=== PATIENT | female | born 1975 | race Caucasian/White ===

== ENCOUNTER 2016-12-10 18:48 | Observation (INO) | payer MEDICAID ==
[~2016-12-10] VITALS: Ht 157.5 cm; Wt 94.9 kg
[~2016-12-10 18:48] MED LIST: AZIT250T PO; BENZ100C PO; NYST1000 PO; PRED50TA PO
[2016-12-10] MEDS ORDERED: NITROGLYCERIN SUBLINGUAL 0.4 MG BOTTLE OF 25. SL PRN (19:45)
[2016-12-10 20:01] LABS: BASO # 0.1 x10^3/uL (0.0-0.2); BASO % 1 % (0-3); EOS % 1 % (0-3); HEMATOCRIT 42.9 % (36.0-47.0); HEMOGLOBIN 14.2 g/dL (12.0-15.5); LYMPH # 3.1 x10^3/uL (1.0-4.8); LYMPH % 21 % (24-48); MEAN CORPUSCULAR HEMOGLOBIN 31 pg (25-35); MEAN CORPUSCULAR HGB CONC 33 g/dL (31-37); MEAN CORPUSCULAR VOLUME 92 fL (79-100); MONO % 4 % (0-9); NEUT % 74 % (31-73); PLATELET COUNT 342 x10^3/uL (140-400); RED BLOOD COUNT 4.65 x10^6/uL (3.50-5.40); RED CELL DISTRIBUTION WIDTH 13.3 % (11.5-14.5); WHITE BLOOD COUNT 14.8 x10^3/uL (4.0-11.0)
[2016-12-10] MEDS ORDERED: ACETAMINOPHEN 325 MG TABLET. PO PRN ×2 (20:15→21:00)
[2016-12-10] MEDS ORDERED: ONDANSETRON PF 4 MG/2 ML VIAL. IV PRN ×2 (20:15→21:00)
[2016-12-10] MEDS ORDERED: FENTANYL PF 100 MCG/2 ML VIAL. IV PRN (20:15)
[2016-12-10 20:19] LABS: CALCIUM 9.5 mg/dL (8.5-10.1); CREATININE 0.7 mg/dL (0.6-1.0); GFR 92.2; POTASSIUM 3.5 mmol/L (3.5-5.1)
--- NOTE | 2016-12-10 20:24 | PHYS DOC ---
Past Medical History Past Medical History: Asthma, Bipolar, Bronchitis, COPD, CVA, Depression, Diabetes-Type II, High Cholesterol, Hypertension, Seizure, Stroke, Other Additional Past Medical Histor: DJD, NEUROPATHY, CHRONIC PAIN Past Surgical History: Appendectomy, Cholecystectomy, Tonsillectomy, Tubal ligation, Other Additional Past Surgical Histo: Tubes,X3 hernia, ear tubes Additional Information: 1 PPD Alcohol Use: None Drug Use: None Adult General Chief Complaint Chief Complaint: CHEST PAIN HPI HPI 41-year-old female who has had ongoing chest pain that started today while she was walking in her home. She states it is significant and localized to the middle of the chest and rated an 8 out of 10 on the pain scale. Patient does have history of multiple comorbidities including asthma, hypertension, hyperlipidemia, diabetes. Patient does not believe she is a had a significant cardiac workup before. She denies ever having chest pain to this degree. She does state mild shortness breath with her symptoms. She is speaking in complete sentences and in no acute distress at this time. Review of Systems Review of Systems Constitutional: Denies fever or chills [] Eyes: Denies change in visual acuity, redness, or eye pain [] HENT: Denies nasal congestion or sore throat [] Respiratory: Denies cough or shortness of breath [] Cardiovascular: No additional information not addressed in HPI [] GI: Denies abdominal pain, nausea, vomiting, bloody stools or diarrhea [] : Denies dysuria or hematuria [] Musculoskeletal: Denies back pain or joint pain [] Integument: Denies rash or skin lesions [] Neurologic: Denies headache, focal weakness or sensory changes [] Endocrine: Denies polyuria or polydipsia [] Current Medications Current Medications Current Medications Medications (Trade) Dose Ordered Sig/[facility] Start Time Stop Time Status Last Admin Dose Admin Acetaminophen (Tylenol) 650 mg PRN Q4HRS PRN 12/10/16 20:15 12/11/16 20:14 Fentanyl Citrate (Fentanyl 2ml Vial) 50 mcg PRN Q2HR PRN 12/10/16 20:15 12/11/16 20:14 Nitroglycerin (Nitrostat) 0.4 mg PRN Q5MIN PRN 12/10/16 19:45 12/10/16 19:50 0.4 MG Ondansetron HCl (Zofran) 4 mg PRN Q8HRS PRN 12/10/16 20:15 12/11/16 20:14 Allergies Allergies Allergies Coded Allergies Type Severity Reaction Last Updated Verified Penicillins Allergy Intermediate 04/12/15 Yes ibuprofen Allergy Intermediate 04/12/15 Yes ketorolac Allergy Intermediate 04/12/15 Yes prednisolone Allergy Intermediate 04/12/15 Yes red dye Allergy Intermediate 04/12/15 Yes tramadol Allergy Intermediate 04/12/15 Yes Physical Exam Physical Exam Constitutional: Well developed, well nourished, no acute distress, non-toxic appearance. [] HENT: Normocephalic, atraumatic, bilateral external ears normal, oropharynx moist, no oral exudates, nose normal. [] Eyes: PERRLA, EOMI, conjunctiva normal, no discharge. [] Neck: Normal range of motion, no tenderness, supple, no stridor. [] Cardiovascular:Heart rate regular rhythm, no murmur [] Lungs & Thorax: Bilateral breath sounds clear to auscultation [] Abdomen: Bowel sounds normal, soft, no tenderness, no masses, no pulsatile masses. [] Skin: Warm, dry, no erythema, no rash. [] Back: No tenderness, no CVA tenderness. [] Extremities: No tenderness, no cyanosis, no clubbing, ROM intact, no edema. [] Neurologic: Alert and oriented X 3, normal motor function, normal sensory function, no focal deficits noted. [] Psychologic: Affect normal, judgement normal, mood normal. [] Current Patient Data Vital Signs Vital Signs Date Time Temp Pulse Resp B/P Pulse Ox O2 Delivery O2 Flow Rate FiO2 12/10/16 19:50 90 139/73 12/10/16 18:48 98.8 17 98 Room Air 98.8 Lab Values Laboratory Tests Test 12/10/16 19:40 White Blood Count 14.8x10^3/uL (4.0-11.0) H Red Blood Count 4.65x10^6/uL (3.50-5.40) Hemoglobin 14.2g/dL (12.0-15.5) Hematocrit 42.9% (36.0-47.0) Mean Corpuscular Volume 92fL (79-100) Mean Corpuscular Hemoglobin 31pg (25-35) Mean Corpuscular Hemoglobin Concent 33g/dL (31-37) Red Cell Distribution Width 13.3% (11.5-14.5) Platelet Count 342x10^3/uL (140-400) Neutrophils (%) (Auto) 74% (31-73) H Lymphocytes (%) (Auto) 21% (24-48) L Monocytes (%) (Auto) 4% (0-9) Eosinophils (%) (Auto) 1% (0-3) Basophils (%) (Auto) 1% (0-3) Neutrophils # (Auto) 10.9x10^3uL (1.8-7.7) H Lymphocytes # (Auto) 3.1x10^3/uL (1.0-4.8) Monocytes # (Auto) 0.6x10^3/uL (0.0-1.1) Eosinophils # (Auto) 0.1x10^3/uL (0.0-0.7) Basophils # (Auto) 0.1x10^3/uL (0.0-0.2) Laboratory Tests 12/10/16 19:40 EKG EKG EKG as interpreted by me shows a sinus rhythm with a rate of 79 bpm. There does appear to be a left axis. There does not appear to be any acute ST findings. Radiology/Procedures Radiology/Procedures One view of the chest as interpreted by me does not demonstrate an acute cardiopulmonary abnormality. Course & Med Decision Making Course & Med Decision Making Pertinent Labs and Imaging studies reviewed. (See chart for details) This 41-year-old female with ongoing chest pain was given a subungual nitroglycerin. Patient was given a full aspirin by EMS. I'll be admitting her to the hospital for observation for her ongoing chest pain. Her first set of cardiac enzymes still pending at this time. Her EKG and chest x-ray are unremarkable. I discussed the need for admission and the case with Dr. Patel who agreed to admit the patient with cardiology consult. Dragon Disclaimer Dragon Disclaimer This electronic medical record was generated, in whole or in part, using a voice recognition dictation system. Departure Departure Impression: Primary Impression: Chest pain Disposition: ADMITTED INPATIENT Admitting Physician: Donato Patel Condition: STABLE Referrals: [facility] (PCP) MARII CASON DO Dec 10, 2016 20:24
[2016-12-10] MEDS ORDERED: hydrALAZINE 20 MG/ML VIAL. IVP PRN (21:00)
[2016-12-10] MEDS ORDERED: HYDROCODONE/APAP 5/325MG TABLET. PO PRN (21:00)
[2016-12-10] MEDS ORDERED: ALBUTEROL SULFATE 2.5 MG/3 ML NEBU. NEB PRN (21:00)
--- NOTE | 2016-12-10 21:08 | PDOC1 ---
History and Physical Past Medical History Past Medical History Past Medical History: Asthma, Bipolar, Bronchitis, COPD, CVA, Depression, Diabetes-Type II, High Cholesterol, Hypertension, Seizure, Stroke, DJD, NEUROPATHY, CHRONIC PAIN Past Surgical History: Appendectomy, Cholecystectomy, Tonsillectomy, Tubal ligation, Tubes,X3 hernia, ear tubes Family History Family History: Other (no sudden cardiac deaths) Social History Smoke: <1 pack per day Drugs: None Current Problem List Problem List Problems Medical Problems: (1) Chest pain Status: Acute Current Medications Current Medications Current Medications Medications (Trade) Dose Ordered Sig/Bret Start Time Stop Time Status Last Admin Dose Admin Acetaminophen (Tylenol) 325 mg PRN Q6HRS PRN 12/10/16 21:00 UNV Acetaminophen/ Hydrocodone Bitart (Lortab 5/325) 1 tab PRN Q6HRS PRN 12/10/16 21:00 UNV Albuterol Sulfate (Ventolin Neb Soln) 2.5 mg PRN Q4HRS PRN 12/10/16 21:00 UNV Fentanyl Citrate (Fentanyl 2ml Vial) 50 mcg PRN Q2HR PRN 12/10/16 20:15 12/11/16 20:14 Hydralazine HCl (Apresoline) 10 mg PRN Q4HRS PRN 12/10/16 21:00 UNV Nitroglycerin (Nitrostat) 0.4 mg PRN Q5MIN PRN 12/10/16 19:45 12/10/16 19:50 0.4 MG Ondansetron HCl (Zofran) 4 mg PRN Q8HRS PRN 12/10/16 21:00 UNV Allergies Allergies Allergies Coded Allergies Type Severity Reaction Last Updated Verified Penicillins Allergy Intermediate 04/12/15 Yes ibuprofen Allergy Intermediate 04/12/15 Yes ketorolac Allergy Intermediate 04/12/15 Yes prednisolone Allergy Intermediate 04/12/15 Yes red dye Allergy Intermediate 04/12/15 Yes tramadol Allergy Intermediate 04/12/15 Yes ROS Review of System CONSTITUTIONAL: No fever or chills EYES: No recent changes SKIN: No rash or itching CARDIOVASCULAR: Chest pain, NO Syncope, palpitations, or edema RESPIRATORY: No SOB or cough GASTROINTESTINAL: No nausea, vomiting or abdominal pain NEUROLOGICAL: No headaches or weakness ENDOCRINE: No cold or heat intolerance GENITOURINARY: No urgency or frequency of urination MUSCULOSKELETAL: No back pain or joint pain LYMPHATICS: No enlarged lymph nodes PSYCHIATRIC: No anxiety or depression Physical Exam Physical Exam GEN.: No apparent distress. Alert and oriented. HEENT: Head is normocephalic, atraumatic NECK: Supple. no JVD LUNGS: Clear to auscultation. normal airflow HEART: RRR, S1, S2 present. Peripheral pulses intact ABDOMEN: Soft, nontender. Positive bowel sounds. EXTREMITIES: Without any cyanosis. NEUROLOGIC: Normal speech, normal tone PSYCHIATRIC: Normal affect, normal mood. SKIN: No ulcerations Vitals Vitals Vital Signs Date Time Temp Pulse Resp B/P Pulse Ox O2 Delivery O2 Flow Rate FiO2 12/10/16 20:24 84 16 118/59 97 Room Air 12/10/16 18:48 98.8 98.8 Labs Labs Laboratory Tests Test 12/10/16 19:40 White Blood Count 14.8x10^3/uL (4.0-11.0) Red Blood Count 4.65x10^6/uL (3.50-5.40) Hemoglobin 14.2g/dL (12.0-15.5) Hematocrit 42.9% (36.0-47.0) Mean Corpuscular Volume 92fL (79-100) Mean Corpuscular Hemoglobin 31pg (25-35) Mean Corpuscular Hemoglobin Concent 33g/dL (31-37) Red Cell Distribution Width 13.3% (11.5-14.5) Platelet Count 342x10^3/uL (140-400) Neutrophils (%) (Auto) 74% (31-73) Lymphocytes (%) (Auto) 21% (24-48) Monocytes (%) (Auto) 4% (0-9) Eosinophils (%) (Auto) 1% (0-3) Basophils (%) (Auto) 1% (0-3) Neutrophils # (Auto) 10.9x10^3uL (1.8-7.7) Lymphocytes # (Auto) 3.1x10^3/uL (1.0-4.8) Monocytes # (Auto) 0.6x10^3/uL (0.0-1.1) Eosinophils # (Auto) 0.1x10^3/uL (0.0-0.7) Basophils # (Auto) 0.1x10^3/uL (0.0-0.2) Sodium Level 139mmol/L (136-145) Potassium Level 3.5mmol/L (3.5-5.1) Chloride Level 101mmol/L (98-107) Carbon Dioxide Level 28mmol/L (21-32) Anion Gap 10 (6-14) Blood Urea Nitrogen 9mg/dL (7-20) Creatinine 0.7mg/dL (0.6-1.0) Estimated GFR (Cockcroft-Gault) 92.2 Glucose Level 194mg/dL (70-99) Calcium Level 9.5mg/dL (8.5-10.1) Troponin I Quantitative < 0.017ng/mL (0.000-0.055) Laboratory Tests Test 12/10/16 19:40 White Blood Count 14.8x10^3/uL (4.0-11.0) Red Blood Count 4.65x10^6/uL (3.50-5.40) Hemoglobin 14.2g/dL (12.0-15.5) Hematocrit 42.9% (36.0-47.0) Mean Corpuscular Volume 92fL (79-100) Mean Corpuscular Hemoglobin 31pg (25-35) Mean Corpuscular Hemoglobin Concent 33g/dL (31-37) Red Cell Distribution Width 13.3% (11.5-14.5) Platelet Count 342x10^3/uL (140-400) Neutrophils (%) (Auto) 74% (31-73) Lymphocytes (%) (Auto) 21% (24-48) Monocytes (%) (Auto) 4% (0-9) Eosinophils (%) (Auto) 1% (0-3) Basophils (%) (Auto) 1% (0-3) Neutrophils # (Auto) 10.9x10^3uL (1.8-7.7) Lymphocytes # (Auto) 3.1x10^3/uL (1.0-4.8) Monocytes # (Auto) 0.6x10^3/uL (0.0-1.1) Eosinophils # (Auto) 0.1x10^3/uL (0.0-0.7) Basophils # (Auto) 0.1x10^3/uL (0.0-0.2) Sodium Level 139mmol/L (136-145) Potassium Level 3.5mmol/L (3.5-5.1) Chloride Level 101mmol/L (98-107) Carbon Dioxide Level 28mmol/L (21-32) Anion Gap 10 (6-14) Blood Urea Nitrogen 9mg/dL (7-20) Creatinine 0.7mg/dL (0.6-1.0) Estimated GFR (Cockcroft-Gault) 92.2 Glucose Level 194mg/dL (70-99) Calcium Level 9.5mg/dL (8.5-10.1) Troponin I Quantitative < 0.017ng/mL (0.000-0.055) VTE Prophylaxis Ordered VTE Prophylaxis Devices: Yes VTE Pharmacological Prophylaxi: Yes MALCOLM DIAZ MD Dec 10, 2016 21:08
[2016-12-10 21:52] VITALS: BP 139/42
[2016-12-10 23:00] VITALS: BP 114/68
--- NOTE | 2016-12-11 00:22 | ACF ---
Admission Forms Criteria CHEST PAIN Clinical Indications for Admission to Inpatient Care (Place 'X' for any and all applicable criteria): Admission is indicated for chest pain and ANY ONE of the following(1)(2)(3)(4)(5 ): [ ]I. Angina with acute coronary syndrome (Also use Myocardial Infarction or Angina guideline) [ ]II. Hemodynamic instability [ ]III. Angina needing acute intervention as indicated by ALL of the following( 11)(12): [ ]a) Unstable angina is present as indicated by angina that is ANY ONE of the following: [ ]i) New onset [ ]ii) Nocturnal [ ]iii) Prolonged at rest [ ]iv) Progressive [ ]b) Angina warrants acute intervention as indicated by ANY ONE of the following: [ ]i) Recurrent angina (e.g, not responding as previously to treatment) [ ]ii) Angina at rest or with low-level activities despite initial medical therapy [ ]iii) New or presumably new ST-segment depression on ECG [ ]iv) Signs or symptoms of heart failure (eg, dyspnea, pulmonary edema) [ ]v) New or worsening mitral regurgitation [ ]vi) Hemodynamic instability [ ]vii) Dangerous arrhythmia (eg, sustained ventricular tachycardia) [ ]viii) History of percutaneous coronary intervention within 6 months [ ]ix) History of coronary artery bypass graft surgery [ ]x) DEEPTI risk score of 2 or greater[A] [ ]xi) History of Diabetes(14) [ ]xii) High-risk cardiac ischemia findings on noninvasive testing (e.g, echocardiogram, treadmill testing, nuclear scan) [ ]xiii) Chronic renal insufficiency (ie, estimated GFR less than 60 mL/min/1.732m) [ ]xiv) Left ventricular ejection fraction less than 40% [ ]IV. Evidence of NE (eg, cardiac biomarkers positive, ST-segment elevation on ECG) also use Myocardial Infarction Criteria Form. [ ]V. Pulmonary edema [ ]. Respiratory distress [ ]VII. Chest pain indicative of serious diagnosis other than coronary artery disease (eg, aortic dissection) [ X]VIII. Contraindications and/or Inappropriate clinical situations for Observational Care in patients with Chest Pain, when ANY ONE of the following is required: [ ]a) Patient with risk factor for pulmonary embolism, acute coronary syndrome and myocardial infarction (18) [ ]b) Patient with Pulmonary embolism require an average LOS of 4.3 days, therefore emergency department observation management is inappropriate 18,23 [ ]c) Painful condition/s in the elderly, have the highest rate of recidivism after emergency department observation management (10.8%) 20,21,22 [X ]d) Elevated cardiac biomarker requires intensive and exhaustive care (19) [ ]IX. General contraindications and/or Inappropriate clinical situations for Observational Care in patients with Chest Pain, when ANY ONE of the following is required: [ ]a) Prediction of prolongation of LOS based on ANY ONE of the following may be considered as a contraindication for observational care 2, 3, 4, 5, 6, 7, 8, 9, 10, 11 [ ]i) Age > 65 yrs. [ ]ii) Patient arriving by ambulance [ ]iii) Patient with high acuity [ ]iv) Patient requiring vital sign monitoring [ ]v) Patient on IV medication [ ]b) Systolic blood pressures 180mmHg 3,12 [ ]c) Patient with altered mental status including delirium and other alteration of consciousness, (3) [ ]d) Patient whose discharge disposition will be to a fdc home or rehabilitation home should not be managed in Emergency Department Observation Unit. CMS rule requires 3 days hospital stay before such placement. 3,13 [ ]e) Patient with failure to thrive due to broad array of etiologies 3,16,17 [ ]f) Inability to ambulate 3,14 Extended stay beyond goal length of stay may be needed for (1)(28): [ ]a) Specific condition diagnosed after evaluation (eg, pulmonary embolism, aortic dissection) [ ]b) Unstable angina [ ]c) Continued suspicion of acute coronary syndrome with inability to complete needed cardiac evaluation (eg, patient clinically unable to undergo stress testing) [ ]d) Myocardial infarction (Contents from ANGINA and CHEST PAIN clinical indications for admission to inpatient care have been integrated in this form) The original [facility] content created by [employer] has been revised. The portions of the content which have been revised are identified through the use of italic text or in bold, and [facility] has neither reviewed nor approved the modified material. All other unmodified content is copyright [facility]. Please see references footnoted in the original [facility] [employer] edition 2016 Admission Criteria Met?: Yes SUMMER TRACY Dec 11, 2016 00:22
[2016-12-11 03:00] VITALS: BP 112/70
[2016-12-11] MEDS ORDERED: INSU100I17 SQ ×2 (03:49)
[2016-12-11] MEDS ORDERED: BUPR150T8 PO (03:49)
[2016-12-11] MEDS ORDERED: METF850T2 PO (03:49)
[2016-12-11] MEDS ORDERED: DULO60CA6 PO (03:49)
[2016-12-11] MEDS ORDERED: INSU100V13 SQ (03:49)
[2016-12-11] MEDS ORDERED: GABA800T2 PO (03:49)
[2016-12-11] MEDS ORDERED: GLIM4TAB2 PO (03:49)
[2016-12-11] MEDS ORDERED: ASPI81TA2 PO (03:49)
[2016-12-11] MEDS ORDERED: GABA-587 PO (03:49)
[2016-12-11 06:55] LABS: CALCIUM 8.6 mg/dL (8.5-10.1); CREATININE 0.6 mg/dL (0.6-1.0); GFR 110.2; POTASSIUM 3.8 mmol/L (3.5-5.1)
[2016-12-11 07:15] VITALS: BP 100/64
[2016-12-11 07:31] LABS: BASO # 0.1 x10^3/uL (0.0-0.2); BASO % 1 % (0-3); EOS % 1 % (0-3); HEMATOCRIT 42.9 % (36.0-47.0); HEMOGLOBIN 14.3 g/dL (12.0-15.5); LYMPH # 2.5 x10^3/uL (1.0-4.8); LYMPH % 27 % (24-48); MEAN CORPUSCULAR HEMOGLOBIN 31 pg (25-35); MEAN CORPUSCULAR HGB CONC 33 g/dL (31-37); MEAN CORPUSCULAR VOLUME 94 fL (79-100); MONO % 5 % (0-9); NEUT % 67 % (31-73); PLATELET COUNT 314 x10^3/uL (140-400); RED BLOOD COUNT 4.57 x10^6/uL (3.50-5.40); WHITE BLOOD COUNT 9.2 x10^3/uL (4.0-11.0)
[2016-12-11] MEDS ORDERED: GLIMEPIRIDE 2 MG TABLET PO SCH (08:00)
[2016-12-11] MEDS ORDERED: METFORMIN 850 MG TABLET PO SCH (08:00)
[2016-12-11] MEDS ORDERED: INSULIN ASPART 300 UNITS/3 ML INSULN.PEN SQ SCH ×2 (08:00→11:30)
[2016-12-11] MEDS ORDERED: ASPIRIN 81 MG TAB.CHEW PO SCH (08:00)
--- NOTE | 2016-12-11 08:48 | PDOC2 ---
CORYTEDDY David ORTHOPEDIC RADIOLOGIC TECHNOLOGIST 12/11/16 0848: CARDIAC CONSULT DATE OF CONSULT Date of Consult DATE: 12/11/16 TIME: 08:45 REASON FOR CONSULT Reason for Consult: chest pain HISTORY OF PRESENT ILLNESS HISTORY OF PRESENT ILLNESS Ms Montoya is a 41 year old female with a history of hypertension, hyperlipidemia and diabetes mellitus type II as well as a CVA as an infant. She presents with complaints of midsternal chest pain that started about 6pm while cooking dinner. She describes it as sharp with associated shooting pain in her left arm and dyspnea. She reports the pain increased with exertion and improved, though not resolved, with rest. She presented to the ED and reports pain was resolved with NTG. She denies any associated nausea/vomiting/diaphoresis. She denies congestive symptoms or edema. She denies lightheadedness, palpitations, presyncope or syncope. She reports being active and walking for exercise. She is able to walk 6 blocks, 1/2 up hill, without problems. PAST MEDICAL HISTORY Cardiovascular: HTN, Hyperlipidemia Pulmonary: Asthma, COPD CENTRAL NERVOUS SYSTEM: CVA, Seizure Psych: Bipolar, Depression Musculoskeletal: Other (DJD) Endocrine: Diabetes PAST SURGICAL HISTORY Past Surgical History: Appendectomy, Cholecystectomy, Hernia Repair (x3), Tubal Ligation, Tonsillectomy, Other (tubes in her ears) FAMILY HISTORY Family History she denies family history of coronary disease SOCIAL HISTORY Social History 1 ppd smoker ( down from 2.5 ppd) denies ETOH or illicit drugs CURRENT MEDICATIONS CURRENT MEDICATIONS Current Medications Medications (Trade) Dose Ordered Sig/Bret Route PRN Reason Start Time Stop Time Status Last Admin Dose Admin Nitroglycerin (Nitrostat) 0.4 mg PRN Q5MIN PRN SL CHEST PAIN 12/10/16 19:45 12/10/16 19:50 ALLERGIES ALLERGIES: Coded Allergies: Penicillins (Verified Allergy, Intermediate, 04/12/15) ibuprofen (Verified Allergy, Intermediate, 04/12/15) ketorolac (Verified Allergy, Intermediate, 04/12/15) prednisolone (Verified Allergy, Intermediate, 04/12/15) red dye (Verified Allergy, Intermediate, 04/12/15) tramadol (Verified Allergy, Intermediate, 04/12/15) ROS Review of System as per HPI or negative PHYSICAL EXAM General: Alert, Oriented X3, Cooperative, No acute distress HEENT: Atraumatic, EOMI, Mucous membr. moist/pink Lungs: Clear to auscultation, Normal air movement Heart: Regular rate, Normal S1, Normal S2, Other (no obvious murmurs, no gallops, clicks or rubs) Abdomen: Normal bowel sounds, Soft Extremities: No cyanosis, No edema, Normal pulses Neuro: Strength at 5/5 X4 ext Psych/Mental Status: Mental status NL, Mood NL VITALS VITALS Vital Signs Date Time Temp Pulse Resp B/P Pulse Ox O2 Delivery O2 Flow Rate FiO2 12/11/16 03:00 97.7 71 18 112/70 98 Room Air 97.7 LABS Lab: Laboratory Tests Test 12/10/16 19:40 12/10/16 21:08 12/11/16 02:45 12/11/16 07:33 White Blood Count 14.8x10^3/uL (4.0-11.0) 9.2x10^3/uL (4.0-11.0) Red Blood Count 4.65x10^6/uL (3.50-5.40) 4.57x10^6/uL (3.50-5.40) Hemoglobin 14.2g/dL (12.0-15.5) 14.3g/dL (12.0-15.5) Hematocrit 42.9% (36.0-47.0) 42.9% (36.0-47.0) Mean Corpuscular Volume 92fL (79-100) 94fL (79-100) Mean Corpuscular Hemoglobin 31pg (25-35) 31pg (25-35) Mean Corpuscular Hemoglobin Concent 33g/dL (31-37) 33g/dL (31-37) Red Cell Distribution Width 13.3% (11.5-14.5) 13.0% (11.5-14.5) Platelet Count 342x10^3/uL (140-400) 314x10^3/uL (140-400) Neutrophils (%) (Auto) 74% (31-73) 67% (31-73) Lymphocytes (%) (Auto) 21% (24-48) 27% (24-48) Monocytes (%) (Auto) 4% (0-9) 5% (0-9) Eosinophils (%) (Auto) 1% (0-3) 1% (0-3) Basophils (%) (Auto) 1% (0-3) 1% (0-3) Neutrophils # (Auto) 10.9x10^3uL (1.8-7.7) 6.2x10^3uL (1.8-7.7) Lymphocytes # (Auto) 3.1x10^3/uL (1.0-4.8) 2.5x10^3/uL (1.0-4.8) Monocytes # (Auto) 0.6x10^3/uL (0.0-1.1) 0.4x10^3/uL (0.0-1.1) Eosinophils # (Auto) 0.1x10^3/uL (0.0-0.7) 0.1x10^3/uL (0.0-0.7) Basophils # (Auto) 0.1x10^3/uL (0.0-0.2) 0.1x10^3/uL (0.0-0.2) Sodium Level 139mmol/L (136-145) 139mmol/L (136-145) Potassium Level 3.5mmol/L (3.5-5.1) 3.8mmol/L (3.5-5.1) Chloride Level 101mmol/L (98-107) 105mmol/L (98-107) Carbon Dioxide Level 28mmol/L (21-32) 29mmol/L (21-32) Anion Gap 10 (6-14) 5 (6-14) Blood Urea Nitrogen 9mg/dL (7-20) 9mg/dL (7-20) Creatinine 0.7mg/dL (0.6-1.0) 0.6mg/dL (0.6-1.0) Estimated GFR (Cockcroft-Gault) 92.2 110.2 Glucose Level 194mg/dL (70-99) 231mg/dL (70-99) Calcium Level 9.5mg/dL (8.5-10.1) 8.6mg/dL (8.5-10.1) Troponin I Quantitative < 0.017ng/mL (0.000-0.055) < 0.017ng/mL (0.000-0.055) Glucose (Fingerstick) 180mg/dL (70-99) 193mg/dL (70-99) Test 12/11/16 07:55 Troponin I Quantitative < 0.017ng/mL (0.000-0.055) IMAGES IMAGES CXR - pending EKG EKG unavailable for review ASSESSMENT/PLAN ASSESSMENT/PLAN 1. chest pain with mixed features - cardiac enzymes negative. considering her multiple risk factors, would recommend MPI. 2. hypertension 3. diabetes mellitus II - per PCP 4. tobaccoism - cessation encouraged 5. hyperlipidemia - check lipids Problems: PASQUALE CORNELL MD 12/11/16 1414: CARDIAC CONSULT ALLERGIES ALLERGIES: Coded Allergies: Penicillins (Verified Allergy, Intermediate, 04/12/15) ibuprofen (Verified Allergy, Intermediate, 04/12/15) ketorolac (Verified Allergy, Intermediate, 04/12/15) prednisolone (Verified Allergy, Intermediate, 04/12/15) red dye (Verified Allergy, Intermediate, 04/12/15) tramadol (Verified Allergy, Intermediate, 04/12/15) ASSESSMENT/PLAN ASSESSMENT/PLAN Pt. seen and examined. Agree with above POLITICAL ANALYST note. 41 obese female with multiple risk factors No abn on cardiac exam. labs reviewed MPI wnl Supportive care. pls call with questions. Problems: TEDDY RAY APRN Dec 11, 2016 08:48 PASQUALE CORNELL MD Dec 11, 2016 14:14
--- NOTE | 2016-12-11 08:48 | RAD ---
Single view chest History:Chest pain today An AP view of the chest is submitted. Comparison: 08/31/2016. Findings: There is increased patchy airspace opacity of the mid to superior right hemithorax. Heart size is stable. There may be a very small right pleural effusion. No pneumothorax is identified. Impression: 1. There is increased airspace opacity mid to superior right hemithorax likely due to infiltrate although short-term follow-up after treatment is advised. There may be small right pleural effusion.
[2016-12-11] MEDS ORDERED: DULOXETINE HCL 30 MG CAPSULE.DR. PO SCH (09:00)
[2016-12-11] MEDS ORDERED: buPROPion SR 150 MG TABLET.SA PO SCH (09:00)
[2016-12-11] MEDS ORDERED: REGADENOSON 0.4 MG/5 ML DISP.SYRIN. IV ONE (09:30)
[2016-12-11 09:45] LABS: CHOLESTEROL/HDL RATIO 3.7
[2016-12-11 10:50] VITALS: BP 121/78
[2016-12-11] MEDS: GABAPENTIN 400 MG CAPSULE. PO SCH ×2 (10:54→12:00)
[2016-12-11] MEDS: NYSTATIN 100,000 UNITS/ML 5 ML ORAL.SUSP. PO SCH ×2 (10:55→12:13)
--- NOTE | 2016-12-11 12:04 | PDOC ---
PROGRESS NOTES Chief Complaint Chief Complaint 1. Chest pain 2. Shortness of breath 3. Dyspnea of exertion 4. Hypertension 5. Hyperlipidemia 6. DM2 7. Tobaccoism History of Present Illness History of Present Illness Pt receiving MPI when seen and examined this AM. Pt denies any current CP and less SOB. All questions and concerns addressed and answered. Vitals Vitals Vital Signs Date Time Temp Pulse Resp B/P Pulse Ox O2 Delivery O2 Flow Rate FiO2 12/11/16 08:00 Room Air 12/11/16 07:15 97.5 77 17 100/64 95 97.5 Physical Exam General: Alert, Oriented X3, Cooperative, No acute distress Heart: Regular rate, Normal S1, Normal S2, No murmurs, Other (no obvious murmurs, no gallops, clicks or rubs) Lungs: Clear Abdomen: Normal bowel sounds, Soft Extremities: No clubbing, No cyanosis, No edema, Normal pulses Skin: No rashes, No breakdown, No significant lesion Labs LABS Laboratory Tests Test 12/10/16 19:40 12/10/16 21:08 12/11/16 02:45 12/11/16 07:30 White Blood Count 14.8x10^3/uL (4.0-11.0) 9.2x10^3/uL (4.0-11.0) Red Blood Count 4.65x10^6/uL (3.50-5.40) 4.57x10^6/uL (3.50-5.40) Hemoglobin 14.2g/dL (12.0-15.5) 14.3g/dL (12.0-15.5) Hematocrit 42.9% (36.0-47.0) 42.9% (36.0-47.0) Mean Corpuscular Volume 92fL (79-100) 94fL (79-100) Mean Corpuscular Hemoglobin 31pg (25-35) 31pg (25-35) Mean Corpuscular Hemoglobin Concent 33g/dL (31-37) 33g/dL (31-37) Red Cell Distribution Width 13.3% (11.5-14.5) 13.0% (11.5-14.5) Platelet Count 342x10^3/uL (140-400) 314x10^3/uL (140-400) Neutrophils (%) (Auto) 74% (31-73) 67% (31-73) Lymphocytes (%) (Auto) 21% (24-48) 27% (24-48) Monocytes (%) (Auto) 4% (0-9) 5% (0-9) Eosinophils (%) (Auto) 1% (0-3) 1% (0-3) Basophils (%) (Auto) 1% (0-3) 1% (0-3) Neutrophils # (Auto) 10.9x10^3uL (1.8-7.7) 6.2x10^3uL (1.8-7.7) Lymphocytes # (Auto) 3.1x10^3/uL (1.0-4.8) 2.5x10^3/uL (1.0-4.8) Monocytes # (Auto) 0.6x10^3/uL (0.0-1.1) 0.4x10^3/uL (0.0-1.1) Eosinophils # (Auto) 0.1x10^3/uL (0.0-0.7) 0.1x10^3/uL (0.0-0.7) Basophils # (Auto) 0.1x10^3/uL (0.0-0.2) 0.1x10^3/uL (0.0-0.2) Sodium Level 139mmol/L (136-145) 139mmol/L (136-145) Potassium Level 3.5mmol/L (3.5-5.1) 3.8mmol/L (3.5-5.1) Chloride Level 101mmol/L (98-107) 105mmol/L (98-107) Carbon Dioxide Level 28mmol/L (21-32) 29mmol/L (21-32) Anion Gap 10 (6-14) 5 (6-14) Blood Urea Nitrogen 9mg/dL (7-20) 9mg/dL (7-20) Creatinine 0.7mg/dL (0.6-1.0) 0.6mg/dL (0.6-1.0) Estimated GFR (Cockcroft-Gault) 92.2 110.2 Glucose Level 194mg/dL (70-99) 231mg/dL (70-99) Calcium Level 9.5mg/dL (8.5-10.1) 8.6mg/dL (8.5-10.1) Troponin I Quantitative < 0.017ng/mL (0.000-0.055) < 0.017ng/mL (0.000-0.055) Glucose (Fingerstick) 180mg/dL (70-99) Triglycerides Level 88mg/dL (0-150) Cholesterol Level 112mg/dL (0-200) LDL Cholesterol, Calculated 64mg/dL (0-100) VLDL Cholesterol, Calculated 18mg/dL (0-40) HDL Cholesterol 30mg/dL (40-60) Cholesterol/HDL Ratio 3.7 Test 12/11/16 07:33 12/11/16 07:55 12/11/16 10:53 Glucose (Fingerstick) 193mg/dL (70-99) 189mg/dL (70-99) Troponin I Quantitative < 0.017ng/mL (0.000-0.055) Review of Systems Review of Systems Patient complaint of hunger Patient complaint of fatigue Assessment and Plan Assessmemt and Plan Problems Medical Problems: (1) Chest pain Status: Acute Assessment: 1. Chest pain 2. Shortness of breath 3. Dyspnea of exertion 4. Hypertension 5. Hyperlipidemia 6. DM2 7. Tobaccoism Plan: Continue to monitor the patient per floor protocol Continue home meds Await results of MPI Appreciate Cards input and evaluation Possible DC when ok with Cardiology DW RN Daily labs Daily PTOT Problems: Comment Review of Relevant I have reviewed the following items deirdre (where applicable) has been applied. Labs Laboratory Tests Test 12/10/16 19:40 12/10/16 21:08 12/11/16 02:45 12/11/16 07:30 White Blood Count 14.8x10^3/uL (4.0-11.0) 9.2x10^3/uL (4.0-11.0) Red Blood Count 4.65x10^6/uL (3.50-5.40) 4.57x10^6/uL (3.50-5.40) Hemoglobin 14.2g/dL (12.0-15.5) 14.3g/dL (12.0-15.5) Hematocrit 42.9% (36.0-47.0) 42.9% (36.0-47.0) Mean Corpuscular Volume 92fL (79-100) 94fL (79-100) Mean Corpuscular Hemoglobin 31pg (25-35) 31pg (25-35) Mean Corpuscular Hemoglobin Concent 33g/dL (31-37) 33g/dL (31-37) Red Cell Distribution Width 13.3% (11.5-14.5) 13.0% (11.5-14.5) Platelet Count 342x10^3/uL (140-400) 314x10^3/uL (140-400) Neutrophils (%) (Auto) 74% (31-73) 67% (31-73) Lymphocytes (%) (Auto) 21% (24-48) 27% (24-48) Monocytes (%) (Auto) 4% (0-9) 5% (0-9) Eosinophils (%) (Auto) 1% (0-3) 1% (0-3) Basophils (%) (Auto) 1% (0-3) 1% (0-3) Neutrophils # (Auto) 10.9x10^3uL (1.8-7.7) 6.2x10^3uL (1.8-7.7) Lymphocytes # (Auto) 3.1x10^3/uL (1.0-4.8) 2.5x10^3/uL (1.0-4.8) Monocytes # (Auto) 0.6x10^3/uL (0.0-1.1) 0.4x10^3/uL (0.0-1.1) Eosinophils # (Auto) 0.1x10^3/uL (0.0-0.7) 0.1x10^3/uL (0.0-0.7) Basophils # (Auto) 0.1x10^3/uL (0.0-0.2) 0.1x10^3/uL (0.0-0.2) Sodium Level 139mmol/L (136-145) 139mmol/L (136-145) Potassium Level 3.5mmol/L (3.5-5.1) 3.8mmol/L (3.5-5.1) Chloride Level 101mmol/L (98-107) 105mmol/L (98-107) Carbon Dioxide Level 28mmol/L (21-32) 29mmol/L (21-32) Anion Gap 10 (6-14) 5 (6-14) Blood Urea Nitrogen 9mg/dL (7-20) 9mg/dL (7-20) Creatinine 0.7mg/dL (0.6-1.0) 0.6mg/dL (0.6-1.0) Estimated GFR (Cockcroft-Gault) 92.2 110.2 Glucose Level 194mg/dL (70-99) 231mg/dL (70-99) Calcium Level 9.5mg/dL (8.5-10.1) 8.6mg/dL (8.5-10.1) Troponin I Quantitative < 0.017ng/mL (0.000-0.055) < 0.017ng/mL (0.000-0.055) Glucose (Fingerstick) 180mg/dL (70-99) Triglycerides Level 88mg/dL (0-150) Cholesterol Level 112mg/dL (0-200) LDL Cholesterol, Calculated 64mg/dL (0-100) VLDL Cholesterol, Calculated 18mg/dL (0-40) HDL Cholesterol 30mg/dL (40-60) Cholesterol/HDL Ratio 3.7 Test 12/11/16 07:33 12/11/16 07:55 12/11/16 10:53 Glucose (Fingerstick) 193mg/dL (70-99) 189mg/dL (70-99) Troponin I Quantitative < 0.017ng/mL (0.000-0.055) Laboratory Tests Test 12/10/16 19:40 12/10/16 21:08 12/11/16 02:45 12/11/16 07:30 White Blood Count 14.8x10^3/uL (4.0-11.0) 9.2x10^3/uL (4.0-11.0) Red Blood Count 4.65x10^6/uL (3.50-5.40) 4.57x10^6/uL (3.50-5.40) Hemoglobin 14.2g/dL (12.0-15.5) 14.3g/dL (12.0-15.5) Hematocrit 42.9% (36.0-47.0) 42.9% (36.0-47.0) Mean Corpuscular Volume 92fL (79-100) 94fL (79-100) Mean Corpuscular Hemoglobin 31pg (25-35) 31pg (25-35) Mean Corpuscular Hemoglobin Concent 33g/dL (31-37) 33g/dL (31-37) Red Cell Distribution Width 13.3% (11.5-14.5) 13.0% (11.5-14.5) Platelet Count 342x10^3/uL (140-400) 314x10^3/uL (140-400) Neutrophils (%) (Auto) 74% (31-73) 67% (31-73) Lymphocytes (%) (Auto) 21% (24-48) 27% (24-48) Monocytes (%) (Auto) 4% (0-9) 5% (0-9) Eosinophils (%) (Auto) 1% (0-3) 1% (0-3) Basophils (%) (Auto) 1% (0-3) 1% (0-3) Neutrophils # (Auto) 10.9x10^3uL (1.8-7.7) 6.2x10^3uL (1.8-7.7) Lymphocytes # (Auto) 3.1x10^3/uL (1.0-4.8) 2.5x10^3/uL (1.0-4.8) Monocytes # (Auto) 0.6x10^3/uL (0.0-1.1) 0.4x10^3/uL (0.0-1.1) Eosinophils # (Auto) 0.1x10^3/uL (0.0-0.7) 0.1x10^3/uL (0.0-0.7) Basophils # (Auto) 0.1x10^3/uL (0.0-0.2) 0.1x10^3/uL (0.0-0.2) Sodium Level 139mmol/L (136-145) 139mmol/L (136-145) Potassium Level 3.5mmol/L (3.5-5.1) 3.8mmol/L (3.5-5.1) Chloride Level 101mmol/L (98-107) 105mmol/L (98-107) Carbon Dioxide Level 28mmol/L (21-32) 29mmol/L (21-32) Anion Gap 10 (6-14) 5 (6-14) Blood Urea Nitrogen 9mg/dL (7-20) 9mg/dL (7-20) Creatinine 0.7mg/dL (0.6-1.0) 0.6mg/dL (0.6-1.0) Estimated GFR (Cockcroft-Gault) 92.2 110.2 Glucose Level 194mg/dL (70-99) 231mg/dL (70-99) Calcium Level 9.5mg/dL (8.5-10.1) 8.6mg/dL (8.5-10.1) Troponin I Quantitative < 0.017ng/mL (0.000-0.055) < 0.017ng/mL (0.000-0.055) Glucose (Fingerstick) 180mg/dL (70-99) Triglycerides Level 88mg/dL (0-150) Cholesterol Level 112mg/dL (0-200) LDL Cholesterol, Calculated 64mg/dL (0-100) VLDL Cholesterol, Calculated 18mg/dL (0-40) HDL Cholesterol 30mg/dL (40-60) Cholesterol/HDL Ratio 3.7 Test 12/11/16 07:33 12/11/16 07:55 12/11/16 10:53 Glucose (Fingerstick) 193mg/dL (70-99) 189mg/dL (70-99) Troponin I Quantitative < 0.017ng/mL (0.000-0.055) Medications Current Medications Nitroglycerin (Nitrostat) 0.4 mg PRN Q5MIN PRN SL CHEST PAIN Last administered on 12/10/16t 19:50; Start 12/10/16 at 19:45 Ondansetron HCl (Zofran) 4 mg PRN Q8HRS PRN IV NAUSEA/VOMITING; Start 12/10/16 at 20:15; Stop 12/11/16 at 20:14 Fentanyl Citrate (Fentanyl 2ml Vial) 50 mcg PRN Q2HR PRN IV PAIN; Start at 20:15; Stop 12/11/16 at 20:14 Acetaminophen (Tylenol) 650 mg PRN Q4HRS PRN PO FEVER; Start 12/10/16 at 20:15 ; Stop 12/11/16 at 20:14 Acetaminophen (Tylenol) 325 mg PRN Q6HRS PRN PO MILD PAIN / TEMP; Start at 21:00 Acetaminophen/ Hydrocodone Bitart (Lortab 5/325) 1 tab PRN Q6HRS PRN PO MODERATE TO SEVERE PAIN; Start 12/10/16 at 21:00 Hydralazine HCl (Apresoline) 10 mg PRN Q4HRS PRN IVP ELEVATED BP, SEE COMMENTS ; Start 12/10/16 at 21:00 Ondansetron HCl (Zofran) 4 mg PRN Q8HRS PRN IV NAUSEA/VOMITING; Start 12/10/16 at 21:00 Albuterol Sulfate (Ventolin Neb Soln) 2.5 mg PRN Q4HRS PRN NEB SHORTNESS OF BREATH; Start 12/10/16 at 21:00 Aspirin (Children'S Aspirin) 81 mg DAILYWBKFT PO Last administered on 10:55; Start 12/11/16 at 08:00 Bupropion HCl (Wellbutrin Sr) 150 mg DAILY PO Last administered on 12/11/16 10 :54; Start 12/11/16 at 09:00 Gabapentin (Neurontin) 400 mg TIDWMEALS PO Last administered on 12/11/16 10:54 ; Start 12/11/16 at 08:00 Insulin Aspart (Novolog) 8 units DAILYWBKFT SQ Last administered on 12/11/16 10:56; Start 12/11/16 at 08:00 Insulin Aspart (Novolog) 10 units BIDACLD SQ ; Start 12/11/16 at 11:30 Metformin HCl (Glucophage) 850 mg BIDWMEALS PO Last administered on 12/11/16 10:54; Start 12/11/16 at 08:00 Nystatin 5 ml QID PO Last administered on 12/11/16 10:55; Start 12/11/16 at 09 :00 Duloxetine HCl (Cymbalta) 60 mg BID PO Last administered on 12/11/16 10:54; Start 12/11/16 at 09:00 Gabapentin (Neurontin) 800 mg QHS PO ; Start 12/11/16 at 21:00 Glimepiride (Amaryl) 5 mg BIDWMEALS PO Last administered on 12/11/16 10:55; Start 12/11/16 at 08:00 Insulin Detemir (Levemir) 40 units QHS SQ ; Start 12/11/16 at 21:00 Regadenoson (Lexiscan) 0.4 mg 1X ONCE IV Last administered on 12/11/16 10:32 ; Start 12/11/16 at 09:30; Stop 12/11/16 at 09:31; Status DC Active Scripts Active Tessalon Perle (Benzonatate) 100 Mg Capsule 200 Mg PO TID PRN Prednisone 50 Mg Tablet 1 Tab PO DAILY Nystatin 100,000 Unit/1 Ml Oral.susp 5 Ml PO QID Swish and spit Zithromax (Azithromycin) 250 Mg Tablet 250 Mg PO DAILY Take 2 tablets today then 1 tablet dauly until gone Reported Aspirin 81 Mg Tab.chew 1 Tab PO DAILY Novolog Flexpen (Insulin Aspart) 100 Unit/1 Ml Insuln.pen 10 Unit SQ BIDACLD Novolog Flexpen (Insulin Aspart) 100 Unit/1 Ml Insuln.pen 8 Unit SQ DAILYWBKFT Gabapentin 800 Mg Tablet 800 Mg PO HS Gabapentin 400 Mg Capsule 400 Mg PO TID Levemir (Insulin Detemir) 100 Unit/1 Ml Vial 40 Unit SQ HS Glimepiride 4 Mg Tablet 5 Mg PO BID Metformin Hcl 850 Mg Tablet 1 Tab PO BID Cymbalta (Duloxetine Hcl) 60 Mg Capsule.dr 1 Cap PO BID Wellbutrin Sr (Bupropion Hcl) 150 Mg Tablet.er 150 Mg PO DAILY Vitals/I & O Vital Sign - Last 24 Hours 12/10/16 12/10/16 12/10/16 12/10/16 18:48 19:50 20:12 20:14 Temp 98.8 98.8 Pulse 87 90 98 84 Resp 17 30 20 B/P 121/62 139/73 145/66 137/65 Pulse Ox 98 97 97 O2 Delivery Room Air Room Air Room Air 12/10/16 12/10/16 12/10/16 12/10/16 20:19 20:24 21:52 23:00 Temp 98.9 97.9 98.9 97.9 Pulse 82 84 81 75 Resp 17 16 18 18 B/P 124/56 118/59 139/42 114/68 Pulse Ox 97 97 99 96 O2 Delivery Room Air Room Air Room Air Room Air 12/11/16 12/11/16 12/11/16 03:00 07:15 08:00 Temp 97.7 97.5 97.7 97.5 Pulse 71 77 Resp B/P 112/70 100/64 Pulse Ox 98 95 O2 Delivery Room Air Room Air Room Air Intake and Output 12/10/16 12/10/16 12/11/16 15:00 23:00 07:00 Intake Total 950 ml Balance 950 ml MATTHEW LUCERO III DO Dec 11, 2016 12:04
--- NOTE | 2016-12-11 14:17 | RAD ---
APPROVED REPORT Test Type: Pharmacological Stress Nurse/Tech: Virgie Serna RN Test Indications: chest pain Cardiac History: see ehr Medications: see ehr Medical History: see ehr Resting ECG: SR Resting Heart Rate: 83 bpm Resting Blood Pressure: 109/64mmHg Pretest Chest Pain: None Nurse/Tech Notes Lungs CTA, S1, S2 Consent: The procedure was explained to the patient in lay terms. Informed consent was witnessed. Sathya eout was entered into [employer]. History and Stress Test performed by Joseline CardenasNKeith Pharm. Details Pharmacologic stress testing was performed using 0.4mg per 5ml of regadenoson given intravenously ove r 7-10 seconds. Stress Symptoms No chest pain or symptoms. POST EXERCISE Reason for Termination: Infusion complete Target HR: 116 Max Blood Pressure: 146/54mmHg Blood Pressure response to exercise: Normal blood pressure response during stress. Chest Pain: No. Arrhythmia: No. ST Change: No. INTERPRETATION Stress EKG Conclusion: No acute changes were noted. Imaging Protocol IMAGE PROTOCOL: Stress Tc-99m/rest Tc-99m 2 days Rest: Stress: Viability: Radiopharm.Tc99m Sestamibi Dose38.2mCi Duration 12min. Img Date 12/11/2016 Inj-Img [id number]. Stress Admin Site: IV - Left AntecubitalAdministrator: LEANDRA Lazo STRESS DATA End Diast. Vol.77.0mlAv. Heart Rate82.0bpm End Syst. Vol.20.0mlCO Index BSA0.0L/min Myocardial Oxsr135.0gEject. Tvgebubf43.0% Stress Rates Pk. Fill Rate3.54EDV/secLVtime Pk. Fill 187.06msec Pk. Empty Rate4.77ESV/secLVtime Pk. Jrfub993.34msec 11/02 Pk. Fill1.04EDV/sec Stress Scores Regional WT0.00Summed WT0.00 Regional WM0.00Summed WM0.00 LV Perfusion Normal myocardial perfusion at stress. Wall Motion Normal wall motion. EF > 70% LV Perf. Quant 17 Seg. SSS1.00 Stress Defect Extent (% LAD)0.00Rest Defect Extent (% LAD)Rev. Defect Extent (% LAD)0.00 Stress Defect Extent (% LCX) 8.80Rest Defect Extent (% LCX)Rev. Defect Extent (% LCX)0.00 Stress Defect Extent (% RCA)0.00Rest Defect Extent (% RCA)Rev. Defect Extent (% RCA)0.00 Stress Defect Extent (% BONY)2.00Rest Defect Extent (% BONY)Rev. Defect Extent (% BONY)0.00 Other Information Quality:Average Risk Assessment: Low Risk Conclusion 1. Negative EKG response to vasodilator stress 2. Normal perfusion at stress. 3. Normal EF at > 70% 4. Low risk study
[2016-12-11 14:34] VITALS: BP 108/51
--- NOTE | 2016-12-11 18:45 | EKG ---
[facility] [address] [place] [address] Test Date: 2016-12-10 Test Time: 19:09:38 Pat Name: COREEN MA Department: Room: [facility] Gender: F Brake Reliner: : 1975 Requested By: MARII CASON Order Number: [id number] Reading MD: Nancy Goldman Measurements Intervals Sutter Rate: 79 P: 38 PA: 164 QRS: -21 QRSD: 80 T: 31 QT: 348 QTc: 400 Interpretive Statements SINUS RHYTHM LEFTWARD AXIS NO SPECIFIC ECG ABNORMALITIES RI6.01 No previous ECG available for comparison Electronically Signed On 12-12-2016 18:59:25 DIETARY AIDE COOK by Nancy Goldman
[2016-12-11] MEDS ORDERED: INSULIN DETEMIR 300 UNITS/3 ML INSULN.PEN. SQ SCH (21:00)
[2016-12-11] MEDS ORDERED: GABAPENTIN 400 MG CAPSULE. PO SCH (21:00)
--- NOTE | 2016-12-12 03:46 | HP ---
ADMIT DATE: 12/10/2016 CHIEF COMPLAINT: Chest pain. HISTORY OF PRESENT ILLNESS: A 41-year-old female patient with several comorbid conditions such as COPD, asthma, hypertension, hyperlipidemia, type 2 diabetes, presented to the ER with complaints of chest pain, started at 06:30 this evening, noticed while she was working in the kitchen and described it as stabbing in nature, 9/10 at the time of arrival, now down to 6/10 with nitro and aspirin. She denies any prior history of heart attacks. Has family history of coronary artery disease; however, she actively smokes and has several risk factors. PAST MEDICAL HISTORY: Please see my electronic H and P. REVIEW OF SYSTEMS: Please see my electronic H and P. PHYSICAL EXAMINATION: Please see my electronic H and P. LABORATORY FINDINGS: WBC 14.8, hemoglobin is 14.2, MCV is 92, platelets 342. Chemistry: Sodium is 139, potassium 3.5, chloride is 101, carbon dioxide 28, anion gap 10, BUN is 9, creatinine 0.7. Troponin is less than 0.017. IMAGING STUDIES: Chest x-ray: Preliminary report, no acute process seen. EKG: Normal sinus rhythm, no acute ST-T wave changes seen, not able to verify. ASSESSMENT: 1. Chest pain, differentials PE, ACS, musculoskeletal and gastritis. 2. Type 2 diabetes mellitus. 3. Hypertension. 4. Hyperlipidemia. 5. Depression. 6. History of COPD. 7. Questionable history of CVA in the past. 8. Chronic pain. PLAN: 1. Three sets of troponins, telemetry, Cardiology consultation, possible stress test in a.m. 2. N.p.o. from midnight. 3. Home medications list to be verified with the pharmacy and resume if no contraindications seen. 4. P.r.n. nitro for chest pain. 5. P.r.n. hydralazine for blood pressure with systolic more than 170. 6. SSI PRN 7. PRN DUONEBS MALCOLM DIAZ MD DR: ASUNCION/obdulia JOB#: [id number] / [id number] KASSANDRA
== END 2016-12-11 15:55 | disposition home or self-care (01) ==
LOC: ER 18:48 → INTOOBSV 19:46 → 5 NORTH 19:46
PROVIDERS: ADMIT Internal Medicine; ATTEND Internal Medicine
DX: R07.9 Chest pain, unspecified (principal); E11.40 Type 2 diabetes mellitus with diabetic neuropathy, unspecified; J44.9 Chronic obstructive pulmonary disease, unspecified; J45.909 Unspecified asthma, uncomplicated; E78.5 Hyperlipidemia, unspecified; I10 Essential (primary) hypertension; M19.90 Unspecified osteoarthritis, unspecified site; E78.00 Pure hypercholesterolemia, unspecified; F31.9 Bipolar disorder, unspecified; G89.29 Other chronic pain; F17.210 Nicotine dependence, cigarettes, uncomplicated; Z86.73 Personal history of transient ischemic attack (TIA), and cerebral infarction without residual deficits
CPT/HCPCS: 36415; 71010; 78452; 80048; 80061; 82947; 84484; 85027; 93005; 93017; 94250; 96372; 99285; A9500; G0378; J1815; J2785; 96374; 96375; G0379

== ENCOUNTER 2017-01-01 17:40 | Emergency (ER) | payer MEDICAID ==
[~2017-01-01] VITALS: Ht 157.5 cm; Wt 95.3 kg
[~2017-01-01 17:40] MED LIST changes: +ASPI81TA2 PO; +BUPR150T8 PO; +DULO60CA6 PO; +GABA-587 PO; +GABA800T2 PO; +GLIM4TAB2 PO; +INSU100I17 SQ; +INSU100V13 SQ; +METF850T2 PO
[2017-01-01 17:49] VITALS: BP 158/94
--- NOTE | 2017-01-01 18:58 | PHYS DOC ---
Past Medical History Past Medical History: Asthma, Bipolar, Bronchitis, COPD, CVA, Depression, Diabetes-Type II, High Cholesterol, Hypertension, Seizure, Stroke, Other Additional Past Medical Histor: DJD, NEUROPATHY, CHRONIC PAIN Past Surgical History: Appendectomy, Cholecystectomy, Tonsillectomy, Tubal ligation, Other Additional Past Surgical Histo: Tubes,X3 hernia, ear tubes Smokin Pack Per Day Alcohol Use: None Drug Use: None Adult General Chief Complaint Chief Complaint: FOOT INJURY PAIN HPI HPI Patient is a 41 year old female who presents with right foot pain after injury last night. She states that she twisted her foot after tripping on a chair in the dark. She's been able to the toilet with a limp. She denies any other injuries. Her PCP is LASHANDA Waggoner. Review of Systems Review of Systems Constitutional: Denies fever or chills. [] Musculoskeletal: Denies back pain or joint pain. Reports right foot pain. Integument: Denies rash or skin lesions. [] Neurologic: Denies headache, focal weakness or sensory changes. [] Allergies Allergies Allergies Coded Allergies Type Severity Reaction Last Updated Verified Penicillins Allergy Intermediate 04/12/15 Yes ibuprofen Allergy Intermediate 04/12/15 Yes ketorolac Allergy Intermediate 04/12/15 Yes prednisolone Allergy Intermediate 04/12/15 Yes red dye Allergy Intermediate 04/12/15 Yes tramadol Allergy Intermediate 04/12/15 Yes Physical Exam Physical Exam Constitutional: Well developed, well nourished, no acute distress, non-toxic appearance. [] HENT: Normocephalic, atraumatic, oropharynx moist. [] Eyes: PERRLA, EOMI, conjunctiva normal, no discharge. [] Skin: Warm, dry, no erythema, no rash. There is no laceration, abrasion, ecchymosis, or other external sign of injury. Extremities: Diffuse right foot tenderness over the metatarsals, ROM intact, no edema. 2+ radial and ulnar pulses. Less than 2 second capillary refill in the toes. Light touch sensation intact in the toes. The patient is ambulatory with a limp without assistance. Neurologic: Alert and oriented X 3, normal motor function, normal sensory function, no focal deficits noted. [] Psychologic: Affect normal, judgement normal, mood normal. [] Current Patient Data Vital Signs Vital Signs Date Time Temp Pulse Resp B/P Pulse Ox O2 Delivery O2 Flow Rate FiO2 01/01/17 17:49 98.1 100 18 97 Room Air 98.1 EKG EKG [] Radiology/Procedures Radiology/Procedures Three-view x-ray of the right foot reviewed and interpreted by myself with Dr. Barrios. There are no acute fractures or dislocations. Course & Med Decision Making Course & Med Decision Making Pertinent Labs and Imaging studies reviewed. (See chart for details) The patient was provided with a new Edi wrap. She is instructed to use her postop shoe as needed for comfort instability with walking. She is discharged with prescription for #20 Milton 5/325. She is given contact information for orthopedics for follow-up. Return precautions were discussed. She verbalizes understanding and agrees with plan. Dragon Disclaimer Dragon Disclaimer This electronic medical record was generated, in whole or in part, using a voice recognition dictation system. Departure Departure Impression: Primary Impression: Foot sprain Disposition: HOME, SELF-CARE Condition: STABLE Referrals: [facility] (PCP) Additional Instructions: Downtime discharge instructions were provided for the patient. Handwritten prescription for Milton 5/325 #20. Problem Qualifiers Primary Impression: Foot sprain Encounter type: initial encounter Laterality: right Qualified Code: S93.601A - Unspecified sprain of right foot, initial encounter ERUM MCGEE Jan 01, 2017 18:58
--- NOTE | 2017-01-02 10:06 | RAD ---
Examination: 3 views of the right foot History: History of injury to the right foot Comparison: None available Findings: The alignment of the tarsal joints, tarsometatarsal joints, interphalangeal joints grossly appears unremarkable. There is no acute fracture or dislocation identified. Impression: No acute osseous findings.
== END 2017-01-01 21:17 | disposition home or self-care (01) ==
LOC: ER 17:40
DX: S93.601A Unspecified sprain of right foot, initial encounter (principal); J45.909 Unspecified asthma, uncomplicated; J44.9 Chronic obstructive pulmonary disease, unspecified; E11.40 Type 2 diabetes mellitus with diabetic neuropathy, unspecified; G89.29 Other chronic pain; F17.200 Nicotine dependence, unspecified, uncomplicated; I10 Essential (primary) hypertension; M19.90 Unspecified osteoarthritis, unspecified site; E78.00 Pure hypercholesterolemia, unspecified; Z86.73 Personal history of transient ischemic attack (TIA), and cerebral infarction without residual deficits; Z88.0 Allergy status to penicillin; Z88.6 Allergy status to analgesic agent; Z88.8 Allergy status to other drugs, medicaments and biological substances; Z91.041 Radiographic dye allergy status; W22.8XXA Striking against or struck by other objects, initial encounter; Y92.89 Other specified places as the place of occurrence of the external cause; Y99.2 Volunteer activity; Y99.8 Other external cause status
CPT/HCPCS: 73630; 99284

== ENCOUNTER 2017-01-20 15:32 | Emergency (ER) | payer MEDICAID ==
[~2017-01-20] VITALS: Ht 157.5 cm; Wt 95.3 kg
[2017-01-20 15:35] VITALS: BP 130/85
--- NOTE | 2017-01-20 16:02 | PHYS DOC ---
Past Medical History Past Medical History: Asthma, Bipolar, COPD, Diabetes-Type II, High Cholesterol , Heart Disease Additional Past Medical Histor: degenerative joint disease, chronic pain Past Surgical History: Appendectomy, Cholecystectomy, Tonsillectomy, Tubal ligation, Other Additional Past Surgical Histo: leg surgery, 3 hernia surgeries Additional Information: 1.5 PPD Alcohol Use: None Drug Use: None Adult General Chief Complaint Chief Complaint: LOWEREXTREMITY INJURY HPI HPI Patient is a 41 year old female who presents with right lower leg pain. The leg was shut in the door of her van when the wind blew the door shut. She is ambulatory on the leg. She is seen here frequently for minor injuries such as this. Her PCP is LASHANDA Waggoner. Review of Systems Review of Systems Constitutional: Denies fever or chills. [] Musculoskeletal: Denies back pain or joint pain. Reports right lower leg pain. Integument: Denies rash or skin lesions. Reports mild ecchymosis of the right lower leg. Neurologic: Denies focal weakness or sensory changes. [] Allergies Allergies Allergies Coded Allergies Type Severity Reaction Last Updated Verified Penicillins Allergy Intermediate 04/12/15 Yes ibuprofen Allergy Intermediate 04/12/15 Yes ketorolac Allergy Intermediate 04/12/15 Yes prednisolone Allergy Intermediate 04/12/15 Yes red dye Allergy Intermediate 04/12/15 Yes tramadol Allergy Intermediate 04/12/15 Yes Physical Exam Physical Exam Constitutional: Well developed, well nourished, no acute distress, non-toxic appearance. [] HENT: Normocephalic, atraumatic, oropharynx moist. [] Eyes: PERRLA, EOMI, conjunctiva normal, no discharge. [] Skin: Warm, dry, no erythema, no rash. There is mild ecchymosis of the mid right lower leg without laceration or abrasion. Extremities: Right mid-calf tenderness, ROM intact, no edema. 2+ pedal pulses. Less than 2 second capillary refill. Light touch sensation intact in the toes. She ambulates with a limp favoring the right leg. Neurologic: Alert and oriented X 3, normal motor function, normal sensory function, no focal deficits noted. [] Psychologic: Affect normal, judgement normal, mood normal. [] Current Patient Data Vital Signs Vital Signs Date Time Temp Pulse Resp B/P Pulse Ox O2 Delivery O2 Flow Rate FiO2 01/20/17 15:35 98.0 92 20 97 Room Air 98.0 Lab Values Laboratory Tests Test 01/20/17 15:00 POC Urine HCG, Qualitative Hcg negative (Negative) EKG EKG [] Radiology/Procedures Radiology/Procedures REASON: van door shut on leg PROCEDURE: TIBIA FIBULA RIGHT Right tibia and fibula, 2 views, 01/20/2017: History: Injury No fracture or bony abnormality is detected. A couple of small phleboliths are noted. IMPRESSION: No acute bony abnormality is detected. Course & Med Decision Making Course & Med Decision Making Pertinent Labs and Imaging studies reviewed. (See chart for details) Patient presents with right lower leg pain after the leg was shut in the door of her van. She is ambulatory with a limp. On exam, there is tenderness of the mid-calf, but she is neurovascularly intact. There are no acute fractures or dislocations on xray. She is discharged home with an Edi wrap. She is instructed to take Tylenol for pain, rest, apply ice, wear the Edi wrap, and elevate the leg. She is given contact information for orthopedics for follow up. Return precautions were discussed. She verbalizes understanding and agrees with plan. Dragon Disclaimer Dragon Disclaimer This electronic medical record was generated, in whole or in part, using a voice recognition dictation system. Departure Departure Impression: Primary Impression: Contusion of lower leg, right Disposition: 01 HOME, SELF-CARE Condition: STABLE Referrals: [facility] (PCP) EDWIN MUSTAFA MD Patient Instructions: Contusion, [id number] Additional Instructions: Your xray did not show any broken bones or dislocations. Please wear the provided Edi wrap to help decrease bruising and swelling. Apply ice to your leg to decrease bruising and swelling. Do not apply ice directly to the skin. Elevate the leg to decrease swelling. You may take Tylenol to help with your pain. Use according to package instructions. Please follow up with the orthopedic doctor listed below or the orthopedic doctor of your choice if your pain continues. Return to the emergency department if you have any new or concerning symptoms. ERUM MCGEE Jan 20, 2017 16:02
--- NOTE | 2017-01-20 16:19 | RAD ---
Right tibia and fibula, 2 views, 01/20/2017: History: Injury No fracture or bony abnormality is detected. A couple of small phleboliths are noted. IMPRESSION: No acute bony abnormality is detected.
== END 2017-01-20 16:33 | disposition home or self-care (01) ==
LOC: ER 15:32
DX: S80.11XA Contusion of right lower leg, initial encounter (principal); F31.9 Bipolar disorder, unspecified; M19.90 Unspecified osteoarthritis, unspecified site; I51.9 Heart disease, unspecified; E11.9 Type 2 diabetes mellitus without complications; E78.00 Pure hypercholesterolemia, unspecified; G89.29 Other chronic pain; J44.9 Chronic obstructive pulmonary disease, unspecified; J45.909 Unspecified asthma, uncomplicated; Z88.0 Allergy status to penicillin; Z90.49 Acquired absence of other specified parts of digestive tract; Z98.51 Tubal ligation status; F17.200 Nicotine dependence, unspecified, uncomplicated; Z88.6 Allergy status to analgesic agent; Z88.8 Allergy status to other drugs, medicaments and biological substances; W23.0XXA Caught, crushed, jammed, or pinched between moving objects, initial encounter; Y93.89 Activity, other specified; Y92.89 Other specified places as the place of occurrence of the external cause; Y99.8 Other external cause status
CPT/HCPCS: 73590; 81025; 99284

== ENCOUNTER 2017-02-15 16:35 | Emergency (ER) | payer MEDICAID ==
[~2017-02-15] VITALS: Ht 157.5 cm; Wt 97.5 kg
[2017-02-15 16:56] VITALS: BP 151/68
--- NOTE | 2017-02-15 17:16 | RAD ---
Indication traumatic injury. Pain. Internally and externally rotated views of the left shoulder were obtained as well as a Y view. No acute or significant bony finding is seen. There is some very minimal degenerative change at the AC joint
[2017-02-15] MEDS ORDERED: METH-37 PO (17:47)
--- NOTE | 2017-02-15 17:47 | PHYS DOC ---
Past Medical History Past Medical History: Asthma, Bipolar, COPD, Diabetes-Type II, High Cholesterol , Heart Disease Additional Past Medical Histor: degenerative joint disease, chronic pain Past Surgical History: Appendectomy, Cholecystectomy, Tonsillectomy, Tubal ligation, Other Additional Past Surgical Histo: leg surgery, 3 hernia surgeries Smoking: Greater than 1 pack/day Alcohol Use: None Drug Use: None Adult General Chief Complaint Chief Complaint: SHOULDER INJURY HPI HPI Patient is a 41 year old female who presents with left shoulder pain that began at 1430 today. The patient was walking with her fianc when his knee went out. The patient attempted to push him against the wall to keep him from falling. She used her shoulder to hold him up. She reports intermittent numbness in the left hand. She denies any other injuries. Her PCP is LASHANDA Waggoner. Review of Systems Review of Systems Constitutional: Denies fever or chills. [] Eyes: Denies change in visual acuity, redness, or eye pain. [] HENT: Denies ear pain, nasal congestion or sore throat. [] Respiratory: Denies cough or shortness of breath. [] Cardiovascular: Denies chest pain, palpitations or edema. [] GI: Denies abdominal pain, nausea, vomiting, bloody stools or diarrhea. [] : Denies dysuria, hematuria or urinary frequency. [] Musculoskeletal: Denies back pain. Reports left shoulder pain. Integument: Denies rash or skin lesions. [] Neurologic: Denies headache, focal weakness. Reports intermittent numbness in the left hand. Endocrine: Denies polyuria or polydipsia. [] Psych: Denies anxiety or depression. [] All systems reviewed and negative unless otherwise stated in the HPI. Allergies Allergies Allergies Coded Allergies Type Severity Reaction Last Updated Verified Penicillins Allergy Intermediate 04/12/15 Yes ibuprofen Allergy Intermediate 04/12/15 Yes ketorolac Allergy Intermediate 04/12/15 Yes prednisolone Allergy Intermediate 04/12/15 Yes red dye Allergy Intermediate 04/12/15 Yes tramadol Allergy Intermediate 04/12/15 Yes Physical Exam Physical Exam Constitutional: Well developed, well nourished, no acute distress, non-toxic appearance. [] HENT: Normocephalic, atraumatic, oropharynx moist. [] Eyes: PERRLA, EOMI, conjunctiva normal, no discharge. [] Neck: Normal range of motion, no tenderness, supple, no stridor. [] Cardiovascular: Heart rate regular rhythm, no murmur. [] Lungs & Thorax: Bilateral breath sounds clear to auscultation without wheezes, rales, or rhonchi. [] Skin: Warm, dry, no erythema, no rash. [] Back: No midline tenderness, no CVA tenderness. [] Extremities: Diffuse left shoulder tenderness, abduction decreased to 90 in the left shoulder, no edema. Distal pulses equal bilaterally. Less than 2 second capillary refill in the fingers. Light touch sensation intact distally. Equal call center trainer strength bilaterally. There is full range of motion without any tenderness in the elbow, wrist, and hand. Neurologic: Alert and oriented X 3, normal motor function, normal sensory function, no focal deficits noted. [] Psychologic: Affect normal, judgement normal, mood normal. [] Current Patient Data Vital Signs Vital Signs Date Time Temp Pulse Resp B/P Pulse Ox O2 Delivery O2 Flow Rate FiO2 02/15/17 16:56 98.4 76 20 99 Room Air 98.4 EKG EKG [] Radiology/Procedures Radiology/Procedures REASON: pain PROCEDURE: SHOULDER 2+V LEFT Indication traumatic injury. Pain. Internally and externally rotated views of the left shoulder were obtained as well as a Y view. No acute or significant bony finding is seen. There is some very minimal degenerative change at the AC joint Course & Med Decision Making Course & Med Decision Making Pertinent Labs and Imaging studies reviewed. (See chart for details) [] Dragon Disclaimer Dragon Disclaimer This electronic medical record was generated, in whole or in part, using a voice recognition dictation system. Departure Departure Impression: Primary Impression: Shoulder pain, left Disposition: 01 HOME, SELF-CARE Condition: STABLE Referrals: [facility] (PCP) ANDREA HURST II, MD Patient Instructions: Shoulder Pain, [id number] Additional Instructions: There were no broken bones or dislocations seen on your x-ray. Please take the prescribed muscle relaxer to help with your pain. Do not drive or operate heavy machinery while taking this medication. Please follow-up with the orthopedic doctor listed below if your pain continues. Return to the emergency department if you have any new or concerning symptoms. Scripts Methocarbamol (Robaxin)500 Mg [id number] Mg PO QID #20 TAB Prov:ERUM MCGEE 02/15/17 Problem Qualifiers Primary Impression: Shoulder pain, left Chronicity: acute Qualified Code: M25.512 - Pain in left shoulder ERUM MCGEE Feb 15, 2017 17:47
== END 2017-02-15 17:51 | disposition home or self-care (01) ==
LOC: ER 16:35
DX: M25.512 Pain in left shoulder (principal); R20.0 Anesthesia of skin; J44.9 Chronic obstructive pulmonary disease, unspecified; E78.00 Pure hypercholesterolemia, unspecified; E11.9 Type 2 diabetes mellitus without complications; G89.29 Other chronic pain; F31.9 Bipolar disorder, unspecified; Z86.79 Personal history of other diseases of the circulatory system; Z90.49 Acquired absence of other specified parts of digestive tract; Z98.51 Tubal ligation status; Z88.0 Allergy status to penicillin; Z88.6 Allergy status to analgesic agent; Z88.8 Allergy status to other drugs, medicaments and biological substances; Z91.041 Radiographic dye allergy status
CPT/HCPCS: 73030; 99284

== ENCOUNTER 2017-03-31 19:21 | Emergency (ER) | payer MEDICAID ==
[~2017-03-31] VITALS: Ht 157.5 cm; Wt 93.0 kg
[~2017-03-31 19:21] MED LIST changes: +METH-37 PO; -NYST1000 PO; +NYST100054 PO
[2017-03-31 20:07] LABS: BILIRUBIN,URINE NEGATIVE (NEG); GLUCOSE,URINE >=1000 mg/dL (NEG); NITRITE,URINE NEGATIVE (NEG); PROTEIN,URINE NEGATIVE (NEG-TRACE); UROBILINOGEN,URINE 0.2 mg/dL (0.2 mg/dL)
[2017-03-31 20:19] LABS: BACTERIA,URINE 0 /HPF (0-FEW); NEG OBC UR NEG; POS OBC UR POS; RBC,URINE 0 /HPF (0-2); SQUAMOUS EPITHELIAL CELL,UR MOD /LPF; WBC,URINE 0 /HPF (0-4)
--- NOTE | 2017-03-31 20:25 | PHYS DOC ---
Past Medical History Past Medical History: Asthma, Bipolar, COPD, Diabetes-Type II, High Cholesterol , Heart Disease, Seizure Additional Past Medical Histor: degenerative joint disease, chronic pain Past Surgical History: Appendectomy, Cholecystectomy, Tonsillectomy, Tubal ligation, Other Additional Past Surgical Histo: leg surgery, 3 hernia surgeries Alcohol Use: None Drug Use: None Adult General Chief Complaint Chief Complaint: PAIN ON URINATION [facility] HPI Patient is a 41 year old female presents emergency department stating 3:00 this morning she woke up and started having burning with urinary frequency and urgency. She denies any back pain or discomfort other than the very lower back pain. She denies any vaginal discharge. She states that she's had 7 episodes of diarrhea with no blood noted in the stool. She didn't states that they were loose stools. She's had 2 episodes of vomiting with the last time being at 7:00 tonight. She denies any fever, chills. Patient states that she has lower abdominal supra pubic pain. Review of Systems Review of Systems Constitutional: Denies fever or chills [] Eyes: Denies change in visual acuity, redness, or eye pain [] HENT: Denies nasal congestion or sore throat [] Respiratory: Denies cough or shortness of breath [] Cardiovascular: No additional information not addressed in HPI [] GI: supra abdominal pain, nausea, vomiting, and diarrhea [] : dysuria denies hematuria [] Musculoskeletal: Denies back pain or joint pain [] Integument: Denies rash or skin lesions [] Neurologic: Denies headache, focal weakness or sensory changes [] Endocrine: Denies polyuria or polydipsia [] Allergies Allergies Allergies Coded Allergies Type Severity Reaction Last Updated Verified Penicillins Allergy Intermediate 04/12/15 Yes ibuprofen Allergy Intermediate 04/12/15 Yes ketorolac Allergy Intermediate 04/12/15 Yes prednisolone Allergy Intermediate 04/12/15 Yes red dye Allergy Intermediate 04/12/15 Yes tramadol Allergy Intermediate 04/12/15 Yes Physical Exam Physical Exam Constitutional: Well developed, well nourished, no acute distress, non-toxic appearance. [] HENT: Normocephalic, atraumatic, bilateral external ears normal, oropharynx moist, no oral exudates, nose normal. [] Eyes: PERRLA, EOMI, conjunctiva normal, no discharge. [] Neck: Normal range of motion, no tenderness, supple, no stridor. [] Cardiovascular:Heart rate regular rhythm, no murmur [] Lungs & Thorax: Bilateral breath sounds clear to auscultation [] Abdomen: Bowel sounds hypoactive, soft, no tenderness, no masses, no pulsatile masses. No rebound tenderness noted patient did have tenderness in the suprapubic area. Negative for McBurney sign. Skin: Warm, dry, no erythema, no rash. [] Back: No tenderness, no CVA tenderness. [] Extremities: No tenderness, no cyanosis, no clubbing, ROM intact, no edema. [] Neurologic: Alert and oriented X 3, normal motor function, normal sensory function, no focal deficits noted. [] Psychologic: Affect normal, judgement normal, mood normal. [] Current Patient Data Vital Signs Vital Signs Date Time Temp Pulse Resp B/P (MAP) Pulse Ox O2 Delivery O2 Flow Rate FiO2 03/31/17 20:03 99.0 103 22 161/86 (111) 95 Room Air 99.0 Lab Values Laboratory Tests Test 03/31/17 19:29 03/31/17 20:30 Urine Collection Type Unknown Urine Color Yellow Urine Clarity Clear Urine pH 6.0 Urine Specific [place] >=1.030 Urine Protein Negative mg/dL (NEG-TRACE) Urine Glucose (UA) >=1000 mg/dL (NEG) Urine Ketones (Stick) Negative mg/dL (NEG) Urine Blood Negative (NEG) Urine Nitrite Negative (NEG) Urine Bilirubin Negative (NEG) Urine Urobilinogen Dipstick 0.2 mg/dL (0.2 mg/dL) Urine Leukocyte Esterase Negative (NEG) Urine RBC 0 /HPF (0-2) Urine WBC 0 /HPF (0-4) Urine Squamous Epithelial Cells Mod /LPF Urine Bacteria 0 /HPF (0-FEW) Urine Test Negative (NEG) White Blood Count 20.0 x10^3/uL (4.0-11.0) H Red Blood Count 5.01 x10^6/uL (3.50-5.40) Hemoglobin 15.6 g/dL (12.0-15.5) H Hematocrit 46.3 % (36.0-47.0) Mean Corpuscular Volume 92 fL (79-100) Mean Corpuscular Hemoglobin 31 pg (25-35) Mean Corpuscular Hemoglobin Concent 34 g/dL (31-37) Red Cell Distribution Width 13.1 % (11.5-14.5) Platelet Count 383 x10^3/uL (140-400) Neutrophils (%) (Auto) 81 % (31-73) H Lymphocytes (%) (Auto) 15 % (24-48) L Monocytes (%) (Auto) 3 % (0-9) Eosinophils (%) (Auto) 0 % (0-3) Basophils (%) (Auto) 1 % (0-3) Neutrophils # (Auto) 16.1 x10^3uL (1.8-7.7) H Lymphocytes # (Auto) 3.0 x10^3/uL (1.0-4.8) Monocytes # (Auto) 0.7 x10^3/uL (0.0-1.1) Eosinophils # (Auto) 0.1 x10^3/uL (0.0-0.7) Basophils # (Auto) 0.1 x10^3/uL (0.0-0.2) Segmented Neutrophils % 78 % (35-66) H Band Neutrophils % 2 % (0-9) Lymphocytes % 16 % (24-48) L Monocytes % 4 % (0-10) Toxic Granulation Slight Platelet Estimate Adequate (ADEQUATE) Sodium Level 137 mmol/L (136-145) Potassium Level 3.7 mmol/L (3.5-5.1) Chloride Level 101 mmol/L (98-107) Carbon Dioxide Level 27 mmol/L (21-32) Anion Gap 9 (6-14) Blood Urea Nitrogen 9 mg/dL (7-20) Creatinine 0.8 mg/dL (0.6-1.0) Estimated GFR (Cockcroft-Gault) 79.0 BUN/Creatinine Ratio 11 (6-20) Glucose Level 255 mg/dL (70-99) H Calcium Level 9.2 mg/dL (8.5-10.1) Total Bilirubin 0.3 mg/dL (0.2-1.0) Aspartate Amino Transferase (AST) 25 U/L (15-37) Alanine Aminotransferase (ALT) 53 U/L (14-59) Alkaline Phosphatase 103 U/L (46-116) Total Protein 7.4 g/dL (6.4-8.2) Albumin 3.6 g/dL (3.4-5.0) Albumin/Globulin Ratio 0.9 (1.0-1.7) L Laboratory Tests 03/31/17 20:30 Laboratory Tests 03/31/17 20:30 EKG EKG [] Radiology/Procedures Radiology/Procedures [] Course & Med Decision Making Course & Med Decision Making Pertinent Labs and Imaging studies reviewed. (See chart for details) Patient does have an elevation in her white count. She denies any other abdominal pain or discomfort except for suprapubic area. Patient's urine was negative although she will be provided with Cipro as she has diarrhea and dysuria. We'll recommend plenty fluids such as cranberry juice water. Avoid cranberry juice cocktail, carbonate beverages, citrus fruits and alcohol. She' ll also be provided with Zofran for nausea and vomiting. She'll be discharged home in stable condition. Signs symptoms to return back to emergency department as been provided. [] Dragon Disclaimer Dragon Disclaimer This electronic medical record was generated, in whole or in part, using a voice recognition dictation system. Departure Departure Impression: Primary Impression: Dysuria Additional Impressions: Diarrhea Vomiting Disposition: HOME, SELF-CARE Condition: STABLE Referrals: [facility] (PCP) Patient Instructions: Diarrhea, [id number], Dysuria-Brief, Nausea and Vomiting, [id number] Additional Instructions: Urine was negative for urinary tract infection however we are placing on antibiotics for dysuria. He'll also have a history of diarrhea the antibiotic to place on will also help with diarrhea as well. He do have a slightly elevated white count. Please follow-up with your primary care physician in the next 3-5 days. Clear liquid diet for the next 24 hours. Drink plenty of fluids such as water and cranberry juice. Avoid cranberry juice cocktail, carbonate beverages, citrus fruits and alcohol disease considered irritants to the bladder. Medication as prescribed. Tylenol for pain and discomfort. Follow-up to primary care physician mentioned above 3-5 days. Return back to emergency prior signs symptoms of become worse. Scripts Ondansetron (ZOFRAN ODT) 4 Mg Tab.rapdis 1 TAB SL Q8HRS, #10 TAB Prov: AMEE BOOGIE APRN 03/31/17 Ciprofloxacin Hcl (CIPRO) 500 Mg Tablet 1 TAB PO BID, #14 TAB Prov: AMEE BOOGIE APRN 03/31/17 Problem Qualifiers AMEE BOOGIE APRN Mar 31, 2017 20:25
[2017-03-31 20:37] LABS: BASO # 0.1 x10^3/uL (0.0-0.2); BASO % 1 % (0-3); EOS % 0 % (0-3); HEMATOCRIT 46.3 % (36.0-47.0); HEMOGLOBIN 15.6 g/dL (12.0-15.5); LYMPH % 15 % (24-48); MEAN CORPUSCULAR HEMOGLOBIN 31 pg (25-35); MEAN CORPUSCULAR HGB CONC 34 g/dL (31-37); MEAN CORPUSCULAR VOLUME 92 fL (79-100); MONO % 3 % (0-9); NEUT % 81 % (31-73); PLATELET COUNT 383 x10^3/uL (140-400); RED BLOOD COUNT 5.01 x10^6/uL (3.50-5.40); RED CELL DISTRIBUTION WIDTH 13.1 % (11.5-14.5)
[2017-03-31 20:53] VITALS: BP 145/85
[2017-03-31 20:58] LABS: CALCIUM 9.2 mg/dL (8.5-10.1); CREATININE 0.8 mg/dL (0.6-1.0); POTASSIUM 3.7 mmol/L (3.5-5.1)
[2017-03-31 21:03] LABS: ALBUMIN 3.6 g/dL (3.4-5.0); ALBUMIN/GLOBULIN RATIO 0.9 (1.0-1.7); TOTAL BILIRUBIN 0.3 mg/dL (0.2-1.0); TOTAL PROTEIN 7.4 g/dL (6.4-8.2)
[2017-03-31 21:09] LABS: PLT ESTIMATE ADEQUATE (ADEQUATE); TOXIC GRANULATION SLIGHT
[2017-03-31] MEDS ORDERED: ONDA4TAB10 SL (21:21)
[2017-03-31] MEDS ORDERED: CIPR500T94 PO (21:21)
== END 2017-03-31 21:28 | disposition home or self-care (01) ==
LOC: ER 19:21
DX: R30.0 Dysuria (principal); R19.7 Diarrhea, unspecified; R11.2 Nausea with vomiting, unspecified; M54.5 Low back pain; R10.30 Lower abdominal pain, unspecified; F31.9 Bipolar disorder, unspecified; J44.9 Chronic obstructive pulmonary disease, unspecified; E11.9 Type 2 diabetes mellitus without complications; E78.00 Pure hypercholesterolemia, unspecified; G89.29 Other chronic pain; Z90.49 Acquired absence of other specified parts of digestive tract; Z98.51 Tubal ligation status; Z88.0 Allergy status to penicillin; Z88.6 Allergy status to analgesic agent; Z88.5 Allergy status to narcotic agent; Z91.041 Radiographic dye allergy status; Z88.8 Allergy status to other drugs, medicaments and biological substances
CPT/HCPCS: 36415; 80053; 81001; 81025; 85007; 85027; 99284

== ENCOUNTER 2017-05-04 18:03 | Emergency (ER) | payer SELFPAY ==
[~2017-05-04] VITALS: Ht 157.5 cm; Wt 93.0 kg
[~2017-05-04 18:03] MED LIST changes: +ASPI-630 PO; -ASPI81TA2 PO; +CIPR500T94 PO; +ONDA4TAB10 SL
[2017-05-04 18:12] VITALS: BP 127/60
--- NOTE | 2017-05-04 18:54 | PHYS DOC ---
Past Medical History Past Medical History: Asthma, Bipolar, COPD, Diabetes-Type II, High Cholesterol , Heart Disease, Seizure Additional Past Medical Histor: degenerative joint disease, chronic pain Past Surgical History: Appendectomy, Cholecystectomy, Tonsillectomy, Tubal ligation, Other Additional Past Surgical Histo: leg surgery, 3 hernia surgeries Alcohol Use: None Drug Use: None Adult General Chief Complaint Chief Complaint: FOOT INJURY PAIN HPI HPI Patient is a 41 year old female with history of high cholesterol, COPD, currently a smoker, diabetes type 2, who presents today with mild left lateral ankle and foot pain that began today while she was ambulating. Patient states she heard a snap sound from her little toe and rolled her ankle. Review of Systems Review of Systems Constitutional: Denies fever or chills [] Musculoskeletal: Left foot and ankle pain Integument: Denies rash or skin lesions [] Neurologic: Denies headache, focal weakness or sensory changes [] Endocrine: Denies polyuria or polydipsia [] Allergies Allergies Allergies Coded Allergies Type Severity Reaction Last Updated Verified Penicillins Allergy Intermediate 04/12/15 Yes ibuprofen Allergy Intermediate 04/12/15 Yes ketorolac Allergy Intermediate 04/12/15 Yes prednisolone Allergy Intermediate 04/12/15 Yes red dye Allergy Intermediate 04/12/15 Yes tramadol Allergy Intermediate 04/12/15 Yes Physical Exam Physical Exam Constitutional: Well developed, well nourished, no acute distress, non-toxic appearance. [] Skin: Warm, dry, no erythema, no rash. [] Back: No tenderness, no CVA tenderness. [] Extremities: Left foot and left ankle with no obvious deformity. No tenderness on palpation of the left foot and left ankle. Full range of motion to the left foot and ankle. +2 left pedal pulse. Cap refill less than 2 seconds left toes. Sensation intact to the left lower extremity. Neurologic: Alert and oriented X 3, normal motor function, normal sensory function, no focal deficits noted. [] Psychologic: Affect normal, judgement normal, mood normal. [] Current Patient Data Vital Signs Vital Signs Date Time Temp Pulse Resp B/P (MAP) Pulse Ox O2 Delivery O2 Flow Rate FiO2 05/04/17 18:12 98.5 86 20 97 Room Air 98.5 EKG EKG [] Radiology/Procedures Radiology/Procedures [] Course & Med Decision Making Course & Med Decision Making Pertinent Labs and Imaging studies reviewed. (See chart for details) Patient is in the ED with left foot and left ankle pain after rolling her left ankle today. Left foot and left ankle x-rays interpreted by Dr. Koch were negative for any acute findings. Discharged with instructions to follow-up with orthopedic doctor. Provided Edi wrap in the ED. Ice elevation encouraged. Patient stated she'll follow-up with her own PCP. OTC pain relievers recommended. Dragon Disclaimer Dragon Disclaimer This electronic medical record was generated, in whole or in part, using a voice recognition dictation system. Departure Departure Impression: Primary Impression: Foot sprain Additional Impression: Left ankle sprain Disposition: HOME, SELF-CARE Condition: STABLE Referrals: [facility] (PCP) follow up with your doctor in one week Patient Instructions: Ankle Sprain, Foot Sprain-Brief Additional Instructions: You were seen for left foot and left ankle sprain. Wear the edi wrap as needed and tolerated. Ice and elevate the extremities. Follow-up with your own doctor in 1-2 weeks. Problem Qualifiers Primary Impression: Foot sprain Encounter type: initial encounter Laterality: left Qualified Codes: S93.602A - Unspecified sprain of left foot, initial encounter Additional Impression: Left ankle sprain Encounter type: initial encounter Involved ligament of ankle: unspecified ligament Qualified Codes: S93.402A - Sprain of unspecified ligament of left ankle, initial encounter RAFAEL CINTRON [employer]OWER TRANSFORMER REPAIRER May 04, 2017 18:54
--- NOTE | 2017-05-05 07:58 | RAD ---
Left ankle, 3 views, 05/04/2017: History: Fall, pain No fracture or or dislocation is identified. The soft tissues are unremarkable. IMPRESSION: No acute left ankle abnormality is detected. Left foot, 3 views, 05/04/2017: No fracture or dislocation is identified. There is a small inferior calcaneal spur. There is mild subcutaneous edema. IMPRESSION: No acute bony abnormality is detected.
== END 2017-05-04 19:09 | disposition home or self-care (01) ==
LOC: ER 18:03
DX: S93.402A Sprain of unspecified ligament of left ankle, initial encounter (principal); S93.602A Unspecified sprain of left foot, initial encounter; I51.9 Heart disease, unspecified; E11.9 Type 2 diabetes mellitus without complications; E78.00 Pure hypercholesterolemia, unspecified; J44.9 Chronic obstructive pulmonary disease, unspecified; G89.29 Other chronic pain; M19.90 Unspecified osteoarthritis, unspecified site; F31.9 Bipolar disorder, unspecified; Z90.49 Acquired absence of other specified parts of digestive tract; Z98.890 Other specified postprocedural states; Z98.51 Tubal ligation status; Z88.0 Allergy status to penicillin; Z88.8 Allergy status to other drugs, medicaments and biological substances; Z88.6 Allergy status to analgesic agent; Z91.041 Radiographic dye allergy status; X50.9XXA Other and unspecified overexertion or strenuous movements or postures, initial encounter; Y93.89 Activity, other specified; Y99.8 Other external cause status; Y92.89 Other specified places as the place of occurrence of the external cause
CPT/HCPCS: 73610; 73630; 99284

== ENCOUNTER 2017-06-09 10:04 | Emergency (ER) | payer MEDICAID, OTHER ==
[~2017-06-09] VITALS: Ht 157.5 cm; Wt 93.0 kg
[2017-06-09 10:48] VITALS: BP 155/79
--- NOTE | 2017-06-09 10:53 | PHYS DOC ---
Past Medical History Past Medical History: Asthma, Bipolar, COPD, Diabetes-Type II, High Cholesterol , Heart Disease, Seizure Additional Past Medical Histor: degenerative joint disease, chronic pain Past Surgical History: Appendectomy, Cholecystectomy, Tonsillectomy, Tubal ligation, Other Additional Past Surgical Histo: leg surgery, 3 hernia surgeries Alcohol Use: None Drug Use: None Adult General Chief Complaint Chief Complaint: URINARY FREQUENCY [facility] HPI Patient is a 41 year old female presents to the emergency department stating she had taken a shower this morning and was getting ready to give her his birthday present when he notice white vaginal discharge. Patient states she has had yeast infections in the past as she is a diabetic. Patient denies STD history or BV. She denies nausea, vomiting or diarrhea. She does state she has had urinary frequency. Review of Systems Review of Systems Constitutional: Denies fever or chills [] Eyes: Denies change in visual acuity, redness, or eye pain [] HENT: Denies nasal congestion or sore throat [] Respiratory: Denies cough or shortness of breath [] Cardiovascular: No additional information not addressed in HPI [] GI: Denies abdominal pain, nausea, vomiting, bloody stools or diarrhea [] :urinary frequency and white vaginal discharge Musculoskeletal: Denies back pain or joint pain [] Integument: Denies rash or skin lesions [] Neurologic: Denies headache, focal weakness or sensory changes [] Endocrine: Denies polyuria or polydipsia [] Allergies Allergies Allergies Coded Allergies Type Severity Reaction Last Updated Verified Penicillins Allergy Intermediate 04/12/15 Yes ibuprofen Allergy Intermediate 04/12/15 Yes ketorolac Allergy Intermediate 04/12/15 Yes prednisolone Allergy Intermediate 04/12/15 Yes red dye Allergy Intermediate 04/12/15 Yes tramadol Allergy Intermediate 04/12/15 Yes Physical Exam Physical Exam Constitutional: Well developed, well nourished, no acute distress, non-toxic appearance. [] HENT: Normocephalic, atraumatic, bilateral external ears normal, oropharynx moist, no oral exudates, nose normal. [] Eyes: PERRLA, EOMI, conjunctiva normal, no discharge. [] Neck: Normal range of motion, no tenderness, supple, no stridor. [] Cardiovascular:Heart rate regular rhythm, no murmur [] Lungs & Thorax: Bilateral breath sounds clear to auscultation [] Abdomen: Bowel sounds hypoactive, soft, no tenderness, no masses, no pulsatile masses. [] Skin: Warm, dry, no erythema, no rash. [] Back: No tenderness Extremities: No tenderness, no cyanosis, no clubbing, ROM intact, no edema. [] Neurologic: Alert and oriented X 3, normal motor function, normal sensory function, no focal deficits noted. [] Psychologic: Affect normal, judgement normal, mood normal. [] Current Patient Data Vital Signs Vital Signs Date Time Temp Pulse Resp B/P (MAP) Pulse Ox O2 Delivery O2 Flow Rate FiO2 06/09/17 10:48 98.8 101 20 96 Room Air 98.8 Lab Values Laboratory Tests Test 06/09/17 09:52 06/09/17 10:46 POC Urine HCG, Qualitative Hcg negative (Negative) Urine Collection Type Void Urine Color Yellow Urine Clarity Clear Urine pH 6.0 Urine Specific [place] >=1.030 Urine Protein Negative mg/dL (NEG-TRACE) Urine Glucose (UA) >=1000 mg/dL (NEG) Urine Ketones (Stick) Negative mg/dL (NEG) Urine Blood Negative (NEG) Urine Nitrite Negative (NEG) Urine Bilirubin Negative (NEG) Urine Urobilinogen Dipstick 0.2 mg/dL (0.2 mg/dL) Urine Leukocyte Esterase Negative (NEG) Urine RBC Occ /HPF (0-2) Urine WBC 1-4 /HPF (0-4) Urine Squamous Epithelial Cells Mod /LPF Urine Bacteria Moderate /HPF (0-FEW) Urine Yeast Present /HPF EKG EKG [] Radiology/Procedures Radiology/Procedures [] Course & Med Decision Making Course & Med Decision Making Pertinent Labs and Imaging studies reviewed. (See chart for details) Urinalysis was positive for bacteria. However there was no leukocyte Estrace or any blood. No nitrates noted. Patient will still be placed on antibiotics, Macrobid for urinary tract infection. She'll also be placed on Diflucan as there was used noted in the urine. Patient will be discharged home with signs and symptoms to return back to emergency department. Patient was instructed to follow-up the primary care physician in 5-7 days. Signs and symptoms as mentioned above to return back to emergency department with patient agreeing. All questions were answered patient's bedside. Patient was encouraged drink plenty of fluids such as water and cranberry juice avoid cranberry juice cocktail, carbonated beverages, citrus fruits and alcohol as these are considered irritants to the bladder. [] Dragon Disclaimer Dragon Disclaimer This electronic medical record was generated, in whole or in part, using a voice recognition dictation system. Departure Departure Impression: Primary Impression: Dysuria Additional Impression: Vaginal yeast infection Disposition: 01 HOME, SELF-CARE Condition: STABLE Referrals: [facility] (PCP) Patient Instructions: Candidal Vulvovaginitis, [id number], Dysuria-Brief Additional Instructions: Activity as tolerated. Medications as prescribed. Drink plenty of fluids such as water and cranberry juice. Avoid cranberry juice cocktail, carbonate beverages, citrus fruits and alcohol and caffeine as these are considered irritants to the bladder. Follow-up with your primary care physician in the next 7-10 days to make sure you cleared the urinary tract infection. Return back to emergency prior signs and symptoms of become worse. Scripts Fluconazole (DIFLUCAN) 150 Mg Tablet 1 TAB PO ONCE, #1 TAB 1 Refill May repeat in 1 week if symptoms are not better Prov: AMEE BOOGIE APRN 06/09/17 Nitrofurantoin Monohyd/M-Cryst (MACROBID 100 MG CAPSULE) 100 Mg Capsule 1 CAP PO BID, #14 CAP Prov: AMEE BOOGIE APRN 06/09/17 Problem Qualifiers AMEE BOOGIE APRN Jun 09, 2017 10:53
[2017-06-09 11:26] LABS: BILIRUBIN,URINE NEGATIVE (NEG); GLUCOSE,URINE >=1000 mg/dL (NEG); NITRITE,URINE NEGATIVE (NEG); PROTEIN,URINE NEGATIVE (NEG-TRACE); UROBILINOGEN,URINE 0.2 mg/dL (0.2 mg/dL)
[2017-06-09 11:55] LABS: BACTERIA,URINE MODERATE /HPF (0-FEW); RBC,URINE OCC /HPF (0-2); SQUAMOUS EPITHELIAL CELL,UR MOD /LPF
[2017-06-09 11:56] LABS: YEAST,URINE PRESENT /HPF
[2017-06-09] MEDS ORDERED: NITR100C62 PO (12:18)
[2017-06-09] MEDS ORDERED: FLUC150T PO (12:18)
== END 2017-06-09 12:20 | disposition home or self-care (01) ==
LOC: ER 10:04
DX: B37.3 Candidiasis of vulva and vagina (principal); J44.9 Chronic obstructive pulmonary disease, unspecified; F31.9 Bipolar disorder, unspecified; E11.9 Type 2 diabetes mellitus without complications; I51.9 Heart disease, unspecified; E78.00 Pure hypercholesterolemia, unspecified; G89.29 Other chronic pain; Z88.0 Allergy status to penicillin; Z90.49 Acquired absence of other specified parts of digestive tract; Z98.51 Tubal ligation status; Z88.6 Allergy status to analgesic agent; Z88.8 Allergy status to other drugs, medicaments and biological substances; Z88.5 Allergy status to narcotic agent; Z91.041 Radiographic dye allergy status
CPT/HCPCS: 81001; 81025; 87086; 99284

== ENCOUNTER 2018-07-26 11:45 | Emergency (ER) | payer OTHER ==
[~2018-07-26] VITALS: Ht 157.5 cm; Wt 90.7 kg
[~2018-07-26 11:45] MED LIST changes: +FLUC150T PO; -METF850T2 PO; +METF850T8 PO; +NITR100C62 PO
[2018-07-26 11:47] VITALS: BP 151/77
--- NOTE | 2018-07-26 12:42 | RAD ---
Examination: ELBOW LEFT 3V, WRIST 3V LEFT, FOREARM LEFT History: LEFT ELBOW PAIN AFTER FALL TODAY Comparison/Correlation: None Findings: 3 images of the left wrist were obtained. Total of 5 images of the left elbow and forearm were provided. Joint spaces are normal. No fracture or bone destruction. Soft tissues are unremarkable. No degenerative change. There is no elbow joint effusion identified. Minimal spurring about the elbow is present. Carpal bones are unremarkable. No radiopaque foreign body. Impression: No fracture or significant degenerative change. If occult carpal bone fracture is a persistent concern, consider interval follow-up. Electronically signed by: Gold Jain MD (07/26/2018 12:38 PM) [facility]
--- NOTE | 2018-07-26 13:04 | PHYS DOC ---
Past Medical History Past Medical History: Asthma, Bipolar, COPD, Diabetes-Type II, High Cholesterol , Heart Disease, Seizure, Other Additional Past Medical Histor: degenerative joint disease, chronic pain Past Surgical History: Appendectomy, Cholecystectomy, Tonsillectomy, Tubal ligation, Other Additional Past Surgical Histo: leg surgery, 3 hernia surgeries Additional Information: 1 PPD Alcohol Use: None Drug Use: None Adult General Chief Complaint Chief Complaint: UPPER EXTREMITY INJURY HPI HPI Patient is a 43 year old who presents with tripping over her cane this morning and fell at 10 AM. Patient denies hitting her head or LOC. Patient complains of left arm pain that she rates a 7 out of 10. Patient states that it hurts from left wrist up to left elbow. Patient has limited range of motion in the left wrist due to pain but left elbow has intact range of motion. Patient states that her fingers seem to be slightly swollen but patient can wiggle fingers has no pain in her fingers. Patient has intact radial pulses Review of Systems Review of Systems Constitutional: Denies fever or chills [] Eyes: Denies change in visual acuity, redness, or eye pain [] HENT: Denies nasal congestion or sore throat [] Respiratory: Denies cough or shortness of breath [] Cardiovascular: No additional information not addressed in HPI [] GI: Denies abdominal pain, nausea, vomiting, bloody stools or diarrhea [] : Denies dysuria or hematuria [] Musculoskeletal: Denies back pain or left wrist and elbow joint pain [] Integument: Denies rash or skin lesions [] Neurologic: Denies headache, focal weakness or sensory changes [] Endocrine: Denies polyuria or polydipsia [] All other systems were reviewed and found to be within normal limits, except as documented in this note. Current Medications Current Medications Current Medications Medications (Trade) Dose Ordered Sig/Bret Start Time Stop Time Status Last Admin Dose Admin Acetaminophen (Tylenol) 500 mg 1X ONCE 07/26/18 13:15 07/26/18 13:15 DC 07/26/18 13:12 500 MG Allergies Allergies Allergies Coded Allergies Type Severity Reaction Last Updated Verified Penicillins Allergy Intermediate 04/12/15 Yes ibuprofen Allergy Intermediate 04/12/15 Yes ketorolac Allergy Intermediate 04/12/15 Yes prednisolone Allergy Intermediate 04/12/15 Yes red dye Allergy Intermediate 04/12/15 Yes tramadol Allergy Intermediate 04/12/15 Yes Physical Exam Physical Exam Constitutional: Well developed, well nourished, no acute distress, non-toxic appearance. [] HENT: Normocephalic, atraumatic, bilateral external ears normal, oropharynx moist, no oral exudates, nose normal. [] Eyes: PERRLA, EOMI, conjunctiva normal, no discharge. [] Neck: Normal range of motion, no tenderness, supple, no stridor. [] Cardiovascular:Heart rate regular rhythm, no murmur [] Lungs & Thorax: Bilateral breath sounds clear to auscultation [] Abdomen: Bowel sounds normal, soft, no tenderness, no masses, no pulsatile masses. [] Skin: Warm, dry, no erythema, no rash. [] Back: No tenderness, no CVA tenderness. [] Extremities: Left wrist and elbow tenderness, no cyanosis, no clubbing, limited ROM in left wrist, no edema. [] Neurologic: Alert and oriented X 3, normal motor function, normal sensory function, no focal deficits noted. [] Psychologic: Affect normal, judgement normal, mood normal. [] Current Patient Data Vital Signs Vital Signs Date Time Temp Pulse Resp B/P (MAP) Pulse Ox O2 Delivery O2 Flow Rate FiO2 07/26/18 11:47 97.8 80 16 151/77 (101) 95 Room Air 97.8 EKG EKG [] Radiology/Procedures Radiology/Procedures [] Impressions: [facility] [address] [place] [address] IMAGING REPORT Signed PATIENT: COREEN MA ACCOUNT: [id number] : 1975 LOCATION: ER AGE: 43 SEX: F EXAM STATUS: REG ER ORD. PHYSICIAN: AMEE BROWN APRN REASON: fall PROCEDURE: ELBOW LEFT 3V Examination: ELBOW LEFT 3V, WRIST 3V LEFT, FOREARM LEFT History: LEFT ELBOW PAIN AFTER FALL TODAY Comparison/Correlation: None Findings: 3 images of the left wrist were obtained. Total of 5 images of the left elbow and forearm were provided. Joint spaces are normal. No fracture or bone destruction. Soft tissues are unremarkable. No degenerative change. There is no elbow joint effusion identified. Minimal spurring about the elbow is present. Carpal bones are unremarkable. No radiopaque foreign body. Impression: No fracture or significant degenerative change. If occult carpal bone fracture is a persistent concern, consider interval follow-up. Electronically signed by: Gold Hawk MD (07/26/2018 12:38 PM) [facility] DICTATED and SIGNED BY: GOLD HAWK MD DATE: 07/26/18 [id number] [place] [address] IMAGING REPORT Signed PATIENT: COREEN MA ACCOUNT: [id number] : 1975 LOCATION: ER AGE: 43 SEX: F EXAM STATUS: REG ER ORD. PHYSICIAN: AMEE BROWN APRN REASON: fall PROCEDURE: FOREARM LEFT Examination: ELBOW LEFT 3V, WRIST 3V LEFT, FOREARM LEFT History: LEFT ELBOW PAIN AFTER FALL TODAY Comparison/Correlation: None Findings: 3 images of the left wrist were obtained. Total of 5 images of the left elbow and forearm were provided. Joint spaces are normal. No fracture or bone destruction. Soft tissues are unremarkable. No degenerative change. There is no elbow joint effusion identified. Minimal spurring about the elbow is present. Carpal bones are unremarkable. No radiopaque foreign body. Impression: No fracture or significant degenerative change. If occult carpal bone fracture is a persistent concern, consider interval follow-up. Electronically signed by: Gold Hawk MD (07/26/2018 12:38 PM) [facility] DICTATED and SIGNED BY: GOLD HAWK MD DATE: 07/26/18 1222 [facility] [address] [place] [address] IMAGING REPORT Signed PATIENT: COREEN MA ACCOUNT: [id number] : 1975 LOCATION: ER AGE: 43 SEX: F EXAM STATUS: REG ER ORD. PHYSICIAN: AMEE BROWN APRN REASON: fall PROCEDURE: WRIST 3V LEFT Examination: ELBOW LEFT 3V, WRIST 3V LEFT, FOREARM LEFT History: LEFT ELBOW PAIN AFTER FALL TODAY Comparison/Correlation: None Findings: 3 images of the left wrist were obtained. Total of 5 images of the left elbow and forearm were provided. Joint spaces are normal. No fracture or bone destruction. Soft tissues are unremarkable. No degenerative change. There is no elbow joint effusion identified. Minimal spurring about the elbow is present. Carpal bones are unremarkable. No radiopaque foreign body. Impression: No fracture or significant degenerative change. If occult carpal bone fracture is a persistent concern, consider interval follow-up. Electronically signed by: Gold Hawk MD (07/26/2018 12:38 PM) [facility] DICTATED and SIGNED BY: GOLD HAWK MD DATE: 07/26/181221 Course & Med Decision Making Course & Med Decision Making Patient is a 43 year old who presents with tripping over her cane this morning and fell at 10 AM. Patient denies hitting her head or LOC. Patient complains of left arm pain that she rates a 7 out of 10. Patient states that it hurts from left wrist up to left elbow. Patient has limited range of motion in the left wrist due to pain but left elbow has intact range of motion. Patient states that her fingers seem to be slightly swollen but patient can wiggle fingers has no pain in her fingers. Patient has intact radial pulses. Cap refill is less than 3 seconds. Upon examination of the arm patient has slight tenderness at the left wrist and left elbow. There is no deformity, bruising or swelling seen. Patient denies any numbness or tingling . She denies any other injury from her fall. Patient is neurologically intact. Patient is allergic to penicillin, ibuprofen, Toradol, red dye, prednisone. Patient states she took Tylenol this morning at 1005. Patient's x-ray of her left wrist, forearm, elbow show no acute findings. Patient is given an Edi wrap and is discharged home to follow up with her primary care provider. Staff Physician Addendum: I was working in the ER during the course of this patient's visit. I was available for consultation as needed, but I was not directly involved in the care of this patient. [] Dragon Disclaimer Dragon Disclaimer This electronic medical record was generated, in whole or in part, using a voice recognition dictation system. Departure Departure Impression: Primary Impression: Wrist contusion Additional Impression: Left arm pain Disposition: 01 HOME, SELF-CARE Condition: STABLE Referrals: [facility] (PCP) Patient Instructions: Contusion, Elbow Contusion Additional Instructions: Follow up with primary care. Use edi wrap and ice to help pain. Take Tylenol for pain. Problem Qualifiers Primary Impression: Wrist contusion Encounter type: initial encounter Laterality: left Qualified Codes: S60.212A - Contusion of left wrist, initial encounter AMEE BROWN APRN Jul 26, 2018 13:04 KIRSTEN HARRINGTON MD Jul 26, 2018 13:56
[2018-07-26] MEDS ORDERED: ACETAMINOPHEN 500 MG TABLET PO ONE (13:15)
== END 2018-07-26 13:15 | disposition home or self-care (01) ==
LOC: ER 11:45
DX: S60.212A Contusion of left wrist, initial encounter (principal); M79.602 Pain in left arm; M25.522 Pain in left elbow; F31.9 Bipolar disorder, unspecified; J44.9 Chronic obstructive pulmonary disease, unspecified; E78.00 Pure hypercholesterolemia, unspecified; E11.9 Type 2 diabetes mellitus without complications; F17.200 Nicotine dependence, unspecified, uncomplicated; Z88.0 Allergy status to penicillin; Z88.5 Allergy status to narcotic agent; Z88.8 Allergy status to other drugs, medicaments and biological substances; Z91.041 Radiographic dye allergy status; W01.0XXA Fall on same level from slipping, tripping and stumbling without subsequent striking against object, initial encounter; Y93.89 Activity, other specified; Y92.89 Other specified places as the place of occurrence of the external cause; Y99.8 Other external cause status
CPT/HCPCS: 73080; 73090; 73110; 99284

== ENCOUNTER 2018-09-19 19:20 | Emergency (ER) | payer OTHER ==
[~2018-09-19] VITALS: Ht 157.5 cm; Wt 89.8 kg
--- NOTE | 2018-09-19 19:40 | PHYS DOC ---
Past Medical History Past Medical History: Asthma, Bipolar, COPD, Diabetes-Type II, High Cholesterol , Heart Disease, Seizure, Other Additional Past Medical Histor: degenerative joint disease, chronic pain Past Surgical History: Appendectomy, Cholecystectomy, Tonsillectomy, Tubal ligation, Other Additional Past Surgical Histo: leg surgery, 3 hernia surgeries Alcohol Use: None Drug Use: None Adult General Chief Complaint Chief Complaint: UPPER EXTREMITY INJURY HPI HPI Patient is a 43 year old female with history of COPD, hypertension, bipolar, asthma, who presents today to be evaluated after falling. Patient is complaining of mild throbbing intermittent left forearm and left hand pain status post falling. She states she was getting up from her couch when she fell. Patient denies any loss of consciousness. She states she braced herself with the left hand. Patient states her pain is worse on range of motion. She states she has not taken anything for her pain. Review of Systems Review of Systems Constitutional: Denies fever or chills [] Musculoskeletal: Reports left forearm and hand pain. Integument: Denies rash or skin lesions [] Neurologic: Denies headache, focal weakness or sensory changes [] All other systems were reviewed and found to be within normal limits, except as documented in this note. Current Medications Current Medications Current Medications Medications (Trade) Dose Ordered Sig/Bret Start Time Stop Time Status Last Admin Dose Admin Acetaminophen/ Hydrocodone Bitart (Lortab 5/325) 1 tab 1X ONCE 09/19/18 20:45 09/19/18 20:46 DC 09/19/18 20:53 1 TAB Allergies Allergies Allergies Coded Allergies Type Severity Reaction Last Updated Verified Penicillins Allergy Intermediate 04/12/15 Yes ibuprofen Allergy Intermediate 04/12/15 Yes ketorolac Allergy Intermediate 04/12/15 Yes prednisolone Allergy Intermediate 04/12/15 Yes red dye Allergy Intermediate 04/12/15 Yes tramadol Allergy Intermediate 04/12/15 Yes Physical Exam Physical Exam Constitutional: Well developed, well nourished, no acute distress, non-toxic appearance. [] Skin: Warm, dry, no erythema, no rash. [] Back: No tenderness, no CVA tenderness. [] Extremities: Left upper extremity with no obvious deformity, no bruising, no tenderness on physical exam. Full range of motion to the left upper extremity. Adequate radial, medial, ulnar sensation to the left upper extremity. +2 left radial pulse. Cap refill less than 2 seconds to the left upper extremity Neurologic: Alert and oriented X 3, normal motor function, normal sensory function, no focal deficits noted. [] Psychologic: Affect normal, judgement normal, mood normal. [] Current Patient Data Vital Signs Vital Signs Date Time Temp Pulse Resp B/P (MAP) Pulse Ox O2 Delivery O2 Flow Rate FiO2 09/19/18 20:53 16 96 Room Air 09/19/18 20:46 76 116/67 (83) 09/19/18 19:40 97.8 97.8 EKG EKG [] Radiology/Procedures Radiology/Procedures [] Course & Med Decision Making Course & Med Decision Making Pertinent Labs and Imaging studies reviewed. (See chart for details) This is a 43-year-old female patient presenting to the ED today to be evaluated for left hand pain, left forearm pain status post falling. Left forearm and left hand x-rays interpreted by were noted for possible buckle fracture distal radius, patient was placed in a volar splint in the ED by the systems technologist, neurovascular exam done by me is normal. Ice elevation encouraged. Follow-up with orthopedic doctor by calling the office tomorrow for an appointment. Dragon Disclaimer Dragon Disclaimer This electronic medical record was generated, in whole or in part, using a voice recognition dictation system. Departure Departure Impression: Primary Impression: Fall from standing Additional Impression: Left radial fracture Disposition: 01 HOME, SELF-CARE Condition: STABLE Referrals: MAXINE MONCADA MD (PCP) MIRELA RAVI MD follow up in the course of this week or next week Patient Instructions: Fall Prevention and Home Safety, Wrist Fracture with [facility] Additional Instructions: You were evaluated in the emergency room after falling. You could have a fracture of the right wrist. We put you in a splint. Ice elevate the extremity. Contact the provided orthopedic doctor tomorrow morning and set up a follow-up appointment. Come back to the ED at any point symptoms worsen. Scripts Acetaminophen With Codeine (TYLENOL WITH CODEINE #3 TABLET) 1 Each Tablet 1 TAB PO PRN Q6HRS PRN for PAIN, #20 TAB Prov: MUTUNGA,RAFAEL FOXING PAINTER 09/19/18 Problem Qualifiers Primary Impression: Fall from standing Encounter type: initial encounter Qualified Codes: W19.XXXA - Unspecified fall, initial encounter Additional Impression: Left radial fracture Encounter type: initial encounter Radius location: distal Fracture type: closed Fracture morphology: unspecified fracture morphology Qualified Codes: S52.502A - Unspecified fracture of the lower end of left radius, initial encounter for closed fracture RAFAEL CINTRON APRN Sep 19, 2018 19:40
[2018-09-19] MEDS ORDERED: HYDROcodone/APAP 5/325MG 1 TAB TABLET PO ONE (20:45)
[2018-09-19 20:46] VITALS: BP 116/67
[2018-09-19] MEDS ORDERED: ACET-704 PO (21:39)
--- NOTE | 2018-09-19 21:45 | RAD ---
Indication: Injury TECHNIQUE: 2 views of the left forearm COMPARISON: None Findings/ impression: Punctate calcific density seen adjacent to the proximal ulna may represent an avulsion fracture at the insertion of the ulnar collateral ligament. Clinically correlate with focal tenderness along the medial aspect of the elbow joint. No joint effusion. Electronically signed by: Gumaro Galeano DO (09/19/2018 9:41 PM) [facility]
--- NOTE | 2018-09-19 21:46 | RAD ---
Indication:Injury, fall on left arm today TECHNIQUE: 3 views of left hand COMPARISON:None FINDINGS: No acute fracture or dislocation. Electronically signed by: Gumaro Galeano DO (09/19/2018 9:42 PM) [facility]
== END 2018-09-19 21:51 | disposition home or self-care (01) ==
LOC: ER 19:20
DX: S52.502A Unspecified fracture of the lower end of left radius, initial encounter for closed fracture (principal); J44.9 Chronic obstructive pulmonary disease, unspecified; F31.9 Bipolar disorder, unspecified; E78.00 Pure hypercholesterolemia, unspecified; I11.0 Hypertensive heart disease with heart failure; I50.9 Heart failure, unspecified; Z88.0 Allergy status to penicillin; Z91.041 Radiographic dye allergy status; Z88.6 Allergy status to analgesic agent; Z88.8 Allergy status to other drugs, medicaments and biological substances; W08.XXXA Fall from other furniture, initial encounter; Y93.89 Activity, other specified; Y92.89 Other specified places as the place of occurrence of the external cause; Y99.8 Other external cause status
CPT/HCPCS: 29125; 73090; 73130; 99283-25; 99284-25

== ENCOUNTER 2018-12-05 20:44 | Emergency (ER) | payer OTHER ==
[~2018-12-05] VITALS: Ht 157.5 cm; Wt 95.3 kg
[~2018-12-05 20:44] MED LIST changes: +ACET-704 PO; -GABA-587 PO; +GABA-689 PO; -GABA800T2 PO; +GABA800T5 PO
--- NOTE | 2018-12-05 21:13 | PHYS DOC ---
Past Medical History Past Medical History: Asthma, Bipolar, COPD, Diabetes-Type II, High Cholesterol , Heart Disease, Seizure, Other Additional Past Medical Histor: degenerative joint disease, chronic pain Past Surgical History: Appendectomy, Cholecystectomy, Tonsillectomy, Tubal ligation, Other Additional Past Surgical Histo: leg surgery, 3 hernia surgeries Alcohol Use: None Drug Use: None Adult General Chief Complaint Chief Complaint: HYPERGLYCEMIA HPI HPI Patient is a 43 year old female with PMH of epilepsy, heart disease, bipolar disorder, COPD, and type II Diabetes, who presents with head trauma after falling in her shower. It is unclear if the fall was due to a seizure or not. She denies LOC, bleeding, light headedness, chest pain, shortness of breath and called EMS after she realized she had fallen. EMS reports glucose level in the 400s. Currently she has discomfort where she hit her head but is otherwise asymptomatic. She was diagnosed with epilepsy in 2009 and only reports gabapentin for management. She reports typically one seizure a month often provoked by stress or anxiety and of note, ketchup. Patient checks her sugars three time a day with readings around 120-150. She denies missing any of her medications or "having a cheat meal." Also no history of dizziness or syncope. She has a routine appointment with her neurologist scheduled for tomorrow. 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 Review of Systems Review of Systems Constitutional: Denies fever or chills [] Eyes: Denies change in visual acuity, redness, or eye pain [] HENT: reports nasal congestion, mild sore throat, pain in back of her head Respiratory: Reports cough, no wheezing Cardiovascular: No additional information not addressed in HPI [] GI: Denies abdominal pain, nausea, vomiting, bloody stools or diarrhea [] : Denies dysuria or hematuria [] Musculoskeletal: reports pain in numerous joints secondary to DJD Integument: Denies rash or skin lesions [] Neurologic: Denies headache, focal weakness or sensory changes [] Complete systems were reviewed and found to be within normal limits, except as documented in this note. Current Medications Current Medications Current Medications Medications (Trade) Dose Ordered Sig/Bret Start Time Stop Time Status Last Admin Dose Admin Insulin Human Regular (HumuLIN R VIAL) 14 unit 1X ONCE 2/5/19 23:00 12/05/18 23:01 Sodium Chloride 1,000 ml @ 1,000 mls/hr 1X ONCE 12/05/18 22:00 12/05/18 22:59 12/05/18 22:10 1,000 MLS/HR Allergies Allergies Allergies Coded Allergies Type Severity Reaction Last Updated Verified Penicillins Allergy Intermediate 04/12/15 Yes ibuprofen Allergy Intermediate 04/12/15 Yes ketorolac Allergy Intermediate 04/12/15 Yes prednisolone Allergy Intermediate 04/12/15 Yes red dye Allergy Intermediate 04/12/15 Yes tramadol Allergy Intermediate 04/12/15 Yes Physical Exam Physical Exam Constitutional: Well developed, obese, no acute distress. [] HENT: Normocephalic, focal tenderness and swelling over left occiput, no laceration or bleeding Eyes: PERRL, EOMI, conjunctiva normal, no discharge. [] Neck: Normal range of motion, no tenderness, supple, no stridor. [] Cardiovascular:Heart rate regular rhythm, no murmur [] Lungs & Thorax: decreased breath sounds bilaterally, no wheezing, no crackles Abdomen: soft, no tenderness, no distention Skin: Warm, dry, no erythema, no rash. [] Back: No tenderness, no CVA tenderness. [] Extremities: moves all, ROM intact, no edema. [] Neurologic: Alert and oriented X 3, normal motor function, normal sensory function, no focal deficits noted. [] Psychologic: Affect normal, judgement normal, mood normal. [] Current Patient Data Vital Signs Vital Signs Date Time Temp Pulse Resp B/P (MAP) Pulse Ox O2 Delivery O2 Flow Rate FiO2 12/05/18 20:44 98.5 89 22 180/72 (108) 96 Room Air 98.5 Lab Values Laboratory Tests Test 12/05/18 20:52 12/05/18 20:55 12/05/18 22:10 12/05/18 22:48 Glucose (Fingerstick) 312 mg/dL (70-99) H 292 mg/dL (70-99) H White Blood Count 14.8 x10^3/uL (4.0-11.0) H Red Blood Count 4.99 x10^6/uL (3.50-5.40) Hemoglobin 15.7 g/dL (12.0-15.5) H Hematocrit 45.8 % (36.0-47.0) Mean Corpuscular Volume 92 fL (79-100) Mean Corpuscular Hemoglobin 31 pg (25-35) Mean Corpuscular Hemoglobin Concent 34 g/dL (31-37) Red Cell Distribution Width 13.7 % (11.5-14.5) Platelet Count 374 x10^3/uL (140-400) Neutrophils (%) (Auto) 75 % (31-73) H Lymphocytes (%) (Auto) 19 % (24-48) L Monocytes (%) (Auto) 5 % (0-9) Eosinophils (%) (Auto) 1 % (0-3) Basophils (%) (Auto) 1 % (0-3) Neutrophils # (Auto) 11.1 x10^3uL (1.8-7.7) H Lymphocytes # (Auto) 2.8 x10^3/uL (1.0-4.8) Monocytes # (Auto) 0.7 x10^3/uL (0.0-1.1) Eosinophils # (Auto) 0.1 x10^3/uL (0.0-0.7) Basophils # (Auto) 0.1 x10^3/uL (0.0-0.2) Sodium Level 135 mmol/L (136-145) L Potassium Level 3.7 mmol/L (3.5-5.1) Chloride Level 96 mmol/L (98-107) L Carbon Dioxide Level 29 mmol/L (21-32) Anion Gap 10 (6-14) Blood Urea Nitrogen 10 mg/dL (7-20) Creatinine 0.9 mg/dL (0.6-1.0) Estimated GFR (Cockcroft-Gault) 68.3 BUN/Creatinine Ratio 11 (6-20) Glucose Level 397 mg/dL (70-99) H Lactic Acid Level 1.6 mmol/L (0.4-2.0) Calcium Level 8.8 mg/dL (8.5-10.1) Magnesium Level 1.9 mg/dL (1.8-2.4) Total Bilirubin 0.3 mg/dL (0.2-1.0) Aspartate Amino Transferase (AST) 24 U/L (15-37) Alanine Aminotransferase (ALT) 59 U/L (14-59) Alkaline Phosphatase 101 U/L (46-116) Creatine Kinase 38 U/L (26-192) Creatine Kinase MB (Mass) 0.5 ng/mL (0.0-3.6) Creatine Kinase MB Relative Index % (0-4) Troponin I Quantitative < 0.017 ng/mL (0.000-0.055) Total Protein 7.4 g/dL (6.4-8.2) Albumin 3.7 g/dL (3.4-5.0) Albumin/Globulin Ratio 1.0 (1.0-1.7) Ethyl Alcohol Level < 10 mg/dL (0-10) Acetone Level Neg (NEG) Urine Collection Type Unknown Urine Color Yellow Urine Clarity Clear Urine pH 6.0 Urine Specific [place] >=1.030 Urine Protein Negative mg/dL (NEG-TRACE) Urine Glucose (UA) >=1000 mg/dL (NEG) Urine Ketones (Stick) Negative mg/dL (NEG) Urine Blood Moderate (NEG) Urine Nitrite Negative (NEG) Urine Bilirubin Negative (NEG) Urine Urobilinogen Dipstick 0.2 mg/dL (0.2 mg/dL) Urine Leukocyte Esterase Negative (NEG) Urine RBC 3-5 /HPF (0-2) Urine WBC 1-4 /HPF (0-4) Urine Squamous Epithelial Cells Few /LPF Urine Bacteria Few /HPF (0-FEW) Urine Opiates Screen Neg (NEG) Urine Methadone Screen Neg (NEG) Urine Barbiturates Neg (NEG) Urine Phencyclidine Screen Neg (NEG) Urine Amphetamine/Methamphetamine Neg (NEG) Urine Benzodiazepines Screen Neg (NEG) Urine Cocaine Screen Neg (NEG) Urine Cannabinoids Screen Neg (NEG) Urine Ethyl Alcohol Neg (NEG) Laboratory Tests 12/05/18 20:55 Laboratory Tests 12/05/18 20:55 EKG EKG 12/05/18 at 22:03:13 Normal sinus rhythm with baseline HR of 73 BPM, unchanged from previous EKG from 12/10/16 [] Radiology/Procedures Radiology/Procedures []PA and lateral chest. HISTORY: Cough and short of breath PA and lateral views were taken of the chest. The heart is normal in size. There is no effusion or heart failure. There are interstitial changes in the lungs which have been present on old studies, comparison was made with a study from December 2016. IMPRESSION: 1. Chronic interstitial changes in the lungs. 2. No confluent infiltrate. Electronically signed by: Tirso Azar MD (12/05/2018 10:29 PM) [facility] DICTATED and SIGNED BY: TIRSO AZAR MD DATE: 12/05/182227 CT brain without contrast, CT cervical spine without contrast. HISTORY: Fall with head trauma, head contusion CT scan of the brain was done without contrast. There is no intracranial hemorrhage or subdural hematoma. Ventricles are normal in size. Sinuses are clear. There is no mass or shift of the midline. IMPRESSION: 1. No intracranial hemorrhage or acute finding noted. End impression CT cervical spine Axial CT images were obtained to the cervical spine. Sagittal and coronal reconstructed images were reviewed. Thyroid is homogeneous. A disc protrusion is not identified. C-spine is in normal alignment. Disc spaces are normal in height. An acute fracture is not identified. IMPRESSION: 1. No acute fracture noted in the cervical spine. Course & Med Decision Making Course & Med Decision Making Pertinent Labs and Imaging studies reviewed. (See chart for details) []Patient is a 43 year old female with PMH of epilepsy and type II diabetes who presents for evaluation of head contusion after falling in the shower. On arrival she complained of focal tenderness and swelling where she hit her head but was otherwise asymptomatic. Her glucose level however was in the 400s but patient not found to be in DKA. Patient reports compliance with her medications. Work up revealed WBC, lactate, and CK levels to be within normal limits so while a seizure cannot be ruled out it is less likely cause of her fall. Glucose levels downtrending with fluids. Held off on giving basal insulin dose as patient said she will take her bedtime insulin when she gets home. After confirming no intracranial bleeding or pathology patient was discharged and will follow up with her neurologist tomorrow. Dragon Disclaimer Dragon Disclaimer This electronic medical record was generated, in whole or in part, using a voice recognition dictation system. Departure Departure Impression: Primary Impression: Fall from standing Additional Impressions: Head contusion Hyperglycemia Disposition: 01 HOME, SELF-CARE Condition: STABLE Referrals: MAXINE MONCADA MD (PCP) Patient Instructions: Fall Prevention and Home Safety, [id number], Head Injury, Adult, [id number], Hyperglycemia, [id number] Additional Instructions: Please take your medication for your blood sugar upon returning home. Problem Qualifiers Primary Impression: Fall from standing Encounter type: initial encounter Qualified Codes: W19.XXXA - Unspecified fall, initial encounter Additional Impressions: Head contusion Encounter type: initial encounter Contusion of head detail: scalp Qualified Codes: S00.03XA - Contusion of scalp, initial encounter ALEXIS GAMBLE DO Dec 05, 2018 21:13
[2018-12-05 21:36] LABS: BASO # 0.1 x10^3/uL (0.0-0.2); BASO % 1 % (0-3); EOS # 0.1 x10^3/uL (0.0-0.7); EOS % 1 % (0-3); HEMATOCRIT 45.8 % (36.0-47.0); HEMOGLOBIN 15.7 g/dL (12.0-15.5); LYMPH # 2.8 x10^3/uL (1.0-4.8); LYMPH % 19 % (24-48); MEAN CORPUSCULAR HEMOGLOBIN 31 pg (25-35); MEAN CORPUSCULAR HGB CONC 34 g/dL (31-37); MEAN CORPUSCULAR VOLUME 92 fL (79-100); MONO # 0.7 x10^3/uL (0.0-1.1); MONO % 5 % (0-9); NEUT # 11.1 x10^3uL (1.8-7.7); NEUT % 75 % (31-73); PLATELET COUNT 374 x10^3/uL (140-400); RED BLOOD COUNT 4.99 x10^6/uL (3.50-5.40); RED CELL DISTRIBUTION WIDTH 13.7 % (11.5-14.5); WHITE BLOOD COUNT 14.8 x10^3/uL (4.0-11.0)
[2018-12-05 21:46] LABS: ANION GAP 10 (6-14); BLOOD UREA NITROGEN 10 mg/dL (7-20); BUN/CREATININE RATIO 11 (6-20); CALCIUM 8.8 mg/dL (8.5-10.1); CARBON DIOXIDE 29 mmol/L (21-32); CHLORIDE 96 mmol/L (98-107); CREATININE 0.9 mg/dL (0.6-1.0); GFR 68.3; GLUCOSE 397 mg/dL (70-99); POTASSIUM 3.7 mmol/L (3.5-5.1); SODIUM 135 mmol/L (136-145)
[2018-12-05 21:52] LABS: ALBUMIN 3.7 g/dL (3.4-5.0); ALK PHOS 101 U/L (46-116); ALT (SGPT) 59 U/L (14-59); AST (SGOT) 24 U/L (15-37); MAGNESIUM 1.9 mg/dL (1.8-2.4); TOTAL BILIRUBIN 0.3 mg/dL (0.2-1.0); TOTAL PROTEIN 7.4 g/dL (6.4-8.2)
[2018-12-05 21:54] LABS: ACETONE NEG (NEG)
[2018-12-05 21:59] LABS: CREATINE KINASE 38 U/L (26-192)
[2018-12-05] MEDS ORDERED: IV NORMAL SALINE 1000ML BAG 1,000 ML IV ONE (22:00)
[2018-12-05 22:24] LABS: BILIRUBIN,URINE NEGATIVE (NEG); CLARITY,URINE CLEAR; COLOR,URINE YELLOW; NITRITE,URINE NEGATIVE (NEG); PROTEIN,URINE NEGATIVE (NEG-TRACE); UROBILINOGEN,URINE 0.2 mg/dL (0.2 mg/dL)
[2018-12-05 22:34] LABS: BACTERIA,URINE FEW /HPF (0-FEW)
--- NOTE | 2018-12-05 22:34 | RAD ---
PA and lateral chest. HISTORY: Cough and short of breath PA and lateral views were taken of the chest. The heart is normal in size. There is no effusion or heart failure. There are interstitial changes in the lungs which have been present on old studies, comparison was made with a study from December 2016. IMPRESSION: 1. Chronic interstitial changes in the lungs. 2. No confluent infiltrate. Electronically signed by: Tirso Kirkpatrick MD (12/05/2018 10:29 PM) [facility]
[2018-12-05 22:35] LABS: SQUAMOUS EPITHELIAL CELL,UR FEW /LPF
[2018-12-05 22:38] LABS: BARBITURATES NEG (NEG); BENZODIAZEPINES NEG (NEG); CANNABINOIDS NEG (NEG); COCAINE NEG (NEG); METHADONE NEG (NEG); OPIATES NEG (NEG); PHENCYCLIDINE NEG (NEG)
--- NOTE | 2018-12-05 22:38 | RAD ---
CT brain without contrast, CT cervical spine without contrast. HISTORY: Fall with head trauma, head contusion CT scan of the brain was done without contrast. There is no intracranial hemorrhage or subdural hematoma. Ventricles are normal in size. Sinuses are clear. There is no mass or shift of the midline. IMPRESSION: 1. No intracranial hemorrhage or acute finding noted. End impression CT cervical spine Axial CT images were obtained to the cervical spine. Sagittal and coronal reconstructed images were reviewed. Thyroid is homogeneous. A disc protrusion is not identified. C-spine is in normal alignment. Disc spaces are normal in height. An acute fracture is not identified. IMPRESSION: 1. No acute fracture noted in the cervical spine. PQRS Compliance Statement: One or more of the following individualized dose reduction techniques were utilized for this examination: 1. Automated exposure control 2. Adjustment of the mA and/or kV according to patient size 3. Use of iterative reconstruction technique Electronically signed by: Tirso Kirkpatrick MD (12/05/2018 10:33 PM) [facility]
[2018-12-05 22:40] LABS: AMPHETAMINE/METHAMPHETAMINE NEG (NEG)
[2018-12-05 22:43] VITALS: BP 130/90
[2018-12-05] MEDS ORDERED: INSULIN REGULAR 100 UNIT/ML 3ML VIAL. SQ ONE (23:00)
--- NOTE | 2018-12-06 03:33 | EKG ---
[facility] [address] [place] [address] Test Date: 2018-12-05 Test Time: 22:03:13 Pat Name: COREEN MA Department: Room: Gender: F Manager Critical Care: : 1975 Requested By: ALEXIS GAMBLE Order Number: [id number] Reading MD: Conrad Ren MD Measurements Intervals [place] Rate: 72 P: MN: QRS: -24 QRSD: 78 T: 53 QT: 384 QTc: 426 Interpretive Statements SR Electronically Signed On 12-06-2018 8:36:07 BILLING TYPIST by Conrad Ren MD
[2019-05-13] MEDS ORDERED: MELO7.5T29 PO (15:11)
[2019-05-13] MEDS ORDERED: INSU100I13 SQ (15:11)
[2019-05-13] MEDS ORDERED: SIMV40TA3 PO (15:11)
[2019-05-13] MEDS ORDERED: CLIN300C8 PO (15:11)
[2019-05-13] MEDS ORDERED: INSU100I11 SQ (15:11)
[2019-05-24] MEDS ORDERED: HYDR-3164 PO (16:27)
== END 2018-12-05 23:03 | disposition home or self-care (01) ==
LOC: ER 20:44
DX: S00.03XA Contusion of scalp, initial encounter (principal); E11.65 Type 2 diabetes mellitus with hyperglycemia; R51 Headache; R05 Cough; R06.02 Shortness of breath; J44.9 Chronic obstructive pulmonary disease, unspecified; F31.9 Bipolar disorder, unspecified; E78.00 Pure hypercholesterolemia, unspecified; G89.29 Other chronic pain; Z88.0 Allergy status to penicillin; Z88.6 Allergy status to analgesic agent; Z88.5 Allergy status to narcotic agent; Z91.041 Radiographic dye allergy status; Z88.8 Allergy status to other drugs, medicaments and biological substances; W18.39XA Other fall on same level, initial encounter; Y93.E1 Activity, personal bathing and showering; Y92.89 Other specified places as the place of occurrence of the external cause; Y99.8 Other external cause status
CPT/HCPCS: 70450; 71046; 72125; 80053; 80307; 81001; 82010; 82553; 82962; 83605; 83735; 84484; 85025; 93005; 96360; 99284; G0480; J7030; 36415; 83930

== ENCOUNTER 2018-12-18 19:55 | Emergency (ER) | payer OTHER ==
[~2018-12-18] VITALS: Ht 157.5 cm; Wt 95.3 kg
[2018-12-18] MEDS ORDERED: ACETAMINOPHEN 500 MG TABLET PO ONE (20:15)
--- NOTE | 2018-12-18 20:58 | RAD ---
3 view radiographs of the left foot and left ankle 12/18/2018 CLINICAL HISTORY: Fall with ankle and left foot pain. Portable AP, lateral and oblique digital radiographs of the left ankle were obtained. Portable AP, lateral and oblique digital radiographs of the left foot were obtained. The left ankle mortise is intact. No fracture or dislocation of the left ankle is seen. Mild degenerative changes are seen involving the left ankle joint. No fracture or dislocation of the left foot is seen. Mild degenerative changes are seen scattered throughout the interphalangeal joints of the left foot along the first MTP joint and tarsometatarsal joints. Mild to moderate enthesophyte formation is seen involving the posterior left calcaneus. IMPRESSION: No fracture or dislocation of the left ankle or left foot is seen. Electronically signed by: Smooth Singh MD (12/18/2018 8:55 PM) [facility]
--- NOTE | 2018-12-18 21:04 | PHYS DOC ---
Past Medical History Past Medical History: Asthma, Bipolar, COPD, Diabetes-Type II, High Cholesterol , Heart Disease, Seizure, Other Additional Past Medical Histor: degenerative joint disease, chronic pain (CALVIN FLORIAN APRN) Past Surgical History: Appendectomy, Cholecystectomy, Tonsillectomy, Tubal ligation, Other Additional Past Surgical Histo: leg surgery, 3 hernia surgeries (CALVIN FLORIAN APRN) Alcohol Use: None Drug Use: None (CALVIN FLORIAN APRN) Adult General Chief Complaint Chief Complaint: ANKLE PROBLEM HPI HPI Patient is a 43 year old female who presents with left ankle and foot pain. The patient states that she her significant other walked to the gas station. She states that it is a long distance from her house. She states that they made the journey to the gas station just fine but as they were walking back she stepped on a rock injuring her left foot and ankle. She denies any other injury. She was transported to this hospital via EMS. (CALVIN FLORIAN APRN) Review of Systems Review of Systems Constitutional: Denies fever or chills [] Respiratory: Denies cough or shortness of breath [] Cardiovascular: No additional information not addressed in HPI [] GI: Denies abdominal pain, nausea, vomiting, bloody stools or diarrhea [] : Denies dysuria or hematuria [] Musculoskeletal: See history of present illness Integument: Denies rash or skin lesions [] Neurologic: Denies headache, focal weakness or sensory changes [] Endocrine: Denies polyuria or polydipsia [] All other systems were reviewed and found to be within normal limits, except as documented in this note. (CALVIN FLORIAN APRN) Current Medications Current Medications Current Medications Medications (Trade) Dose Ordered Sig/Bret Start Time Stop Time Status Last Admin Dose Admin Acetaminophen (Tylenol) 1,000 mg 1X ONCE 12/18/18 20:15 12/18/18 20:16 DC 12/18/18 20:21 1,000 MG (KIRSTEN HARRINGTON MD) Allergies Allergies Allergies Coded Allergies Type Severity Reaction Last Updated Verified Penicillins Allergy Intermediate 04/12/15 Yes ibuprofen Allergy Intermediate 04/12/15 Yes ketorolac Allergy Intermediate 04/12/15 Yes prednisolone Allergy Intermediate 04/12/15 Yes red dye Allergy Intermediate 04/12/15 Yes tramadol Allergy Intermediate 04/12/15 Yes (KIRSTEN HARRINGTON MD) Physical Exam Physical Exam Constitutional: Well developed, well nourished, no acute distress, non-toxic appearance. [] Cardiovascular:Heart rate regular rhythm, no murmur [] Lungs & Thorax: Bilateral breath sounds clear to auscultation [] Abdomen: Bowel sounds normal, soft, no tenderness, no masses, no pulsatile masses. [] Skin: Warm, dry, no erythema, no rash. [] Back: No tenderness, no CVA tenderness. [] Extremities: Left ankle tenderness radiating into the bottom of her foot, no cyanosis, no clubbing, ROM decreased due to pain, no edema, pulses and sensation are intact distal to injury, the patient is already wearing an Edi wrap. [] Neurologic: Alert and oriented X 3, normal motor function, normal sensory function, no focal deficits noted. [] Psychologic: Affect normal, judgement normal, mood normal. [] (CALVIN FLORIAN APRN) Current Patient Data Vital Signs Vital Signs Date Time Temp Pulse Resp B/P (MAP) Pulse Ox O2 Delivery O2 Flow Rate FiO2 12/18/18 19:55 98.3 93 20 148/72 (97) 95 Room Air 98.3 (KIRSTEN HARRINGTON MD) EKG EKG [] (CALVIN FLORIAN APRN) Radiology/Procedures Radiology/Procedures []PATIENT: COREEN MA LACCOUNT: [id number]#: [id number] : 1975 LOCATION: ER AGE: 43 SEX: F EXAM STATUS: REG ER ORD. PHYSICIAN: CALVIN FLORIAN APRN REASON: fell tonight, pain to bottom of foot and lateral ankle PROCEDURE: ANKLE LEFT 3V 3 view radiographs of the left foot and left ankle 12/18/2018 CLINICAL HISTORY: Fall with ankle and left foot pain. Portable AP, lateral and oblique digital radiographs of the left ankle were obtained. Portable AP, lateral and oblique digital radiographs of the left foot were obtained. The left ankle mortise is intact. No fracture or dislocation of the left ankle is seen. Mild degenerative changes are seen involving the left ankle joint. No fracture or dislocation of the left foot is seen. Mild degenerative changes are seen scattered throughout the interphalangeal joints of the left foot along the first MTP joint and tarsometatarsal joints. Mild to moderate enthesophyte formation is seen involving the posterior left calcaneus. IMPRESSION: No fracture or dislocation of the left ankle or left foot is seen. Electronically signed by: John Singh MD (12/18/2018 8:55 PM) [facility] DICTATED and SIGNED BY: JOHN SINGH MD DATE: 12/18/182051 (CALVIN FLORIAN APRN) Course & Med Decision Making Course & Med Decision Making Pertinent Labs and Imaging studies reviewed. (See chart for details) Images were negative for an acute fracture. The patient was given Tylenol in the emergency department for pain. The patient is requesting a cab pass to get home. (CALVIN FLORIAN APRN) Course & Med Decision Making Staff Physician Addendum: I was working in the ER during the course of this patient's visit. I was available for consultation as needed, but I was not directly involved in the care of this patient. (KIRSTEN HARRINGTON MD) Dragon Disclaimer Dragon Disclaimer This electronic medical record was generated, in whole or in part, using a voice recognition dictation system. (CALVIN FLORIAN APRN) Departure Departure Impression: Primary Impression: Ankle pain, left Disposition: 01 HOME, SELF-CARE Condition: STABLE Referrals: MAXINE MONCADA MD (PCP) Patient Instructions: RICE - Routine Care for Injuries Additional Instructions: You may take Tylenol for pain. RICE the extremity. Follow-up with your primary care provider if not improving in 4 days for possible referral to orthopedics. CALVIN FLORIAN APRN Dec 18, 2018 21:04 KIRSTEN HARRINGTON MD Dec 19, 2018 01:08
[2019-05-13] MEDS ORDERED: SIMV40TA3 PO (15:11)
[2019-05-13] MEDS ORDERED: MELO7.5T29 PO (15:11)
[2019-05-13] MEDS ORDERED: INSU100I11 SQ (15:11)
[2019-05-13] MEDS ORDERED: CLIN300C8 PO (15:11)
[2019-05-13] MEDS ORDERED: INSU100I13 SQ (15:11)
[2019-05-24] MEDS ORDERED: HYDR-3164 PO (16:27)
== END 2018-12-18 21:21 | disposition home or self-care (01) ==
LOC: ER 19:55
DX: M25.572 Pain in left ankle and joints of left foot (principal); M79.672 Pain in left foot; G89.11 Acute pain due to trauma; F31.9 Bipolar disorder, unspecified; J44.9 Chronic obstructive pulmonary disease, unspecified; E78.00 Pure hypercholesterolemia, unspecified; G89.29 Other chronic pain; Z88.0 Allergy status to penicillin; Z88.6 Allergy status to analgesic agent; Z91.041 Radiographic dye allergy status; Z88.8 Allergy status to other drugs, medicaments and biological substances; W22.8XXA Striking against or struck by other objects, initial encounter; Y93.01 Activity, walking, marching and hiking; Y92.89 Other specified places as the place of occurrence of the external cause; Y99.8 Other external cause status
CPT/HCPCS: 73610; 73630; 99284

== ENCOUNTER 2019-01-06 11:13 | Emergency (ER) | payer OTHER ==
[~2019-01-06] VITALS: Ht 157.5 cm; Wt 92.5 kg
[2019-01-06 11:15] VITALS: BP 145/81
[2019-01-06] MEDS ORDERED: HYDROcodone/APAP 5/325MG 1 TAB TABLET PO ONE (11:45)
--- NOTE | 2019-01-06 11:45 | PHYS DOC ---
Past Medical History Past Medical History: Asthma, COPD, CVA, Diabetes-Type II, High Cholesterol Additional Past Medical Histor: degenerative joint disease, chronic pain Past Surgical History: Other Additional Past Surgical Histo: unk Alcohol Use: None Drug Use: None Adult General Chief Complaint Chief Complaint: WRIST PAIN [facility] HPI Patient is a 43 year old female who presents with patient states last night she was getting up to the restroom about 100 when she tripped and caught herself with her right hand and wrist injuring it. She has pain to the radial side of the right wrist and pain on dorsal hand at the base of thumb and radial side of the hand. Patient rates her pain a 9 out of 10. Patient states she took 2 Tylenols last night and did not help. Review of Systems Review of Systems Constitutional: Denies fever or chills [] Eyes: Denies change in visual acuity, redness, or eye pain [] HENT: Denies nasal congestion or sore throat [] Respiratory: Denies cough or shortness of breath [] Cardiovascular: No additional information not addressed in HPI [] GI: Denies abdominal pain, nausea, vomiting, bloody stools or diarrhea [] : Denies dysuria or hematuria [] Musculoskeletal: Denies back pain or right wrist joint pain [] Integument: Denies rash or skin lesions [] Neurologic: Denies headache, focal weakness or sensory changes [] All other systems were reviewed and found to be within normal limits, except as documented in this note. Current Medications Current Medications Current Medications Medications (Trade) Dose Ordered Sig/Bret Start Time Stop Time Status Last Admin Dose Admin Acetaminophen/ Hydrocodone Bitart (Lortab 5/325) 1 tab 1X ONCE 01/06/19 11:45 01/06/19 11:46 DC 01/06/19 11:53 1 TAB Allergies Allergies Allergies Coded Allergies Type Severity Reaction Last Updated Verified Penicillins Allergy Intermediate 04/12/15 Yes ibuprofen Allergy Intermediate 04/12/15 Yes ketorolac Allergy Intermediate 04/12/15 Yes prednisolone Allergy Intermediate 04/12/15 Yes red dye Allergy Intermediate 04/12/15 Yes tramadol Allergy Intermediate 01/06/19 Yes Physical Exam Physical Exam Constitutional: Well developed, well nourished, no acute distress, non-toxic appearance. [] HENT: Normocephalic, atraumatic, bilateral external ears normal, oropharynx moist, no oral exudates, nose normal. [] Eyes: PERRLA, EOMI, conjunctiva normal, no discharge. [] Neck: Normal range of motion, no tenderness, supple, no stridor. [] Cardiovascular:Heart rate regular rhythm, no murmur [] Lungs & Thorax: Bilateral breath sounds clear to auscultation [] Abdomen: Bowel sounds normal, soft, no tenderness, no masses, no pulsatile masses. [] Skin: Warm, dry, no erythema, no rash. [] Back: No tenderness, no CVA tenderness. [] Extremities: Right distal hand and wrist radial sided tenderness, no cyanosis, no clubbing, right wrist and thumb ROM at intact, no edema. [] Neurologic: Alert and oriented X 3, normal motor function, normal sensory function, no focal deficits noted. [] Psychologic: Affect normal, judgement normal, mood normal. [] Current Patient Data Vital Signs Vital Signs Date Time Temp Pulse Resp B/P (MAP) Pulse Ox O2 Delivery O2 Flow Rate FiO2 01/06/19 11:15 97.8 100 18 145/81 (102) Room Air 97.8 EKG EKG [] Radiology/Procedures Radiology/Procedures [] Impressions: [facility] [address] [place], [place] [id number] IMAGING REPORT Signed PATIENT: COREEN MA ACCOUNT: [id number] : 1975 LOCATION: ER AGE: 43 SEX: F EXAM STATUS: REG ER ORD. PHYSICIAN: AMEE BROWN APRN REASON: pain, injury PROCEDURE: WRIST 3V RIGHT WRIST 3V RIGHT, HAND RIGHT 3V History: RIGHT WRIST PAIN AFTER FALL. Three-view right wrist No evidence of acute fracture or dislocation. No significant soft tissue abnormality. 3 view right hand Small subchondral lucencies at the distal scaphoid are likely cysts. No evidence of acute fracture. No dislocation. No significant soft tissue abnormality. IMPRESSION: No evidence of acute fracture or dislocation. If symptoms persist, consider outpatient MRI. Electronically signed by: Franky Cueva MD (01/06/2019 12:15 PM) [facility] DICTATED and SIGNED BY: FRANKY CUEVA MD DATE: 01/06/19 1215 Course & Med Decision Making Course & Med Decision Making Patient is a 43 year old female who presents with patient states last night she was getting up to the restroom about 100 when she tripped and caught herself with her right hand and wrist injuring it. She has pain to the radial side of the right wrist and pain on dorsal hand at the base of thumb and radial side of the hand. Patient rates her pain a 9 out of 10. Patient states she took 2 Tylenols last night and did not help. There is no swelling to the hand or wrist joint. Patient has some movement of her thumb and wrist but is very painful. Radial pulse present. Less than 3 second cap refill. Tenderness to the dorsal hand at the radial side below the thumb and radial side of the wrist. Alert and oriented. Ambulatory with a steady gait. Patient denies any other injuries. Hand and Wrist xray shows no acute findings. Patient likely has a hand and wrist sprain or contusion. Patient will continue using her Edi wrap. Patient follow-up with her primary care provider this week if not getting better. Dragon Disclaimer Dragon Disclaimer This electronic medical record was generated, in whole or in part, using a voice recognition dictation system. Departure Departure Impression: Primary Impression: Sprain of hand Additional Impression: Wrist sprain Disposition: 01 HOME, SELF-CARE Condition: STABLE Referrals: MAXINE MONCADA MD (PCP) Patient Instructions: Wrist Sprain with [facility] Additional Instructions: Patient to continue using her Edi wrap. Patient follow-up with her primary care provider this week if not getting better. Try using ice to help with pain. Take medication as prescribed. Scripts Hydrocodone/Apap 5-325 (NORCO 5-325 TABLET) 1 Each Tablet 1 TAB PO PRN Q6HRS PRN for PAIN, #6 TAB 0 Refills Prov: AMEE BROWN APRN 01/06/19 Problem Qualifiers Primary Impression: Sprain of hand Encounter type: initial encounter Laterality: right Qualified Codes: S63.91XA - Sprain of unspecified part of right wrist and hand, initial encounter Additional Impression: Wrist sprain Encounter type: initial encounter Laterality: right Qualified Codes: S63.501A - Unspecified sprain of right wrist, initial encounter AMEE BROWN APRN Jan 06, 2019 11:45
--- NOTE | 2019-01-06 12:18 | RAD ---
WRIST 3V RIGHT, HAND RIGHT 3V History: RIGHT WRIST PAIN AFTER FALL. Three-view right wrist No evidence of acute fracture or dislocation. No significant soft tissue abnormality. 3 view right hand Small subchondral lucencies at the distal scaphoid are likely cysts. No evidence of acute fracture. No dislocation. No significant soft tissue abnormality. IMPRESSION: No evidence of acute fracture or dislocation. If symptoms persist, consider outpatient MRI. Electronically signed by: Franky Cueva MD (01/06/2019 12:15 PM) [facility]
[2019-01-06] MEDS ORDERED: HYDR-3164 PO (12:36)
== END 2019-01-06 12:44 | disposition home or self-care (01) ==
LOC: ER 11:13
DX: S63.91XA Sprain of unspecified part of right wrist and hand, initial encounter (principal); J44.9 Chronic obstructive pulmonary disease, unspecified; E11.9 Type 2 diabetes mellitus without complications; E78.00 Pure hypercholesterolemia, unspecified; G89.29 Other chronic pain; Z86.73 Personal history of transient ischemic attack (TIA), and cerebral infarction without residual deficits; Z88.0 Allergy status to penicillin; Z88.5 Allergy status to narcotic agent; Z91.041 Radiographic dye allergy status; Z88.6 Allergy status to analgesic agent; W18.49XA Other slipping, tripping and stumbling without falling, initial encounter; Y93.89 Activity, other specified; Y92.89 Other specified places as the place of occurrence of the external cause; Y99.8 Other external cause status
CPT/HCPCS: 73110; 73130; 99283

== ENCOUNTER 2019-01-08 20:26 | Emergency (ER) | payer OTHER ==
[~2019-01-08] VITALS: Ht 157.5 cm; Wt 95.3 kg
[~2019-01-08 20:26] MED LIST changes: +HYDR-3164 PO
[2019-01-08 23:24] LABS: BASO # 0.1 x10^3/uL (0.0-0.2); BASO % 1 % (0-3); EOS % 0 % (0-3); HEMATOCRIT 49.5 % (36.0-47.0); HEMOGLOBIN 16.7 g/dL (12.0-15.5); LYMPH # 4.6 x10^3/uL (1.0-4.8); LYMPH % 26 % (24-48); MEAN CORPUSCULAR HEMOGLOBIN 31 pg (25-35); MEAN CORPUSCULAR HGB CONC 34 g/dL (31-37); MEAN CORPUSCULAR VOLUME 92 fL (79-100); MONO # 0.8 x10^3/uL (0.0-1.1); MONO % 5 % (0-9); NEUT % 68 % (31-73); PLATELET COUNT 371 x10^3/uL (140-400); RED BLOOD COUNT 5.38 x10^6/uL (3.50-5.40); RED CELL DISTRIBUTION WIDTH 13.2 % (11.5-14.5); WHITE BLOOD COUNT 17.6 x10^3/uL (4.0-11.0)
[2019-01-08 23:25] LABS: BILIRUBIN,URINE NEGATIVE (NEG); CLARITY,URINE CLEAR; COLOR,URINE YELLOW; NITRITE,URINE NEGATIVE (NEG); PROTEIN,URINE NEGATIVE (NEG-TRACE); UROBILINOGEN,URINE 0.2 mg/dL (0.2 mg/dL)
[2019-01-08 23:32] LABS: BACTERIA,URINE FEW /HPF (0-FEW); RBC,URINE 0 /HPF (0-2); SQUAMOUS EPITHELIAL CELL,UR FEW /LPF; WBC,URINE 0 /HPF (0-4); YEAST,URINE PRESENT /HPF
[2019-01-08 23:38] LABS: ALBUMIN 3.8 g/dL (3.4-5.0); ALBUMIN/GLOBULIN RATIO 1.1 (1.0-1.7); CALCIUM 8.4 mg/dL (8.5-10.1); GFR 60.5; POTASSIUM 3.5 mmol/L (3.5-5.1); TOTAL BILIRUBIN 0.5 mg/dL (0.2-1.0); TOTAL PROTEIN 7.3 g/dL (6.4-8.2)
[2019-01-08] MEDS ORDERED: INSULIN REGULAR 100 UNIT/ML 3ML VIAL. IV ONE (23:45)
[2019-01-08] MEDS ORDERED: IOHEXOL 300 MG/ML 100ML VIAL. IV ONE (23:45)
[2019-01-08] MEDS ORDERED: CONTRAST GIVEN. MC PRN (23:45)
[2019-01-08] MEDS ORDERED: IV NORMAL SALINE 1000ML BAG 1,000 ML IV ONE (23:45)
--- NOTE | 2019-01-09 00:15 | RAD ---
PQRS Compliance statement: One or more of the following individualized dose reduction techniques were utilized for this examination: 1. Automated exposure control. 2. Adjustment of the mA and/or kV according to patient size. 3. Use of iterative reconstruction technique. Indication:abd pain; Omni 300, 75ml TECHNIQUE: CT abdomen and pelvis with IV contrast with multiplanar reformats. COMPARISON: None FINDINGS: Heart is normal in size. No pericardial or pleural effusion. Patchy opacities are seen in the bilateral lower lobes. Liver, spleen, pancreas, adrenals and kidneys within normal limits. Status post cholecystectomy. No enlarged retroperitoneal or pelvic adenopathy. No free pelvic fluid or ascites. Evidence of intra-abdominal wall hernia repair. No bowel obstruction. Anteverted uterus. Urinary bladder within normal limits. No pneumoperitoneum. No suspicious bony lesion. IMPRESSION: 1. Bilateral lower lobe predominant patchy opacities most likely aspiration or infectious. 2. No bowel obstruction. 3. No nephrolithiasis or hydronephrosis. Electronically signed by: Gumaro Galeano DO (01/09/2019 12:12 AM) [facility]
[2019-01-09] MEDS ORDERED: LEVO750T31 PO (01:28)
--- NOTE | 2019-01-09 01:28 | PHYS DOC ---
Past Medical History Past Medical History: Asthma, COPD, CVA, Diabetes-Type II, High Cholesterol Additional Past Medical Histor: degenerative joint disease, chronic pain Past Surgical History: Other Additional Past Surgical Histo: unk Alcohol Use: None Drug Use: None Adult General Chief Complaint Chief Complaint: HEMORRHOIDS HPI HPI Patient is a 43 year old female who presents to the emergency department today accompanied by her fianc, with complaints of hemorrhoids and low back pain. she denies any known injury to her back and reports that she feels the back pain is due to the hemorrhoids. Patient states she has had blood streaked stools this evening after having several episodes of diarrhea today. Pt also complains of lower abdominal pain. She denies any nausea, vomiting, dysuria, hematuria, Patient currently rates her pain and 8/10 on the pain scale, she denies any alleviating factors. patient states she is a type II diabetic, she denies any recent problems with her blood sugar but admits that she does not check it regularly. Review of Systems Review of Systems Constitutional: Denies fever or chills [] Eyes: Denies change in visual acuity, redness, or eye pain [] HENT: Denies nasal congestion or sore throat [] Respiratory: Denies cough or shortness of breath [] Cardiovascular: No additional information not addressed in HPI [] GI: See HPI : Denies dysuria or hematuria [] Musculoskeletal: See HPI Integument: Denies rash or skin lesions [] Neurologic: Denies headache, focal weakness or sensory changes [] Endocrine: Denies polyuria or polydipsia [] Complete systems were reviewed and found to be within normal limits, except as documented in this note. Current Medications Current Medications Current Medications Medications (Trade) Dose Ordered Sig/Bret Start Time Stop Time Status Last Admin Dose Admin Info (CONTRAST GIVEN -- Rx MONITORING) 1 each PRN DAILY PRN 01/08/19 23:45 01/09/19 01:53 DC Insulin Human Regular (HumuLIN R VIAL) 8 unit 1X ONCE 01/08/19 23:45 01/08/19 23:49 DC 01/09/19 00:12 8 UNIT Iohexol (Omnipaque 300 Mg/ml) 100 ml STK-MED ONCE 01/09/19 04:23 01/09/19 04:24 DC Sodium Chloride 1,000 ml @ 1,000 mls/hr 1X ONCE 01/08/19 23:45 01/09/19 00:44 DC 01/09/19 00:11 1,000 MLS/HR Allergies Allergies Allergies Coded Allergies Type Severity Reaction Last Updated Verified Penicillins Allergy Intermediate 04/12/15 Yes ibuprofen Allergy Intermediate 04/12/15 Yes ketorolac Allergy Intermediate 04/12/15 Yes prednisolone Allergy Intermediate 04/12/15 Yes red dye Allergy Intermediate 04/12/15 Yes tramadol Allergy Intermediate 01/06/19 Yes Physical Exam Physical Exam Constitutional: Well developed, well nourished, no acute distress, non-toxic appearance, obese[] HENT: Normocephalic, atraumatic, bilateral external ears normal, oropharynx moist, no oral exudates, nose normal. [] Eyes: PERRLA, conjunctiva normal, no discharge. [] Neck: Normal range of motion, no stridor. [] Cardiovascular:Heart rate regular rhythm, no murmur [] Lungs & Thorax: Bilateral breath sounds clear to auscultation upper lobes bilat eral, diminished posterior bases bilateral [] Abdomen: Bowel sounds normal, soft, no tenderness, no masses, no pulsatile masses. [] Skin: Warm, dry, no erythema, no rash. [] Back: No bony tenderness, no CVA tenderness. [] Extremities: No cyanosis, ROM intact, no edema, no deformities. Neurologic: Alert and oriented X 3, no focal deficits noted. [] Psychologic: Affect normal, judgement normal, mood normal. [] Current Patient Data Vital Signs Lab Values Laboratory Tests Test 01/08/19 21:01 01/08/19 21:19 01/08/19 23:15 01/09/19 00:52 Urine Collection Type Unknown Urine Color Yellow Urine Clarity Clear Urine pH 6.0 Urine Specific [place] >=1.030 Urine Protein Negative mg/dL (NEG-TRACE) Urine Glucose (UA) >=1000 mg/dL (NEG) Urine Ketones (Stick) Negative mg/dL (NEG) Urine Blood Negative (NEG) Urine Nitrite Negative (NEG) Urine Bilirubin Negative (NEG) Urine Urobilinogen Dipstick 0.2 mg/dL (0.2 mg/dL) Urine Leukocyte Esterase Negative (NEG) Urine RBC 0 /HPF (0-2) Urine WBC 0 /HPF (0-4) Urine Squamous Epithelial Cells Few /LPF Urine Bacteria Few /HPF (0-FEW) Urine Yeast Present /HPF POC Urine HCG, Qualitative Hcg negative (Negative) White Blood Count 17.6 x10^3/uL (4.0-11.0) H Red Blood Count 5.38 x10^6/uL (3.50-5.40) Hemoglobin 16.7 g/dL (12.0-15.5) H Hematocrit 49.5 % (36.0-47.0) H Mean Corpuscular Volume 92 fL (79-100) Mean Corpuscular Hemoglobin 31 pg (25-35) Mean Corpuscular Hemoglobin Concent 34 g/dL (31-37) Red Cell Distribution Width 13.2 % (11.5-14.5) Platelet Count 371 x10^3/uL (140-400) Neutrophils (%) (Auto) 68 % (31-73) Lymphocytes (%) (Auto) 26 % (24-48) Monocytes (%) (Auto) 5 % (0-9) Eosinophils (%) (Auto) 0 % (0-3) Basophils (%) (Auto) 1 % (0-3) Neutrophils # (Auto) 12.0 x10^3uL (1.8-7.7) H Lymphocytes # (Auto) 4.6 x10^3/uL (1.0-4.8) Monocytes # (Auto) 0.8 x10^3/uL (0.0-1.1) Eosinophils # (Auto) 0.0 x10^3/uL (0.0-0.7) Basophils # (Auto) 0.1 x10^3/uL (0.0-0.2) Sodium Level 133 mmol/L (136-145) L Potassium Level 3.5 mmol/L (3.5-5.1) Chloride Level 94 mmol/L (98-107) L Carbon Dioxide Level 27 mmol/L (21-32) Anion Gap 12 (6-14) Blood Urea Nitrogen 9 mg/dL (7-20) Creatinine 1.0 mg/dL (0.6-1.0) Estimated GFR (Cockcroft-Gault) 60.5 BUN/Creatinine Ratio 9 (6-20) Glucose Level 528 mg/dL (70-99) *H Calcium Level 8.4 mg/dL (8.5-10.1) L Total Bilirubin 0.5 mg/dL (0.2-1.0) Aspartate Amino Transferase (AST) 16 U/L (15-37) Alanine Aminotransferase (ALT) 38 U/L (14-59) Alkaline Phosphatase 170 U/L (46-116) H Total Protein 7.3 g/dL (6.4-8.2) Albumin 3.8 g/dL (3.4-5.0) Albumin/Globulin Ratio 1.1 (1.0-1.7) Lipase 179 U/L (73-393) Glucose (Fingerstick) 299 mg/dL (70-99) H Laboratory Tests 01/08/19 23:15 Laboratory Tests 01/08/19 23:15 EKG EKG [] Radiology/Procedures Radiology/Procedures PROCEDURE: CT ABD PELV W/ IV CONTRST ONLY PQRS Compliance statement: One or more of the following individualized dose reduction techniques were utilized for this examination: 1. Automated exposure control. 2. Adjustment of the mA and/or kV according to patient size. 3. Use of iterative reconstruction technique. Indication:abd pain; Omni 300, 75ml TECHNIQUE: CT abdomen and pelvis with IV contrast with multiplanar reformats. COMPARISON: None FINDINGS: Heart is normal in size. No pericardial or pleural effusion. Patchy opacities are seen in the bilateral lower lobes. Liver, spleen, pancreas, adrenals and kidneys within normal limits. Status post cholecystectomy. No enlarged retroperitoneal or pelvic adenopathy. No free pelvic fluid or ascites. Evidence of intra-abdominal wall hernia repair. No bowel obstruction. Anteverted uterus. Urinary bladder within normal limits. No pneumoperitoneum. No suspicious bony lesion. IMPRESSION: 1. Bilateral lower lobe predominant patchy opacities most likely aspiration or infectious. 2. No bowel obstruction. 3. No nephrolithiasis or hydronephrosis.[] Course & Med Decision Making Course & Med Decision Making Pertinent Labs and Imaging studies reviewed. (See chart for details) [] Dragon Disclaimer Dragon Disclaimer This electronic medical record was generated, in whole or in part, using a voice recognition dictation system. Departure Departure Impression: Primary Impression: Pneumonia Additional Impressions: Abdominal pain Diarrhea Disposition: 01 HOME, SELF-CARE Condition: STABLE Referrals: MAXINE MONCADA MD (PCP) Patient Instructions: Diarrhea, [id number], Diet for Diarrhea, Adult, Pneumonia, Adult Additional Instructions: Fill the prescription and use it as directed. Increase clear fluids, do not take antidiarrheal medications to stop the diarrhea. Follow-up with her primary care doctor in 1-2 days for recheck. Return to the ER if her symptoms worsen. Scripts Levofloxacin (LEVAQUIN) 750 Mg Tablet 1 TAB PO DAILY, #5 TAB 0 Refills Prov: BRIANNA BEAR APRN 01/09/19 Problem Qualifiers Primary Impression: Pneumonia Pneumonia type: due to unspecified organism Laterality: bilateral Lung location: lower lobe of lung Qualified Codes: J18.1 - Lobar pneumonia, unspecified organism Additional Impressions: Abdominal pain Abdominal location: lower abdomen, unspecified Qualified Codes: R10.30 - Lower abdominal pain, unspecified Diarrhea Diarrhea type: unspecified type Qualified Codes: R19.7 - Diarrhea, unspecified BRIANNA BEAR APRN Jan 09, 2019 01:28
[2019-01-09 01:52] VITALS: BP 85/67
[2019-01-09] MEDS ORDERED: IOHEXOL 300 MG/ML 100ML VIAL. ONE (04:23)
== END 2019-01-09 01:53 | disposition home or self-care (01) ==
LOC: ER 20:26
DX: J18.1 Lobar pneumonia, unspecified organism (principal); R10.30 Lower abdominal pain, unspecified; R19.7 Diarrhea, unspecified; J44.9 Chronic obstructive pulmonary disease, unspecified; E78.00 Pure hypercholesterolemia, unspecified; E11.9 Type 2 diabetes mellitus without complications; G89.29 Other chronic pain; Z86.73 Personal history of transient ischemic attack (TIA), and cerebral infarction without residual deficits; Z88.0 Allergy status to penicillin; Z88.5 Allergy status to narcotic agent; Z88.6 Allergy status to analgesic agent; Z91.041 Radiographic dye allergy status; Z88.8 Allergy status to other drugs, medicaments and biological substances
CPT/HCPCS: 36415; 74177; 80053; 81001; 81025; 82962; 83690; 85025; 96361; 96374; 99284; J1815; J7030; Q9967

== ENCOUNTER 2019-03-18 19:04 | Emergency (ER) | payer OTHER ==
[~2019-03-18] VITALS: Ht 157.5 cm; Wt 95.3 kg
[~2019-03-18 19:04] MED LIST changes: +LEVO750T31 PO
--- NOTE | 2019-03-18 19:48 | PHYS DOC ---
Past Medical History Past Medical History: Asthma, COPD, CVA, Diabetes-Type II, High Cholesterol Additional Past Medical Histor: degenerative joint disease, chronic pain (SID CONTRERAS APRN) Past Surgical History: Other Additional Past Surgical Histo: unk (SID CONTRERAS APRN) Alcohol Use: None Drug Use: None (SID CONTRERAS APRN) Adult General Chief Complaint Chief Complaint: URINARY FREQUENCY HPI HPI Patient is a 43 year old f] who presents with [1 day history of suprapubic abdominal pain with burning with urination. Patient reports she has had a history of UTIs in the past this feels just like. States her last was approximately 2-3 years ago. Patient denies any vaginal bleeding vaginal discharge visual pruritus. Reports she had tried some Tylenol and she had tried some tramadol for her discomfort but it did not change which she was feeling. Patient states she is pretty sure this is a urinary tract infection again. Denies frequency of urination just reports urgency and a little bit of discomfort] (SID CONTRERAS APRN) Review of Systems Review of Systems Constitutional: Denies fever or chills [] Eyes: Denies change in visual acuity, redness, or eye pain [] HENT: Denies nasal congestion or sore throat [] Respiratory: Reports cough for the past month after her recent treatment for pneumonia. Denies shortness of breath [] Cardiovascular: No additional information not addressed in HPI [] GI: Denies abdominal pain, nausea, vomiting, bloody stools or diarrhea [] : Reports increased frequency[] Musculoskeletal: Denies back pain or joint pain [] Integument: Denies rash or skin lesions [] Neurologic: Denies headache, focal weakness or sensory changes [] Endocrine: Denies polyuria or polydipsia [] All other systems were reviewed and found to be within normal limits, except as documented in this note. (SID CONTRERAS APRN) Allergies Allergies Allergies Coded Allergies Type Severity Reaction Last Updated Verified Penicillins Allergy Intermediate 04/12/15 Yes ibuprofen Allergy Intermediate 04/12/15 Yes ketorolac Allergy Intermediate 04/12/15 Yes prednisolone Allergy Intermediate 04/12/15 Yes red dye Allergy Intermediate 04/12/15 Yes tramadol Allergy Intermediate 01/06/19 Yes (ALEXIS GAMBLE DO) Physical Exam Physical Exam Constitutional: Well developed, well nourished, no acute distress, non-toxic appearance. [] HENT: Normocephalic, atraumatic, bilateral external ears normal, oropharynx moist, no oral exudates, nose normal. [] Eyes: PERRLA, EOMI, conjunctiva normal, no discharge. [] Neck: Normal range of motion, no tenderness, supple, no stridor. [] Cardiovascular:Heart rate regular rhythm, no murmur [] Lungs & Thorax: Bilateral breath sounds clear to auscultation intermittent coughing noted by patient.[] Abdomen: Bowel sounds normal, soft, minimal suprapubic tenderness, no masses, no pulsatile masses. [] Skin: Warm, dry, no erythema, no rash. [] Back: No tenderness, no CVA tenderness. [] Extremities: No tenderness, no cyanosis, no clubbing, ROM intact, no edema. [] Neurologic: Alert and oriented X 3, normal motor function, normal sensory function, no focal deficits noted. [] Psychologic: Affect normal, judgement normal, mood normal. [] (SID CONTRERAS APRN) Current Patient Data Vital Signs Vital Signs Date Time Temp Pulse Resp B/P (MAP) Pulse Ox O2 Delivery O2 Flow Rate FiO2 03/18/19 19:58 97.8 100 20 176/85 (115) 98 Room Air 97.8 (ALEXIS GAMBLE DO) Lab Values Laboratory Tests Test 03/18/19 19:50 03/18/19 21:20 Urine Collection Type Unknown Urine Color Yellow Urine Clarity Clear Urine pH 5.0 Urine Specific [place] >=1.030 Urine Protein Negative mg/dL (NEG-TRACE) Urine Glucose (UA) >=1000 mg/dL (NEG) Urine Ketones (Stick) Negative mg/dL (NEG) Urine Blood Negative (NEG) Urine Nitrite Negative (NEG) Urine Bilirubin Negative (NEG) Urine Urobilinogen Dipstick 0.2 mg/dL (0.2 mg/dL) Urine Leukocyte Esterase Negative (NEG) Urine RBC 0 /HPF (0-2) Urine WBC 1-4 /HPF (0-4) Urine Squamous Epithelial Cells Mod /LPF Urine Bacteria Few /HPF (0-FEW) Urine Yeast Present /HPF Glucose (Fingerstick) 555 mg/dL (70-99) *H (ALEXIS GAMBLE DO) Lab Values Laboratory Tests Test 03/18/19 19:50 Urine Collection Type Unknown Urine Color Yellow Urine Clarity Clear Urine pH 5.0 Urine Specific [place] >=1.030 Urine Protein Negative mg/dL (NEG-TRACE) Urine Glucose (UA) >=1000 mg/dL (NEG) Urine Ketones (Stick) Negative mg/dL (NEG) Urine Blood Negative (NEG) Urine Nitrite Negative (NEG) Urine Bilirubin Negative (NEG) Urine Urobilinogen Dipstick 0.2 mg/dL (0.2 mg/dL) Urine Leukocyte Esterase Negative (NEG) Urine RBC 0 /HPF (0-2) Urine WBC 1-4 /HPF (0-4) Urine Squamous Epithelial Cells Mod /LPF Urine Bacteria Few /HPF (0-FEW) Urine Yeast Present /HPF (SID CONTRERAS APRN) EKG EKG [] (SID CONTRERAS APRN) Radiology/Procedures Radiology/Procedures [] (SID CONTRERAS APRN) Course & Med Decision Making Course & Med Decision Making Pertinent Labs and Imaging studies reviewed. (See chart for details) [Discussed urine results patient discussed blood sugar results with patient recommending treatment for her hyperglycemia. Patient states she does not want a she wants to go home and will manage her high blood sugar at home. Reports she has had a lot of flush [place] her blood sugars over the past few months. States she has not taken her evening insulin yet. States she has had several episodes where her blood sugar has been in the past most recent episode was approximately a month ago while she was hospitalized. Patient advised that her blood sugars at a dangerous level. She needs to say she does not want to stay in the hospital she would rather go home because she has to start a new job tomorrow. Discussed treatment of yeast in her urine discussed informed the importance of follow-up and hydration and managing her blood sugar with her insulin. Patient is fussier with plan of care to discharge home] (SID CONTRERAS APRN) Dragon Disclaimer Dragon Disclaimer This electronic medical record was generated, in whole or in part, using a voice recognition dictation system. (SID CONTRERAS APRN) Departure Departure Impression: Primary Impression: Hyperglycemia Additional Impression: Yeast infection Disposition: 01 HOME, SELF-CARE Referrals: MAXINE MONCADA MD (PCP) Patient Instructions: Hyperglycemia, [id number] Additional Instructions: As we discussed it is imperative that she will manage her blood sugar better. Make sure you are watching when she eat. Initial you're taking her insulin as prescribed. She resting hydrated. As we discussed with you and your boyfriend. Blood sugar is high enough that it would require treatment in the hospital but you do not want to stay. Scripts Fluconazole (FLUCONAZOLE) 150 Mg Tablet 150 MG PO DAILY for 1 Day, #1 TAB Prov: SID CONTRERAS APRN 03/18/19 Attending Signature Attending Signature I have reviewed the PA/MANAGER PRESENTATION's note and plan of care. I was available for consultation as needed during the patient's visit in the emergency department. I agree with the clinical impression, plan, and disposition. (ALEXIS GAMBLE DO) Problem Qualifiers SID CONTRERAS APRN March 18, 2019 19:48 ALEXIS GAMBLE DO March 19, 2019 05:52
[2019-03-18 19:58] VITALS: BP 176/85
[2019-03-18 20:05] LABS: BILIRUBIN,URINE NEGATIVE (NEG); CLARITY,URINE CLEAR; COLOR,URINE YELLOW; NITRITE,URINE NEGATIVE (NEG); PROTEIN,URINE NEGATIVE (NEG-TRACE); UROBILINOGEN,URINE 0.2 mg/dL (0.2 mg/dL)
[2019-03-18 20:11] LABS: BACTERIA,URINE FEW /HPF (0-FEW); RBC,URINE 0 /HPF (0-2)
[2019-03-18 20:12] LABS: SQUAMOUS EPITHELIAL CELL,UR MOD /LPF; YEAST,URINE PRESENT /HPF
[2019-03-18] MEDS ORDERED: FLUC150T2 PO (21:34)
== END 2019-03-18 21:40 | disposition home or self-care (01) ==
LOC: ER 19:04
DX: E11.65 Type 2 diabetes mellitus with hyperglycemia (principal); B37.9 Candidiasis, unspecified; R10.30 Lower abdominal pain, unspecified; J44.9 Chronic obstructive pulmonary disease, unspecified; E78.00 Pure hypercholesterolemia, unspecified; Z86.73 Personal history of transient ischemic attack (TIA), and cerebral infarction without residual deficits; G89.29 Other chronic pain
CPT/HCPCS: 81001; 82962; 99284

== ENCOUNTER 2019-03-24 14:06 | Emergency (ER) | payer OTHER ==
[~2019-03-24] VITALS: Ht 157.5 cm; Wt 90.7 kg
[~2019-03-24 14:06] MED LIST changes: +FLUC150T2 PO
[2019-03-24 14:15] VITALS: BP 129/66
--- NOTE | 2019-03-24 16:18 | PHYS DOC ---
Past Medical History Past Medical History: Asthma, COPD, CVA, Diabetes-Type II, High Cholesterol Additional Past Medical Histor: degenerative joint disease, chronic pain Past Surgical History: Other Additional Past Surgical Histo: unk Additional Information: 1 ppd Alcohol Use: None Drug Use: None Adult General Chief Complaint Chief Complaint: LOWEREXTREMITY INJURY HPI HPI 43 y/o female presents to ER via POV for c/o lt lower leg injury. She reports around 1 AM her came to bed and accidentally laid on her left lower leg causing leg pain. She reports she has had anterior mid vargas pain which radiates down into her ankle. She reports she has been ambulatory without assistive device. She reports she has taken her prescribed meloxicam and baclofen. She denies wounds or other injury. Review of Systems Review of Systems Musculoskeletal: Reports lt mid lower leg pain into ankle Integument: Denies open wounds Neurologic: Denies focal weakness or sensory changes [] All other systems were reviewed and found to be within normal limits, except as documented in this note. Allergies Allergies Allergies Coded Allergies Type Severity Reaction Last Updated Verified Penicillins Allergy Intermediate 04/02/19 Yes acetaminophen Allergy Intermediate Unknown 04/02/19 Yes ibuprofen Allergy Intermediate 04/02/19 Yes ketorolac Allergy Intermediate 04/02/19 Yes oxycodone Allergy Intermediate Unknown 04/02/19 Yes prednisolone Allergy Intermediate 04/02/19 Yes red dye Allergy Intermediate 04/02/19 Yes tramadol Allergy Intermediate 04/02/19 Yes Physical Exam Physical Exam Constitutional: Well developed, well nourished, no acute distress, non-toxic appearance. [] HENT: Normocephalic, atraumatic, oropharynx moist, nose normal. [] Eyes: Pupils equal, conjunctiva normal, no discharge. [] Neck: Normal range of motion, supple Cardiovascular:Heart rate regular Lungs & Thorax: Resp. equal/nonlabored Skin: Warm, dry, no erythema, no rash. [] Back: No tenderness, full ROM Extremities: No cyanosis, no clubbing, ROM intact, no edema. Tender lt mid lower anterior vargas- no ecchymosis/visible injury. 2+ dorsalis pedis and posterior tibial Neurologic: Alert and oriented X 3, normal motor function, normal sensory function, no focal deficits noted. [] Psychologic: Affect normal, judgement normal, mood normal. [] Current Patient Data Vital Signs Vital Signs Date Time Temp Pulse Resp B/P (MAP) Pulse Ox O2 Delivery O2 Flow Rate FiO2 03/24/19 14:15 98.1 96 22 129/66 (87) 98 Room Air 98.1 EKG EKG [] Radiology/Procedures Radiology/Procedures [] Course & Med Decision Making Course & Med Decision Making Pertinent Imaging studies reviewed. (See chart for details) Patient was evaluated in the ER for left lower leg injury. X-rays were obtained and reviewed by Dr. Arnold with no obvious displaced fracture/normally. This was discussed with patient. Will have nirmal wrap applied to left vargas and ankle. Patient has prescribed meloxicam and baclofen for pain and she was advised on Rice acronym. She remains PMS intact in left lower extremity. Education provided on signs and symptoms to return to ER. Discharge instructions were discussed. Patient to follow-up with primary care physician and/or orthopedics if symptoms persist or with any concerns. Dragon Disclaimer Dragon Disclaimer This electronic medical record was generated, in whole or in part, using a voice recognition dictation system. Departure Departure Impression: Primary Impression: Contusion of leg, left Disposition: 01 HOME, SELF-CARE Condition: STABLE Referrals: MAXINE MONCADA MD (PCP) MIRELA RAVI MD Patient Instructions: Contusion, Crutch Use, [id number], Elastic Bandage and RICE Additional Instructions: If symptoms persist follow-up with your primary care physician and/or an orthopedic doctor for reevaluation and further care. Ice pack to affected area every 3-4 hours for 20-30 minutes at a time. Continue your prescribed medications as directed. ASHELY LOFTON [employer] March 24, 2019 16:17
--- NOTE | 2019-03-24 17:16 | RAD ---
AP and lateral left tibia and fibula radiographs to include 3 view radiographs of the left ankle 03/24/2019 CLINICAL HISTORY: Injury to the left leg/left ankle. Two AP and a lateral digital radiographs of the left tibia and fibula were obtained. AP, lateral and oblique digital radiographs of the left ankle were obtained. No fracture or dislocation of the left tibia or fibula is seen. The left ankle mortise is intact. No fracture or dislocation of the left ankle is seen. Mild degenerative changes are seen involving the left ankle. Mild to moderate enthesophyte formation seen involving the posterior aspect of the left calcaneus. IMPRESSION: No fracture or dislocation is seen. Electronically signed by: Smooth Singh MD (03/24/2019 5:13 PM) [facility]
== END 2019-03-24 16:33 | disposition home or self-care (01) ==
LOC: ER 15:06
DX: S80.12XA Contusion of left lower leg, initial encounter (principal); E11.9 Type 2 diabetes mellitus without complications; J44.9 Chronic obstructive pulmonary disease, unspecified; E78.00 Pure hypercholesterolemia, unspecified; G89.29 Other chronic pain; Z86.73 Personal history of transient ischemic attack (TIA), and cerebral infarction without residual deficits; F17.200 Nicotine dependence, unspecified, uncomplicated; Z88.0 Allergy status to penicillin; Z88.6 Allergy status to analgesic agent; Z88.5 Allergy status to narcotic agent; Z91.041 Radiographic dye allergy status; Z88.8 Allergy status to other drugs, medicaments and biological substances; X50.0XXA Overexertion from strenuous movement or load, initial encounter; Y93.89 Activity, other specified; Y92.89 Other specified places as the place of occurrence of the external cause; Y99.8 Other external cause status
CPT/HCPCS: 73590; 73610; 99284

== ENCOUNTER 2019-04-02 13:20 | Emergency (ER) | payer OTHER ==
[~2019-04-02] VITALS: Ht 157.5 cm; Wt 89.8 kg
[2019-04-02 13:56] LABS: BILIRUBIN,URINE NEGATIVE (NEG); CLARITY,URINE CLEAR; COLOR,URINE YELLOW; NITRITE,URINE NEGATIVE (NEG); PH,URINE 6.5; PROTEIN,URINE NEGATIVE (NEG-TRACE); UROBILINOGEN,URINE 0.2 mg/dL (0.2 mg/dL)
[2019-04-02 14:02] LABS: BACTERIA,URINE 0 /HPF (0-FEW); RBC,URINE OCC /HPF (0-2); SQUAMOUS EPITHELIAL CELL,UR OCC /LPF
--- NOTE | 2019-04-02 14:05 | PHYS DOC ---
Past Medical History Past Medical History: Asthma, COPD, CVA, Depression, Diabetes-Type II, High Cholesterol, Seizure Additional Past Medical Histor: degenerative joint disease, chronic pain Past Surgical History: Appendectomy, Cholecystectomy, Tonsillectomy, Tubal ligation, Other Additional Past Surgical Histo: hernia repair x 3 Additional Information: pack/day Alcohol Use: None Drug Use: None Adult General Chief Complaint Chief Complaint: VAGINAL BLEEDING HPI HPI 43-year-old female presents to ER with complaints of lower abdominal pain and intermittent vaginal bleeding after she has sexual intercourse. Patient states LMP was 03/22/19 and ended the day before . She denies any abnormal bleeding. She reports she has felt slightly nauseated with episode of vomiting last night. She denies any nausea currently. Patient states she's had no vaginal bleeding today and is denying any urinary symptoms. Patient denies vaginal discharge or concerns for STDs. Patient denies previous history of ovarian cysts. Patient has had tubal ligation in past. Review of Systems Review of Systems Constitutional: Denies fever or chills [] Eyes: Denies change in visual acuity, redness, or eye pain [] HENT: Denies nasal congestion or sore throat [] Respiratory: Denies cough or shortness of breath [] Cardiovascular: No additional information not addressed in HPI [] GI: Denies bloody stools or diarrhea. Reports LLQ pain with intermittent nausea and 1 episode vomiting last night. : Denies dysuria or hematuria. Reports intermittent vag. bleeding after sexual intercourse- denies current bleeding or vaginal discharge Musculoskeletal: Denies back pain or joint pain [] Integument: Denies rash or skin lesions [] Neurologic: Denies headache, focal weakness or sensory changes. Denies dizziness All other systems were reviewed and found to be within normal limits, except as documented in this note. Allergies Allergies Allergies Coded Allergies Type Severity Reaction Last Updated Verified Penicillins Allergy Intermediate 04/02/19 Yes acetaminophen Allergy Intermediate Unknown 04/02/19 Yes ibuprofen Allergy Intermediate 04/02/19 Yes ketorolac Allergy Intermediate 04/02/19 Yes oxycodone Allergy Intermediate Unknown 04/02/19 Yes prednisolone Allergy Intermediate 04/02/19 Yes red dye Allergy Intermediate 04/02/19 Yes tramadol Allergy Intermediate 04/02/19 Yes Physical Exam Physical Exam Constitutional: Well developed, well nourished, no acute distress, non-toxic appearance. [] HENT: Normocephalic, atraumatic, oropharynx moist, nose normal. [] Eyes: Pupils equal, conjunctiva normal, no discharge. [] Neck: Normal range of motion, no tenderness, supple, no stridor. [] Cardiovascular: Heart rate regular rhythm, no murmur [] Lungs & Thorax: Bilateral breath sounds clear to auscultation- resp. equal/nonlabored Abdomen: Bowel sounds normal, soft- no distention or rigidity, tender patient suprapubic area into left lower abdomen, no masses, no pulsatile masses. [] Skin: Warm, dry, no erythema, no rash. [] Back: No tenderness, no CVA tenderness. [] Extremities: No tenderness, no cyanosis, no clubbing, ROM intact, no edema. [] Neurologic: Alert and oriented X 3, normal motor function, normal sensory function, no focal deficits noted. [] Psychologic: Affect normal, judgement normal, mood normal. [] Current Patient Data Vital Signs Vital Signs Date Time Temp Pulse Resp B/P (MAP) Pulse Ox O2 Delivery O2 Flow Rate FiO2 04/02/19 15:30 68 18 112/56 (74) 96 Room Air 04/02/19 13:30 98.2 98.2 Lab Values Laboratory Tests Test 04/02/19 13:30 04/02/19 13:34 Urine Color Yellow Urine Clarity Clear Urine pH 6.5 Urine Specific [place] >=1.030 Urine Protein Negative mg/dL (NEG-TRACE) Urine Glucose (UA) >=1000 mg/dL (NEG) Urine Ketones (Stick) Negative mg/dL (NEG) Urine Blood Negative (NEG) Urine Nitrite Negative (NEG) Urine Bilirubin Negative (NEG) Urine Urobilinogen Dipstick 0.2 mg/dL (0.2 mg/dL) Urine Leukocyte Esterase Negative (NEG) Urine RBC Occ /HPF (0-2) Urine WBC 1-4 /HPF (0-4) Urine Squamous Epithelial Cells Occ /LPF Urine Bacteria 0 /HPF (0-FEW) POC Urine HCG, Qualitative Hcg negative (Negative) Microbiology 04/02/19 Wet Prep - Final, Complete EKG EKG [] Radiology/Procedures Radiology/Procedures Pelvic Exam: EDT Range Conservationist present @ 1450 Abdomen: Nontender on palpation suprapubic into left lower abdomen External Genitalia: Normal Skin- no lesions or rash Speculum: Normal vaginal mucosa, normal cervical discharge- scant amount thin white vaginal discharge- no odor. Cervical os is closed. Vaginal bleeding or clots/tissue in vaginal vault Bimanual: No adnexal masses, No CMT. Tender suprapubic and left lower abdomen- no palpable mass PROCEDURE: PELVIS W/TV EXAM: Pelvic sonogram. HISTORY: Pain. TECHNIQUE: Transabdominal and transvaginal sonographic imaging of the abdomen and pelvis was performed. COMPARISON: None. FINDINGS: The uterus measures 8.6 x 2.9 x 3.2 cm. The endometrial stripe measures 7.6 mm in thickness. The ovaries are normal in size and demonstrate normal blood flow. No adnexal mass or fluid collection is seen. There is a nabothian cyst within the cervix. IMPRESSION: Relatively unremarkable pelvic sonogram. Electronically signed by: Selam Hernandez MD (04/02/2019 4:16 PM) [facility] DICTATED and SIGNED BY: SELAM HERNANDEZ MD DATE: 04/02/19 161 Course & Med Decision Making Course & Med Decision Making Pertinent Labs and Imaging studies reviewed. (See chart for details) Pt was evaluated in the ER for complaints of intermittent vaginal bleeding which is been occurring following sexual intercourse. Patient had no vaginal bleeding while in the ER or on findings with her pelvic exam. Patient had wet mount showing positive yeast and findings suggestive of BV this was discussed with patient. Bimanual exam patient had tenderness in suprapubic and left lower abdomen so ultrasound was obtained with no acute findings. UA negative for UTI and UCG was negative. Discussed home d/c plans with Rx for Diflucan and Flagyl. Patient educated on need for follow-up with [employer] if symptoms persist and for reevaluation. Education provided on signs and symptoms to return to ER. Discharge instructions were discussed. Pt to f/u with PCP as needed. Dragon Disclaimer Dragon Disclaimer This electronic medical record was generated, in whole or in part, using a voice recognition dictation system. Departure Departure Impression: Primary Impression: Vaginal yeast infection Additional Impression: Bacterial vaginosis Disposition: HOME, SELF-CARE Condition: STABLE Referrals: MAXINE MONCADA MD (PCP) Patient Instructions: Abdominal Pain, Bacterial Vaginosis, Kylie Infection, Adult Additional Instructions: On exam you had no vaginal bleeding. If these symptoms persist follow-up with [employer] for reevaluation and further care. If symptoms occur after sexual intercourse allow pelvic rest and avoid insertion of anything vaginal until symptoms improve. Follow-up with your primary care physician for reevaluation and further care as needed. Home prescriptions as prescribed for pain. Scripts Metronidazole (FLAGYL) 500 Mg Tablet 1 TAB PO BID, #14 TAB 0 Refills Prov: ASHELY LOFTON APRN 04/02/19 Fluconazole (DIFLUCAN) 150 Mg Tablet 1 TAB PO ONCE, #1 TAB 0 Refills Prov: ASHELY LOFTON APRN 04/02/19 Problem Qualifiers ASHELY LOFTON APRN Apr 02, 2019 14:05
[2019-04-02 15:30] VITALS: BP 112/56
--- NOTE | 2019-04-02 16:19 | RAD ---
EXAM: Pelvic sonogram. HISTORY: Pain. TECHNIQUE: Transabdominal and transvaginal sonographic imaging of the abdomen and pelvis was performed. COMPARISON: None. FINDINGS: The uterus measures 8.6 x 2.9 x 3.2 cm. The endometrial stripe measures 7.6 mm in thickness. The ovaries are normal in size and demonstrate normal blood flow. No adnexal mass or fluid collection is seen. There is a nabothian cyst within the cervix. IMPRESSION: Relatively unremarkable pelvic sonogram. Electronically signed by: Selam Hernandez MD (04/02/2019 4:16 PM) [facility]
[2019-04-02] MEDS ORDERED: FLUC150T PO (16:44)
[2019-04-02] MEDS ORDERED: METR500T PO (16:44)
[2019-04-03 16:11] LABS: GC PROBE Negative (Negative)
== END 2019-04-02 16:48 | disposition home or self-care (01) ==
LOC: ER 13:20
DX: N76.0 Acute vaginitis (principal); B96.89 Other specified bacterial agents as the cause of diseases classified elsewhere; B37.3 Candidiasis of vulva and vagina; R11.2 Nausea with vomiting, unspecified; J44.9 Chronic obstructive pulmonary disease, unspecified; E11.9 Type 2 diabetes mellitus without complications; E78.00 Pure hypercholesterolemia, unspecified; Z86.73 Personal history of transient ischemic attack (TIA), and cerebral infarction without residual deficits; G89.29 Other chronic pain; Z90.89 Acquired absence of other organs; Z90.49 Acquired absence of other specified parts of digestive tract; Z98.51 Tubal ligation status; F17.200 Nicotine dependence, unspecified, uncomplicated; Z88.0 Allergy status to penicillin; Z88.5 Allergy status to narcotic agent; Z88.6 Allergy status to analgesic agent; Z88.8 Allergy status to other drugs, medicaments and biological substances; Z91.041 Radiographic dye allergy status
CPT/HCPCS: 76830; 76856; 81001; 81025; 87491; 87591; 99285; Q0111

== ENCOUNTER 2019-06-02 19:42 | Emergency (ER) | payer OTHER ==
[2019-05-24 16:05] VITALS: BP 171/82
[~2019-06-02 19:42] MED LIST changes: +CLIN300C8 PO; +INSU100I11 SQ; +INSU100I13 SQ; +MELO7.5T29 PO; +METR500T PO; +SIMV40TA3 PO
== END 2019-06-02 19:50 | disposition left against medical advice (07) ==
LOC: ER 19:42
DX: M54.5 Low back pain (principal); Z53.21 Procedure and treatment not carried out due to patient leaving prior to being seen by health care provider

== ENCOUNTER 2019-06-14 14:22 | Emergency (ER) | payer OTHER ==
[~2019-06-14] VITALS: Ht 157.5 cm; Wt 84.8 kg
[2019-06-14 15:37] VITALS: BP 137/84
[2019-06-14] MEDS ORDERED: LIDOCAINE 1% PF 30 ML VIAL. INJ ONE (16:45)
[2019-06-14] MEDS ORDERED: SMZ/TMP 800/160MG TABLET. PO ONE (16:45)
[2019-06-14] MEDS ORDERED: ACET325T9 PO (17:40)
[2019-06-14] MEDS ORDERED: SULF1TAB24 PO (17:40)
--- NOTE | 2019-06-14 17:41 | PHYS DOC ---
Past Medical History Past Medical History: Asthma, COPD, CVA, Depression, Diabetes-Type II, High Cholesterol, Seizure Additional Past Medical Histor: degenerative joint disease, chronic pain Past Surgical History: Appendectomy, Cholecystectomy, Tonsillectomy, Tubal ligation, Other Additional Past Surgical Histo: hernia repair x 3 Alcohol Use: None Drug Use: None Adult General Chief Complaint Chief Complaint: ABSCESS HPI HPI Patient is a 43 year old female who presents to the ED today with left upper abdomen abscess that began 4 days ago. Denies any fever. Review of Systems Review of Systems Constitutional: Denies fever or chills [] Musculoskeletal: Denies back pain or joint pain [] Integument: Reports left upper abdomen abscess Neurologic: Denies headache, focal weakness or sensory changes [] All other systems were reviewed and found to be within normal limits, except as documented in this note. Current Medications Current Medications Current Medications Medications (Trade) Dose Ordered Sig/Bret Start Time Stop Time Status Last Admin Dose Admin Lidocaine HCl (Xylocaine 1% Pf 30ml Vial) 30 ml 1X ONCE 06/14/19 16:45 06/14/19 16:46 DC 06/14/19 16:44 30 ML Trimethoprim/ Sulfamethoxazole (Bactrim Ds) 1 tab 1X ONCE 06/14/19 16:45 06/14/19 16:46 DC 06/14/19 16:44 1 TAB Allergies Allergies Allergies Coded Allergies Type Severity Reaction Last Updated Verified Penicillins Allergy Intermediate 04/02/19 Yes ibuprofen Allergy Intermediate 04/02/19 Yes ketorolac Allergy Intermediate 04/02/19 Yes oxycodone Allergy Intermediate Unknown 04/02/19 Yes prednisolone Allergy Intermediate 04/02/19 Yes red dye Allergy Intermediate 04/02/19 Yes Physical Exam Physical Exam Constitutional: Well developed, well nourished, no acute distress, non-toxic appearance. [] Skin: Warm, dry, left upper abdomen with an area of induration approximately 3 x 3 cm, the area is fluctuant, erythematous, warm, tender to touch. Back: No tenderness, no CVA tenderness. [] Extremities: No tenderness, no cyanosis, no clubbing, ROM intact, no edema. [] Neurologic: Alert and oriented X 3, normal motor function, normal sensory function, no focal deficits noted. [] Psychologic: Affect normal, judgement normal, mood normal. [] Current Patient Data Vital Signs Vital Signs Date Time Temp Pulse Resp B/P (MAP) Pulse Ox O2 Delivery O2 Flow Rate FiO2 06/14/19 15:37 98.6 100 20 137/84 (101) 96 Room Air 98.6 EKG EKG [] Radiology/Procedures Radiology/Procedures Indication: abscess of the left upper abdomen Procedure: The patient was positioned appropriately. Local anesthesia was 1% of lidocaine. An incision was then made over the apex of the lesion with an 11 blade and moderate amount of yellow bloody material was expressed. The drainage cavity was irrigated and covered with sterile gauze. The patient�s tetanus status updated as needed. The patient tolerated the procedure well. Complications: none.[] Course & Med Decision Making Course & Med Decision Making Pertinent Labs and Imaging studies reviewed. (See chart for details) This is a 43-year-old female patient who presents to the ED for an abscess on the left upper abdomen that was drained by me as noted in procedures. Tetanus up-to-date. Discharged on Bactrim. She was asking for pain medications for home use specifically tramadol. Patient and are well known to this ED for drug seeking behavior. Informed her she can take Tylenol or Motrin as needed for pain. She has an appointment with the general surgeon next week for previous abscess of the neck follow-up Dragon Disclaimer Dragon Disclaimer This electronic medical record was generated, in whole or in part, using a voice recognition dictation system. Departure Departure Impression: Primary Impression: Abdominal abscess Disposition: HOME, SELF-CARE Condition: STABLE Referrals: MAXINE MONCADA MD (PCP) follow up with your doctor next week Patient Instructions: Abscess, Care After Additional Instructions: You were evaluated in the emergency room for left upper abdomen abscess that was drained. You can remove the dressing after 24 hours, keep the area clean and dry. Complete the prescribed antibiotics and follow-up with your own primary care doctor as well as general surgeon in a week. Scripts Acetaminophen (TYLENOL) 325 Mg Tablet 1-2 TAB PO QID, #60 TAB 2 Refills Prov: RAFAEL CINTRON APRN 06/14/19 Sulfamethoxazole/Trimethoprim (BACTRIM DS TABLET) 1 Each Tablet 1 TAB PO BID, #20 TAB Prov: RAFAEL CINTRON APRN 06/14/19 RAFAEL CINTRON APRN Jun 14, 2019 17:41
== END 2019-06-14 17:45 | disposition home or self-care (01) ==
LOC: ER 14:22
DX: L02.211 Cutaneous abscess of abdominal wall (principal); J44.9 Chronic obstructive pulmonary disease, unspecified; F32.9 Major depressive disorder, single episode, unspecified; E11.9 Type 2 diabetes mellitus without complications; E78.00 Pure hypercholesterolemia, unspecified; G89.29 Other chronic pain; Z90.89 Acquired absence of other organs; Z90.49 Acquired absence of other specified parts of digestive tract; Z98.51 Tubal ligation status; Z86.73 Personal history of transient ischemic attack (TIA), and cerebral infarction without residual deficits; Z88.8 Allergy status to other drugs, medicaments and biological substances; Z88.0 Allergy status to penicillin; Z88.5 Allergy status to narcotic agent; Z88.6 Allergy status to analgesic agent; Z91.041 Radiographic dye allergy status
CPT/HCPCS: 10060; 99283

== ENCOUNTER 2019-06-16 18:40 | Emergency (ER) | payer OTHER ==
[~2019-06-16] VITALS: Ht 157.5 cm; Wt 85.7 kg
[~2019-06-16 18:40] MED LIST changes: +ACET325T9 PO; +SULF1TAB24 PO
[2019-06-16 19:29] VITALS: BP 120/69
[2019-06-16] MEDS ORDERED: MUPI22OI2 TP (20:04)
--- NOTE | 2019-06-16 20:04 | PHYS DOC ---
Past Medical History Past Medical History: Asthma, COPD, CVA, Depression, Diabetes-Type II, High Cholesterol, Seizure Additional Past Medical Histor: degenerative joint disease, chronic pain (BRIANNA BEAR APRN) Past Surgical History: Appendectomy, Cholecystectomy, Tonsillectomy, Tubal l igation, Other Additional Past Surgical Histo: hernia repair x 3 (BRIANNA BEAR APRN) Alcohol Use: None Drug Use: None (BRIANNA BEAR APRN) Adult General Chief Complaint Chief Complaint: ABSCESS HPI HPI Patient is a 43 year old female, accompanied by her significant other, who presents to the ER with a new 0.5 cm red area above the abscess that she had drained here 2 days ago. She states that she has been taking tylenol for the pain but that the pain persists, she rates the pain a 10/10 on the pain scale. She denies any fever and reports continued bloody pus from the I&D site. She has been taking the Bactrim that was prescribed as directed. ROS Pt denies any fever, itching, or warmth. She denies any injury. All other ROS is neg unless otherwise noted in HPI. (BRIANNA BEAR APRN) Review of Systems Review of Systems See Above (BRIANNA BEAR APRN) Allergies Allergies Allergies Coded Allergies Type Severity Reaction Last Updated Verified Penicillins Allergy Intermediate 04/02/19 Yes ibuprofen Allergy Intermediate 04/02/19 Yes ketorolac Allergy Intermediate 04/02/19 Yes oxycodone Allergy Intermediate Unknown 04/02/19 Yes prednisolone Allergy Intermediate 04/02/19 Yes red dye Allergy Intermediate 04/02/19 Yes (ALEXIS GAMBLE DO) Physical Exam Physical Exam See Above Constitutional: Well developed, well nourished, no acute distress, non-toxic appearance, obese [] HENT: Normocephalic, atraumatic, bilateral external ears normal, nose normal. [] Eyes: conjunctiva normal, no discharge. [] Neck: Normal range of motion, no stridor. [] Cardiovascular:Heart rate regular rhythm Lungs & Thorax: Respirations even and unlabored, no retractions, no respiratory distress Abdomen: soft, no tenderness, no masses, no pulsatile masses. [] Skin: Warm, dry; erythremic site to left upper abdomen with 0.5 cm open area draining bloody pus, no fluctuance, consistent with healing abscess; superior to this abscess there is a 0.5 cm erythremic area that is not indurated and has no visible pustule. Extremities: No cyanosis, ROM intact, Neurologic: Alert and oriented X 3, no focal deficits noted. [] Psychologic: Affect normal, judgement normal, mood normal. [] (BRIANNA BEAR APRN) Current Patient Data Vital Signs Vital Signs Date Time Temp Pulse Resp B/P (MAP) Pulse Ox O2 Delivery O2 Flow Rate FiO2 06/16/19 19:29 98.6 97 16 120/69 (86) 93 Room Air 98.6 (ALEXIS GAMBLE DO) EKG EKG [] (BRIANNA BEAR APRN) Radiology/Procedures Radiology/Procedures [] (BRIANNA BEAR APRN) Course & Med Decision Making Course & Med Decision Making Pertinent Labs and Imaging studies reviewed. (See chart for details) Pt was advised to take tylenol as needed for pain. Recommend that she take the antibiotics as prescribed and apply warm, moist compresses to the site several times a day to promote healing. Follow up with your doctor as planned next week. Nursing staff erika a line around the abscess and pt was advised to return to the ER if the redness grew beyond that border. Prescription written for mupirocin ointment. Apply under fingernails BID x5 days. Patient verbalized an understanding of home care, medications, follow-up, and return to ED instructions and was in agreement with the plan of care. [] (BRIANNA BEAR APRN) Dragon Disclaimer Dragon Disclaimer This electronic medical record was generated, in whole or in part, using a voice recognition dictation system. (BRIANNA BEAR APRN) Departure Departure Impression: Primary Impression: Abdominal abscess Disposition: 01 HOME, SELF-CARE Condition: STABLE Referrals: MAXINE MONCADA MD (PCP) Patient Instructions: Abscess, Care After Additional Instructions: Take tylenol as needed for pain. Continue taking antibiotics as prescribed and apply warm, moist compresses to the site several times a day to promote healing. Follow up with your doctor as planned next week. Return to the ER if the redness grows beyond the border drawn around your abscess by your nurse. Fill the prescription and use as directed. Scripts Mupirocin (MUPIROCIN OINTMENT) 22 Gm Oint...g. 1 EDWARDO TP BID for WOUND CARE for 5 Days, #1 TUBE 0 Refills 1 application under your fingernails twice daily x5-7 days Prov: BRIANNA BEAR BRUSHER MACHINE 06/16/19 Attending Signature Attending Signature I have reviewed the PA/AUTO DRIVER's note and plan of care. I was available for consultation as needed during the patient's visit in the emergency department. I agree with the clinical impression, plan, and disposition. (ALEXIS GAMBLE DO) BRIANNA BEAR BRUSHER MACHINE Jun 16, 2019 20:04 ALEXIS GAMBLE DO Jun 17, 2019 01:12
== END 2019-06-16 20:12 | disposition home or self-care (01) ==
LOC: ER 18:40
DX: L02.211 Cutaneous abscess of abdominal wall (principal); J44.9 Chronic obstructive pulmonary disease, unspecified; E78.00 Pure hypercholesterolemia, unspecified; E11.9 Type 2 diabetes mellitus without complications; Z90.49 Acquired absence of other specified parts of digestive tract; Z90.89 Acquired absence of other organs; Z98.51 Tubal ligation status; Z98.890 Other specified postprocedural states; G89.29 Other chronic pain; Z86.73 Personal history of transient ischemic attack (TIA), and cerebral infarction without residual deficits; Z88.0 Allergy status to penicillin; Z88.5 Allergy status to narcotic agent; Z88.6 Allergy status to analgesic agent; Z91.041 Radiographic dye allergy status; Z88.8 Allergy status to other drugs, medicaments and biological substances
CPT/HCPCS: 99283

== ENCOUNTER 2019-07-18 16:50 | Emergency (ER) | payer OTHER ==
[~2019-07-18] VITALS: Ht 157.5 cm; Wt 85.7 kg
[~2019-07-18 16:50] MED LIST changes: +MUPI22OI2 TP
[2019-07-18 17:52] LABS: BASO # 0.1 x10^3/uL (0.0-0.2); BASO % 1 % (0-3); EOS # 0.1 x10^3/uL (0.0-0.7); EOS % 1 % (0-3); HEMATOCRIT 40.5 % (36.0-47.0); HEMOGLOBIN 14.1 g/dL (12.0-15.5); LYMPH # 2.6 x10^3/uL (1.0-4.8); LYMPH % 29 % (24-48); MEAN CORPUSCULAR HEMOGLOBIN 31 pg (25-35); MEAN CORPUSCULAR HGB CONC 35 g/dL (31-37); MEAN CORPUSCULAR VOLUME 90 fL (79-100); MONO # 0.4 x10^3/uL (0.0-1.1); MONO % 4 % (0-9); NEUT # 5.8 x10^3/uL (1.8-7.7); NEUT % 65 % (31-73); PLATELET COUNT 350 x10^3/uL (140-400); RED BLOOD COUNT 4.49 x10^6/uL (3.50-5.40); RED CELL DISTRIBUTION WIDTH 13.4 % (11.5-14.5)
--- NOTE | 2019-07-18 17:52 | PHYS DOC ---
Past Medical History Past Medical History: Asthma, COPD, CVA, Depression, Diabetes-Type II, High Cholesterol, Seizure Additional Past Medical Histor: degenerative joint disease, chronic pain Past Surgical History: Appendectomy, Cholecystectomy, Tonsillectomy, Tubal ligation, Other Additional Past Surgical Histo: hernia repair x 3 Alcohol Use: None Drug Use: None Adult General Chief Complaint Chief Complaint: SEIZURE [facility] HPI Patient is a 44 year old female with history of seizure who presents by EMS with complaining of seizure. Patient had a witnessed seizure by her as a episodes of stiff position that last less than 1 minute with loss of consciousness without postictal symptoms. Patient stated she did not lose her consciousness or had melena and bowel incontinence and complaining of mild headache. Patient states she had another episode of seizure one week ago. Patient denies missing her medication or having lack of sleep or using alcohol. Review of Systems Review of Systems Constitutional: Denies fever or chills [] Eyes: Denies change in visual acuity, redness, or eye pain [] HENT: Denies nasal congestion or sore throat [] Respiratory: Denies cough or shortness of breath [] Cardiovascular: No additional information not addressed in HPI [] GI: Denies abdominal pain, nausea, vomiting, bloody stools or diarrhea [] : Denies dysuria or hematuria [] Musculoskeletal: Denies back pain or joint pain [] Integument: Denies rash or skin lesions [] Neurologic: Reports headache, denies focal weakness or sensory changes [] Endocrine: Denies polyuria or polydipsia [] All other systems were reviewed and found to be within normal limits, except as documented in this note. Allergies Allergies Allergies Coded Allergies Type Severity Reaction Last Updated Verified Penicillins Allergy Intermediate 04/02/19 Yes ibuprofen Allergy Intermediate 04/02/19 Yes ketorolac Allergy Intermediate 04/02/19 Yes oxycodone Allergy Intermediate Unknown 04/02/19 Yes prednisolone Allergy Intermediate 04/02/19 Yes red dye Allergy Intermediate 04/02/19 Yes Physical Exam Physical Exam Constitutional: Well nourished, mild distress, non-toxic appearance. [] HENT: Normocephalic, atraumatic. Eyes: PERRLA, EOMI, conjunctiva normal, no discharge. [] Neck: Normal range of motion, no tenderness, supple, no stridor. [] Cardiovascular:Heart rate regular rhythm, no murmur [] Lungs & Thorax: Bilateral breath sounds clear to auscultation [] Abdomen: Bowel sounds normal, soft, no tenderness, no masses, no pulsatile masses. [] Skin: Warm, dry, no erythema, no rash. [] Back: No tenderness, no CVA tenderness. [] Extremities: No tenderness, no cyanosis, no clubbing, ROM intact, no edema. [] Neurologic: Alert and oriented X 3, no focal deficits noted. [] Psychologic: Affect normal, mood normal. [] Current Patient Data Vital Signs Vital Signs Date Time Temp Pulse Resp B/P (MAP) Pulse Ox O2 Delivery O2 Flow Rate FiO2 07/18/19 18:06 82 18 96 07/18/19 17:01 97.2 120/70 (87) Room Air 97.2 Lab Values Laboratory Tests Test 07/18/19 17:26 07/18/19 17:30 Urine Collection Type Unknown Urine Color Yellow Urine Clarity Clear Urine pH 5.5 Urine Specific [place] >=1.030 Urine Protein Negative mg/dL (NEG-TRACE) Urine Glucose (UA) >=1000 mg/dL (NEG) Urine Ketones (Stick) Negative mg/dL (NEG) Urine Blood Large (NEG) Urine Nitrite Negative (NEG) Urine Bilirubin Negative (NEG) Urine Urobilinogen Dipstick 0.2 mg/dL (0.2 mg/dL) Urine Leukocyte Esterase Negative (NEG) Urine RBC 1-2 /HPF (0-2) Urine WBC Occ /HPF (0-4) Urine Squamous Epithelial Cells Many /LPF Urine Bacteria Few /HPF (0-FEW) Urine Yeast Present /HPF Urine Opiates Screen Neg (NEG) Urine Methadone Screen Neg (NEG) Urine Barbiturates Neg (NEG) Urine Phencyclidine Screen Neg (NEG) Urine Amphetamine/Methamphetamine Neg (NEG) Urine Benzodiazepines Screen Neg (NEG) Urine Cocaine Screen Neg (NEG) Urine Cannabinoids Screen Neg (NEG) Urine Ethyl Alcohol Neg (NEG) White Blood Count 9.0 x10^3/uL (4.0-11.0) Red Blood Count 4.49 x10^6/uL (3.50-5.40) Hemoglobin 14.1 g/dL (12.0-15.5) Hematocrit 40.5 % (36.0-47.0) Mean Corpuscular Volume 90 fL (79-100) Mean Corpuscular Hemoglobin 31 pg (25-35) Mean Corpuscular Hemoglobin Concent 35 g/dL (31-37) Red Cell Distribution Width 13.4 % (11.5-14.5) Platelet Count 350 x10^3/uL (140-400) Neutrophils (%) (Auto) 65 % (31-73) Lymphocytes (%) (Auto) 29 % (24-48) Monocytes (%) (Auto) 4 % (0-9) Eosinophils (%) (Auto) 1 % (0-3) Basophils (%) (Auto) 1 % (0-3) Neutrophils # (Auto) 5.8 x10^3/uL (1.8-7.7) Lymphocytes # (Auto) 2.6 x10^3/uL (1.0-4.8) Monocytes # (Auto) 0.4 x10^3/uL (0.0-1.1) Eosinophils # (Auto) 0.1 x10^3/uL (0.0-0.7) Basophils # (Auto) 0.1 x10^3/uL (0.0-0.2) Sodium Level 137 mmol/L (136-145) Potassium Level 4.2 mmol/L (3.5-5.1) Chloride Level 104 mmol/L (98-107) Carbon Dioxide Level 25 mmol/L (21-32) Anion Gap 8 (6-14) Blood Urea Nitrogen 9 mg/dL (7-20) Creatinine 0.8 mg/dL (0.6-1.0) Estimated GFR (Cockcroft-Gault) 77.9 BUN/Creatinine Ratio 11 (6-20) Glucose Level 333 mg/dL (70-99) H Calcium Level 8.5 mg/dL (8.5-10.1) Total Bilirubin 0.2 mg/dL (0.2-1.0) Aspartate Amino Transferase (AST) 11 U/L (15-37) L Alanine Aminotransferase (ALT) 19 U/L (14-59) Alkaline Phosphatase 103 U/L (46-116) Total Protein 6.1 g/dL (6.4-8.2) L Albumin 3.3 g/dL (3.4-5.0) L Albumin/Globulin Ratio 1.2 (1.0-1.7) Laboratory Tests 07/18/19 17:30 Laboratory Tests 07/18/19 17:30 EKG EKG [] Radiology/Procedures Radiology/Procedures [] Course & Med Decision Making Course & Med Decision Making Pertinent Labs reviewed. (See chart for details) Evaluation of patient in ER showed 44-year-old female patient with history of seizure brought in by EMS because of patient in less than 1 minute. Patient did not have postictal condition or head or tongue injury. Patient was advised to continue home seizure medication, gabapentin and follow up with her primary care physician and neurologist. Dragon Disclaimer Dragon Disclaimer This electronic medical record was generated, in whole or in part, using a voice recognition dictation system. Departure Departure Impression: Primary Impression: Recurrent seizures Additional Impressions: Uncontrolled diabetes mellitus Hyperglycemia Disposition: 01 HOME, SELF-CARE Condition: STABLE Referrals: MAXINE MONCADA MD (PCP) Patient Instructions: 1800 Calorie Diet for Diabetes Meal Planning, Diabetes Meal Planning Guide, Diabetes and Exercise-SportsMed, Seizure, Adult Additional Instructions: Continue home seizure and diabetes medication Follow-up with your primary care physician in 2-3 days Return to ER if not getting better Problem Qualifiers Additional Impressions: Uncontrolled diabetes mellitus Diabetes mellitus type: other specified (including MARISOL) Glycemic state: with hyperglycemia Qualified Codes: E13.65 - Other specified diabetes mellitus with hyperglycemia CHANTE GANNON MD Jul 18, 2019 17:52
[2019-07-18 17:53] LABS: BILIRUBIN,URINE NEGATIVE (NEG); CLARITY,URINE CLEAR; COLOR,URINE YELLOW; NITRITE,URINE NEGATIVE (NEG); PH,URINE 5.5; PROTEIN,URINE NEGATIVE (NEG-TRACE); UROBILINOGEN,URINE 0.2 mg/dL (0.2 mg/dL)
[2019-07-18 17:56] LABS: SQUAMOUS EPITHELIAL CELL,UR MANY /LPF
[2019-07-18 17:57] LABS: BACTERIA,URINE FEW /HPF (0-FEW); WBC,URINE OCC /HPF (0-4)
[2019-07-18 17:58] LABS: CALCIUM 8.5 mg/dL (8.5-10.1); CREATININE 0.8 mg/dL (0.6-1.0); GFR 77.9; POTASSIUM 4.2 mmol/L (3.5-5.1)
[2019-07-18 17:59] LABS: BARBITURATES NEG (NEG); BENZODIAZEPINES NEG (NEG); CANNABINOIDS NEG (NEG); COCAINE NEG (NEG); METHADONE NEG (NEG); OPIATES NEG (NEG); PHENCYCLIDINE NEG (NEG); YEAST,URINE PRESENT /HPF
[2019-07-18 18:00] LABS: AMPHETAMINE/METHAMPHETAMINE NEG (NEG)
[2019-07-18 18:03] LABS: ALBUMIN 3.3 g/dL (3.4-5.0); ALBUMIN/GLOBULIN RATIO 1.2 (1.0-1.7); TOTAL BILIRUBIN 0.2 mg/dL (0.2-1.0); TOTAL PROTEIN 6.1 g/dL (6.4-8.2)
[2019-07-18 18:06] VITALS: BP 134/62
== END 2019-07-18 18:10 | disposition home or self-care (01) ==
LOC: ER 16:50
DX: G40.909 Epilepsy, unspecified, not intractable, without status epilepticus (principal); R55 Syncope and collapse; E13.65 Other specified diabetes mellitus with hyperglycemia; J44.9 Chronic obstructive pulmonary disease, unspecified; F32.9 Major depressive disorder, single episode, unspecified; E78.00 Pure hypercholesterolemia, unspecified; G89.29 Other chronic pain; Z86.73 Personal history of transient ischemic attack (TIA), and cerebral infarction without residual deficits; Z90.89 Acquired absence of other organs; Z90.49 Acquired absence of other specified parts of digestive tract; Z98.51 Tubal ligation status; Z88.6 Allergy status to analgesic agent; Z88.0 Allergy status to penicillin; Z88.5 Allergy status to narcotic agent; Z88.8 Allergy status to other drugs, medicaments and biological substances; Z91.041 Radiographic dye allergy status
CPT/HCPCS: 36415; 80053; 80307; 81001; 85025; 99284

== ENCOUNTER 2020-08-03 17:49 | Emergency (ER) | payer MEDICAID, OTHER ==
[~2020-08-03] VITALS: Ht 167.6 cm; Wt 86.4 kg
[~2020-08-03 17:49] MED LIST changes: -GLIM4TAB2 PO; +GLIM4TAB8 PO; +SIMV40TA18 PO; -SIMV40TA3 PO
--- NOTE | 2020-08-03 18:24 | PHYS DOC ---
Past Medical History Past Medical History: Asthma, COPD, CVA, Depression, Diabetes-Type II, High Cholesterol, Seizure, Other Additional Past Medical Histor: degenerative joint disease, chronic pain, " stroke" x 2 Past Surgical History: Appendectomy, Cholecystectomy, Tonsillectomy, Tubal ligation, Other Additional Past Surgical Histo: hernia repair x 3 Smoking Status: Current Every Day Smoker Alcohol Use: None Drug Use: None General Adult EDM: Chief Complaint: ANKLE PROBLEM HPI: HPI: Patient is a 45 year old female who stepped in a pothole yesterday and twisted her left ankle and ended up behind her bottom. Patient did not hit her head or have loss of conscious. Patient has isolated left foot and ankle pain that is 8 out of 10 throbbing and stabbing in nature that radiates up to the fibula. Patient denies any focal weakness or numbness. Review of Systems: Review of Systems: Constitutional: Denies fever or chills. [] Eyes: Denies change in visual acuity. [] HENT: Denies nasal congestion or sore throat. [] Respiratory: Denies cough or shortness of breath. [] Cardiovascular: Denies chest pain or edema. [] GI: Denies abdominal pain, nausea, vomiting, bloody stools or diarrhea. [] : Denies dysuria. [] Musculoskeletal: Denies back pain but has left ankle pain Integument: Denies rash. [] Neurologic: Denies headache, focal weakness or sensory changes. [] Endocrine: Denies polyuria or polydipsia. [] Lymphatic: Denies swollen glands. [] Psychiatric: Denies depression or anxiety. [] Heart Score: Risk Factors: Risk Factors: DM, Current or recent (<one month) smoker, HTN, HLP, family history of CAD, obesity. Risk Scores: Score 0 - 3: 2.5% MACE over next 6 weeks - Discharge Home Score 4 - 6: 20.3% MACE over next 6 weeks - Admit for Clinical Observation Score 7 - 10: 72.7% MACE over next 6 weeks - Early Invasive Strategies Current Medications: Current Medications Medications (Trade) Dose Ordered Sig/Bret Start Time Stop Time Status Last Admin Dose Admin Acetaminophen/ Hydrocodone Bitart (Lortab 7.5/325) 1 tab 1X ONCE 08/03/20 18:30 08/03/20 18:31 Allergies: Allergies: Allergies Coded Allergies Type Severity Reaction Last Updated Verified Penicillins Allergy Intermediate 04/02/19 Yes ibuprofen Allergy Intermediate 04/02/19 Yes ketorolac Allergy Intermediate 04/02/19 Yes oxycodone Allergy Intermediate Unknown 04/02/19 Yes prednisolone Allergy Intermediate 04/02/19 Yes red dye Allergy Intermediate 04/02/19 Yes Physical Exam: PE: Constitutional: Well developed, well nourished, no acute distress, non-toxic appearance. [] HENT: Normocephalic, atraumatic, bilateral external ears normal, no trismus nose normal. [] Eyes: PERRLA, EOMI, conjunctiva normal, no discharge. [] Neck: Normal range of motion, no tenderness, supple, no stridor. [] Cardiovascular:Heart rate regular rhythm, peripheral pulses are intact, cap refill is brisk Lungs & Thorax: Bilateral breath sounds clear, no respiratory distress Abdomen: , soft, no tenderness, no masses, no pulsatile masses. [] Skin: Warm, dry, no erythema, no rash. [] Ecchymosis to the left lateral malleolus and foot Back: No tenderness, no CVA tenderness. [] Extremities: Tenderness, swelling and ecchymosis to the lateral malleolus on the left and left lateral foot with some mild tenderness in the distal fibula and mid fibula, neurovascular intact distally Neurologic: Alert and oriented X 3, normal motor function, normal sensory function, no focal deficits noted. [] Psychologic: Affect normal, judgement normal, mood normal. [] Current Patient Data: Vital Signs: Vital Signs Date Time Temp Pulse Resp B/P (MAP) Pulse Ox O2 Delivery O2 Flow Rate FiO2 08/03/20 17:49 98.0 78 16 118/69 (85) 98 Room Air 98.0 EKG: EKG: [] Radiology/Procedures: Radiology/Procedures: [][facility] [address] [place] [address] IMAGING REPORT Signed PATIENT: COREEN MA ACCOUNT: [id number] : 1975 LOCATION: ER AGE: 45 SEX: F EXAM STATUS: REG ER ORD. PHYSICIAN: MARII SILVESTRE MD REASON: fell in pot hole, lateral foot/ankle pain PROCEDURE: TIBIA FIBULA LEFT FOOT LEFT 3V, TIBIA FIBULA LEFT, ANKLE LEFT 3V History: Reason: fell in pot hole, lateral foot/ankle pain / Spl. Instructions: / History: Technique: 2 views left tibia and fibula, 3 views left ankle and 3 views left foot Comparison: None. Findings: Normal alignment of the tibia and fibula. No fracture. Normal limit ankle. Symmetric ankle mortise. Lateral ankle soft tissue swelling. No fracture. Plantar calcaneal spur. Normal alignment of the foot. No fracture. Ankle joint effusion. Impression: 1. No acute osseous abnormality. 2. Ankle soft tissue swelling. 3. Ankle joint effusion. Electronically signed by: Mak Dale DO (08/03/2020 6:42 PM) [facility] DICTATED and SIGNED BY: MAK DALE DO DATE: 08/03/201841 Course & Med Decision Making: Course & Med Decision Making Pertinent Labs and Imaging studies reviewed. (See chart for details) [] 45-year-old female presents with left foot and ankle pain following a injury yesterday. X-rays are negative. Patient placed on crutches and Edi wrap. Stable for discharge. Dragon Disclaimer: ECO-SAFE Disclaimer: This electronic medical record was generated, in whole or in part, using a voice recognition dictation system. Departure Departure Impression: Primary Impression: Left ankle sprain Disposition: 01 HOME, SELF-CARE Condition: STABLE Referrals: NO PCP (PCP) ANDREA HURST II, MD 2-3 days Patient Instructions: Ankle Sprain, Crutch Use, Elastic Bandage and RICE Additional Instructions: EMERGENCY DEPARTMENT GENERAL DISCHARGE INSTRUCTIONS THANK YOU for coming to [facility] Emergency Department (ED) today and trusting us with your care. We trust that you had a positive experience in our Emergency Department. If you wish to speak to the department Management you can contact the street department dispatcher at . YOUR FOLLOW UP INSTRUCTIONS ARE FOLLOWS: Do you have a private doctor? If you do not have a private doctor, please ask for a resource list of physicians or clinics that may be able to assist you with follow up care. The Emergency Physician has interpreted your x-rays. The X-ray specialist will also review them. If there is a change in the findings you will be notified in 48 hours when at all possible. A lab test or lab culture may have been done, your results will be reviewed and you will be notified if you need a change in treatment. ADDITIONAL INSTRUCTIONS AND INFORMATION Your care today has been supervised by a physician who is specially trained in emergency care. Many problems require more than one evaluation for a complete diagnosis and treatment. We recommend that you schedule your follow up appointment as recommended to ensure complete treatment of your illness or injury. If you are unable to obtain follow up care and continue to have a problem, or if your condition worsens we recommend that you return to the ED. We are not able to safely determine your condition over the phone nor are we able to give sound medical advice over the phone. For these safety reasons, if you call for medical advice we will ask you to come to the ED for further evaluation If you have any questions regarding these discharge instructions please call the ED at . SAFETY INFORMATION In the interest of safety, wellness, and injury prevention; we encourage you to wear your seatbelt, if you smoke; quit smoking, and we encourage your family to use protective helmet for bicycling and other sporting events that present an increased risk for head injury. IF YOUR SYMPTOMS WORSEN OR NEW SYMPTOMS DEVELOP, OR YOU HAVE CONCERNS ABOUT YOUR CONDITION; OR IF YOUR CONDITION WORSENS WHILE YOU ARE WAITING FOR YOUR FOLLOW UP APPOINTMENT; EITHER CONTACT YOUR PRIMARY CARE DOCTOR, THE PHYSICIAN WHOSE NAME AND NUMBER YOU WERE GIVEN, OR RETURN TO THE ED IMMEDIATELY. Scripts Hydrocodone/Apap 5-325 (NORCO 5-325 TABLET) 1 Each Tablet 1-2 EACH PO PRN Q6HRS PRN for PAIN, #15 as needed for pain Prov: MARII SILVESTRE MD 08/03/20 MARII SILVESTRE MD Aug 03, 2020 18:24
[2020-08-03] MEDS ORDERED: HYDROcodone/APAP 7.5/325MG 1 TAB TABLET PO ONE (18:30)
--- NOTE | 2020-08-03 18:44 | RAD ---
FOOT LEFT 3V, TIBIA FIBULA LEFT, ANKLE LEFT 3V History: Reason: fell in pot hole, lateral foot/ankle pain / Spl. Instructions: / History: Technique: 2 views left tibia and fibula, 3 views left ankle and 3 views left foot Comparison: None. Findings: Normal alignment of the tibia and fibula. No fracture. Normal limit ankle. Symmetric ankle mortise. Lateral ankle soft tissue swelling. No fracture. Plantar calcaneal spur. Normal alignment of the foot. No fracture. Ankle joint effusion. Impression: 1. No acute osseous abnormality. 2. Ankle soft tissue swelling. 3. Ankle joint effusion. Electronically signed by: Mak Dale DO (08/03/2020 6:42 PM) [facility]
[2020-08-03] MEDS ORDERED: HYDR-3164 PO (19:02)
[2020-08-03 19:48] VITALS: BP 101/66
== END 2020-08-03 19:55 | disposition home or self-care (01) ==
LOC: ER 17:49
DX: S93.402A Sprain of unspecified ligament of left ankle, initial encounter (principal); J44.9 Chronic obstructive pulmonary disease, unspecified; E11.9 Type 2 diabetes mellitus without complications; E78.00 Pure hypercholesterolemia, unspecified; Z86.73 Personal history of transient ischemic attack (TIA), and cerebral infarction without residual deficits; G89.29 Other chronic pain; F17.200 Nicotine dependence, unspecified, uncomplicated; Z88.0 Allergy status to penicillin; Z88.5 Allergy status to narcotic agent; Z88.6 Allergy status to analgesic agent; Z91.041 Radiographic dye allergy status; Z88.8 Allergy status to other drugs, medicaments and biological substances; X50.9XXA Other and unspecified overexertion or strenuous movements or postures, initial encounter; Y93.89 Activity, other specified; Y92.89 Other specified places as the place of occurrence of the external cause; Y99.8 Other external cause status
CPT/HCPCS: 73590; 73610; 73630; 99281; 99282; 99285

== ENCOUNTER 2020-08-06 13:32 | Emergency (ER) | payer MEDICAID ==
[~2020-08-06] VITALS: Ht 152.4 cm; Wt 80.0 kg
[2020-08-06 13:58] VITALS: BP 139/79
--- NOTE | 2020-08-06 14:51 | RAD ---
EXAM: ANKLE LEFT 3V, FOOT LEFT 3V 08/06/2020 2:10 PM CLINICAL INDICATION:Left ankle pain COMPARISON:Left ankle radiograph 08/03/2020 TECHNIQUE:3 views of left foot and 3 views of the left ankle FINDINGS: Left ankle: No acute fracture. Alignment is normal. The ankle mortise is symmetric and talar dome is intact. There is persistent mild soft tissue swelling and a small joint effusion at the ankle. Left foot: No acute fracture. Alignment is normal. Joint spaces are maintained. Mild diffuse soft tissue swelling. IMPRESSION:No acute osseous abnormality of the left foot or ankle. Persistent mild soft tissue swelling and small ankle joint effusion. Electronically signed by: Nya Bhatia MD (08/06/2020 2:48 PM) [id number]
--- NOTE | 2020-08-06 15:02 | PHYS DOC ---
Past Medical History Past Medical History: Asthma, COPD, CVA, Depression, Diabetes-Type II, High Cholesterol, Seizure, Other Additional Past Medical Histor: degenerative joint disease, chronic pain, " stroke" x 2 Past Surgical History: Appendectomy, Cholecystectomy, Tonsillectomy, Tubal ligation, Other Additional Past Surgical Histo: hernia repair x 3 Smoking Status: Current Every Day Smoker Alcohol Use: None Drug Use: None General Adult EDM: Chief Complaint: LOWER EXT PAIN HPI: HPI: Patient is a 45 year old female, accompanied by her significant other, who presents to the emergency room with complaints of continued pain and swelling in her left ankle and foot after an injury that occurred 4 days ago. She was seen here 3 days ago and had negative x-rays of her ankle and foot. The patient was given crutches and an Edi wrap was applied. She was also prescribed hydrocodone to take as needed for pain. Patient states that the hydrocodone was not helping with her discomfort. She states that she took 400 mg of Neurontin that she had at home and did get some relief from that. She currently rates her pain a 6 out of 10 on the pain scale, she denies any alleviating factors, the pain is worse with movement and palpation. She denies any numbness or tingling of the affected extremity. Review of Systems: Review of Systems: Complete ROS is negative unless otherwise stated in the HPI. Heart Score: Risk Factors: Risk Factors: DM, Current or recent (<one month) smoker, HTN, HLP, family history of CAD, obesity. Risk Scores: Score 0 - 3: 2.5% MACE over next 6 weeks - Discharge Home Score 4 - 6: 20.3% MACE over next 6 weeks - Admit for Clinical Observation Score 7 - 10: 72.7% MACE over next 6 weeks - Early Invasive Strategies Allergies: Allergies: Allergies Coded Allergies Type Severity Reaction Last Updated Verified Penicillins Allergy Intermediate 04/02/19 Yes ibuprofen Allergy Intermediate 04/02/19 Yes ketorolac Allergy Intermediate 04/02/19 Yes oxycodone Allergy Intermediate Unknown 04/02/19 Yes prednisolone Allergy Intermediate 04/02/19 Yes red dye Allergy Intermediate 04/02/19 Yes Physical Exam: PE: Constitutional: Well developed, well nourished, no acute distress, non-toxic appearance. [] HENT: Normocephalic, atraumatic, bilateral external ears normal, nose normal. [] Eyes: PERRLA, EOMI, conjunctiva normal, no discharge. [] Neck: Normal range of motion, no stridor. [] Cardiovascular:Heart rate regular rhythm Lungs & Thorax: Respirations even and unlabored, no retractions, no respiratory distress Skin: Warm, dry, no erythema, no rash. [] Extremities: Lower left extremity: Bruising noted to the left ankle and left foot, no obvious deformity, 1+ edema, diffuse tenderness to palpation of the lef t ankle and left foot, no crepitus, no cyanosis, ROM intact, sensation intact. Neurologic: Alert and oriented X 3, no focal deficits noted. [] Psychologic: Affect normal, judgement normal, mood normal. [] Current Patient Data: Vital Signs: Vital Signs Date Time Temp Pulse Resp B/P (MAP) Pulse Ox O2 Delivery O2 Flow Rate FiO2 08/06/20 13:58 98.2 84 16 139/79 (99) 97 Room Air 98.2 EKG: EKG: [] Radiology/Procedures: Radiology/Procedures: PROCEDURE: FOOT LEFT 3V EXAM: ANKLE LEFT 3V, FOOT LEFT 3V 08/06/2020 2:10 PM CLINICAL INDICATION:Left ankle pain COMPARISON:Left ankle radiograph 08/03/2020 TECHNIQUE:3 views of left foot and 3 views of the left ankle FINDINGS: Left ankle: No acute fracture. Alignment is normal. The ankle mortise is symmetric and talar dome is intact. There is persistent mild soft tissue swelling and a small joint effusion at the ankle. Left foot: No acute fracture. Alignment is normal. Joint spaces are maintained. Mild diffuse soft tissue swelling. IMPRESSION:No acute osseous abnormality of the left foot or ankle. Persistent mild soft tissue swelling and small ankle joint effusion. [] Course & Med Decision Making: Course & Med Decision Making Pertinent Labs and Imaging studies reviewed. (See chart for details) 45-year-old female presents emergency department with continued work and worsening pain in her left foot and ankle after an injury 4 days prior to arrival. Repeat x-rays of the affected foot and ankle revealed no acute findings. The patient was placed in the ankle air splint. She is encouraged to take Tylenol as needed for pain, continue using crutches, weight-bear as tolerated, apply ice, elevate, and follow-up with 's office for reevaluation in 1 to 2 days. Patient verbalized an understanding of home care, medications, follow-up, and return to ED instructions and was in agreement with the plan of care. [] Gracia Disclaimer: Gracia Disclaimer: This electronic medical record was generated, in whole or in part, using a voice recognition dictation system. Departure Departure Impression: Primary Impression: Ankle pain, left Qualified Codes: M25.572 - Pain in left ankle and joints of left foot Additional Impression: Foot contusion Qualified Codes: S90.32XD - Contusion of left foot, subsequent encounter Disposition: HOME, SELF-CARE Condition: STABLE Referrals: EDWIN MUSTAFA MD Patient Instructions: Ankle Pain, Foot Contusion, [id number] Additional Instructions: Take Tylenol as needed for pain, continue using crutches, weight-bear as tolerated, apply ice, elevate, and follow-up with 's office for reevaluation in 1 to 2 days. Return to the ER if your symptoms worsen. BRIANNA BEAR SITE LEADER Aug 06, 2020 15:02
== END 2020-08-06 15:22 | disposition home or self-care (01) ==
LOC: ER 13:32
DX: S90.32XD Contusion of left foot, subsequent encounter (principal); M25.572 Pain in left ankle and joints of left foot; J44.9 Chronic obstructive pulmonary disease, unspecified; E11.9 Type 2 diabetes mellitus without complications; E78.00 Pure hypercholesterolemia, unspecified; Z86.73 Personal history of transient ischemic attack (TIA), and cerebral infarction without residual deficits; G89.29 Other chronic pain; F17.200 Nicotine dependence, unspecified, uncomplicated; Z90.89 Acquired absence of other organs; Z98.51 Tubal ligation status; Z88.0 Allergy status to penicillin; Z88.6 Allergy status to analgesic agent; Z88.5 Allergy status to narcotic agent; Z91.041 Radiographic dye allergy status; Z88.8 Allergy status to other drugs, medicaments and biological substances; X58.XXXD Exposure to other specified factors, subsequent encounter
CPT/HCPCS: 73610; 73630; 99284

== ENCOUNTER 2020-09-08 10:05 | Emergency (ER) | payer MEDICAID ==
[~2020-09-08] VITALS: Ht 154.9 cm; Wt 77.2 kg
[2020-09-08 10:49] LABS: BILIRUBIN,URINE NEGATIVE (NEG); CLARITY,URINE CLEAR; COLOR,URINE YELLOW; NITRITE,URINE NEGATIVE (NEG); PROTEIN,URINE NEGATIVE (NEG-TRACE); UROBILINOGEN,URINE 0.2 mg/dL (0.2 mg/dL)
[2020-09-08 11:13] LABS: BACTERIA,URINE MODERATE /HPF (0-FEW); RBC,URINE OCC /HPF (0-2); WBC,URINE 0 /HPF (0-4)
[2020-09-08 11:14] LABS: YEAST,URINE PRESENT /HPF
[2020-09-08] MEDS ORDERED: IV NORMAL SALINE 1000ML BAG 1,000 ML IV ONE (11:30)
[2020-09-08] MEDS ORDERED: METOCLOPRAMIDE HCL 10 MG/2 ML VIAL. IVP ONE (11:30)
[2020-09-08] MEDS ORDERED: fentaNYL PF VIAL 100 MCG/2 ML VIAL IV ONE (11:30)
--- NOTE | 2020-09-08 11:51 | RAD ---
PQRS Compliance Statement: One or more of the following individualized dose reduction techniques were utilized for this examination: 1. Automated exposure control 2. Adjustment of the mA and/or kV according to patient size 3. Use of iterative reconstruction technique CT ABDOMEN PELVIS WO CONTRAST Clinical Indication: Reason: left flank pain eval for ureteral calculi / Spl. Instructions: / History: Comparison: CT abdomen and pelvis with contrast, January 08, 2019. Technique: Helical CT imaging of the abdomen and pelvis is performed without IV or oral contrast. Findings: Evaluation of solid organs and bowel is limited without oral and IV contrast, decreasing sensitivity for detection of pathology. There are patchy central groundglass opacities in the bilateral lung bases, cephalad extent is not imaged. The groundglass opacities are similar to prior study. Coronary artery disease. Cardiac size is normal. There are postsurgical changes of the ventral abdominal wall that are stable. Cholecystectomy. Liver, spleen, pancreas, adrenal glands, abdominal aorta caliber are normal. No renal, ureteral, or bladder calculus is seen. There is no hydronephrosis. Minimal bilateral perinephric stranding. No obvious abnormality of the stomach. No dilated small bowel. There is no colon wall thickening. Appendectomy. No abdominal adenopathy or free fluid. Ovaries are symmetric. Anteverted uterus is situated right of midline. Urinary bladder is normal. No pelvic free fluid. No acute bone abnormality. IMPRESSION: 1. No obstructive uropathy. 2. There are patchy central groundglass opacities in the bilateral lung bases, similar to prior study. Considerations include recurrent atypical pneumonia or chronic pneumonitis. 3. Coronary artery disease. Electronically signed by: Janes Vang MD (09/08/2020 11:48 AM) [id number]
[2020-09-08 13:00] LABS: BASO # 0.1 x10^3/uL (0.0-0.2); BASO % 1 % (0-3); EOS # 0.1 x10^3/uL (0.0-0.7); EOS % 1 % (0-3); HEMATOCRIT 42.8 % (36.0-47.0); HEMOGLOBIN 14.6 g/dL (12.0-15.5); LYMPH # 2.6 x10^3/uL (1.0-4.8); LYMPH % 27 % (24-48); MEAN CORPUSCULAR HEMOGLOBIN 31 pg (25-35); MEAN CORPUSCULAR HGB CONC 34 g/dL (31-37); MEAN CORPUSCULAR VOLUME 91 fL (79-100); MONO # 0.4 x10^3/uL (0.0-1.1); MONO % 5 % (0-9); NEUT # 6.3 x10^3/uL (1.8-7.7); NEUT % 67 % (31-73); PLATELET COUNT 284 x10^3/uL (140-400); WHITE BLOOD COUNT 9.4 x10^3/uL (4.0-11.0)
[2020-09-08 13:05] LABS: CALCIUM 7.7 mg/dL (8.5-10.1); CREATININE 0.6 mg/dL (0.6-1.0); GFR 108.1; POTASSIUM 3.7 mmol/L (3.5-5.1)
[2020-09-08 13:11] LABS: ALBUMIN 2.6 g/dL (3.4-5.0); MAGNESIUM 1.7 mg/dL (1.8-2.4); TOTAL BILIRUBIN 0.3 mg/dL (0.2-1.0); TOTAL PROTEIN 5.3 g/dL (6.4-8.2)
[2020-09-08 13:30] VITALS: BP 116/68
[2020-09-08] MEDS ORDERED: FLUCONAZOLE 100 MG TABLET. PO ONE (14:00)
[2020-09-08] MEDS ORDERED: GABA300C2 PO (14:05)
--- NOTE | 2020-09-08 14:05 | PHYS DOC ---
Past Medical History Past Medical History: Asthma, COPD, CVA, Depression, Diabetes-Type II, High Cholesterol, Seizure, Other Additional Past Medical Histor: degenerative joint disease, chronic pain, "stroke" x 2 Past Surgical History: Appendectomy, Cholecystectomy, Tonsillectomy, Tubal ligation, Other Additional Past Surgical Histo: hernia repair x 3 Smoking Status: Current Every Day Smoker Alcohol Use: None Drug Use: None General Adult EDM: Chief Complaint: ABDOMINAL PAIN HPI: HPI: Patient is a 45 year old [f__sex] who presents with [] Review of Systems: Review of Systems: Constitutional: Denies fever or chills. [] Eyes: Denies change in visual acuity. [] HENT: Denies nasal congestion or sore throat. [] Respiratory: Denies cough or shortness of breath. [] Cardiovascular: Denies chest pain or edema. [] GI: Denies abdominal pain, nausea, vomiting, bloody stools or diarrhea. [] : Denies dysuria. [] Musculoskeletal: Denies back pain or joint pain. [] Integument: Denies rash. [] Neurologic: Denies headache, focal weakness or sensory changes. [] Endocrine: Denies polyuria or polydipsia. [] Lymphatic: Denies swollen glands. [] Psychiatric: Denies depression or anxiety. [] Current Medications: Current Medications Medications (Trade) Dose Ordered Sig/Bret Start Time Stop Time Status Last Admin Dose Admin Fentanyl Citrate (Fentanyl 2ml Vial) 50 mcg 1X ONCE 09/08/20 11:30 09/08/20 11:31 DC 09/08/20 12:04 50 MCG Fluconazole (Diflucan) 200 mg 1X ONCE 09/08/20 14:00 09/08/20 14:01 Metoclopramide HCl (Reglan Vial) 10 mg 1X ONCE 09/08/20 11:30 09/08/20 11:31 DC 09/08/20 12:01 10 MG Sodium Chloride 1,000 ml @ 1,000 mls/hr 1X ONCE 09/08/20 11:30 09/08/20 12:29 DC 09/08/20 12:00 1,000 MLS/HR Allergies: Allergies: Allergies Coded Allergies Type Severity Reaction Last Updated Verified Penicillins Allergy Intermediate 04/02/19 Yes ibuprofen Allergy Intermediate 04/02/19 Yes ketorolac Allergy Intermediate 04/02/19 Yes oxycodone Allergy Intermediate Unknown 04/02/19 Yes prednisolone Allergy Intermediate 04/02/19 Yes red dye Allergy Intermediate 04/02/19 Yes Physical Exam: PE: Constitutional: Well developed, well nourished, no acute distress, non-toxic appearance. [] HENT: Normocephalic, atraumatic, bilateral external ears normal, oropharynx moist, no oral exudates, nose normal. [] Eyes: PERRLA, EOMI, conjunctiva normal, no discharge. [] Neck: Normal range of motion, no tenderness, supple, no stridor. [] Cardiovascular:Heart rate regular rhythm, no murmur [] Lungs & Thorax: Bilateral breath sounds clear to auscultation [] Abdomen: Bowel sounds normal, soft, no tenderness, no masses, no pulsatile masses. [] Skin: Warm, dry, no erythema, no rash. [] Back: No tenderness, no CVA tenderness. [] Extremities: No tenderness, no cyanosis, no clubbing, ROM intact, no edema. [] Neurologic: Alert and oriented X 3, normal motor function, normal sensory function, no focal deficits noted. [] Psychologic: Affect normal, judgement normal, mood normal. [] Current Patient Data: Labs: Laboratory Tests Test 09/08/20 10:15 09/08/20 12:40 Urine Collection Type Unknown Urine Color Yellow Urine Clarity Clear Urine pH 6.0 (<5.0-8.0) Urine Specific [place] >=1.030 (1.000-1.030) Urine Protein Negative mg/dL (NEG-TRACE) Urine Glucose (UA) >=1000 mg/dL (NEG) Urine Ketones (Stick) Negative mg/dL (NEG) Urine Blood Negative (NEG) Urine Nitrite Negative (NEG) Urine Bilirubin Negative (NEG) Urine Urobilinogen Dipstick 0.2 mg/dL (0.2 mg/dL) Urine Leukocyte Esterase Negative (NEG) Urine RBC Occ /HPF (0-2) Urine WBC 0 /HPF (0-4) Urine Squamous Epithelial Cells Mod /LPF Urine Bacteria Moderate /HPF (0-FEW) Urine Yeast Present /HPF White Blood Count 9.4 x10^3/uL (4.0-11.0) Red Blood Count 4.70 x10^6/uL (3.50-5.40) Hemoglobin 14.6 g/dL (12.0-15.5) Hematocrit 42.8 % (36.0-47.0) Mean Corpuscular Volume 91 fL (79-100) Mean Corpuscular Hemoglobin 31 pg (25-35) Mean Corpuscular Hemoglobin Concent 34 g/dL (31-37) Red Cell Distribution Width 13.0 % (11.5-14.5) Platelet Count 284 x10^3/uL (140-400) Neutrophils (%) (Auto) 67 % (31-73) Lymphocytes (%) (Auto) 27 % (24-48) Monocytes (%) (Auto) 5 % (0-9) Eosinophils (%) (Auto) 1 % (0-3) Basophils (%) (Auto) 1 % (0-3) Neutrophils # (Auto) 6.3 x10^3/uL (1.8-7.7) Lymphocytes # (Auto) 2.6 x10^3/uL (1.0-4.8) Monocytes # (Auto) 0.4 x10^3/uL (0.0-1.1) Eosinophils # (Auto) 0.1 x10^3/uL (0.0-0.7) Basophils # (Auto) 0.1 x10^3/uL (0.0-0.2) Sodium Level 137 mmol/L (136-145) Potassium Level 3.7 mmol/L (3.5-5.1) Chloride Level 104 mmol/L (98-107) Carbon Dioxide Level 28 mmol/L (21-32) Anion Gap 5 (6-14) L Blood Urea Nitrogen 3 mg/dL (7-20) L Creatinine 0.6 mg/dL (0.6-1.0) Estimated GFR (Cockcroft-Gault) 108.1 BUN/Creatinine Ratio 5 (6-20) L Glucose Level 375 mg/dL (70-99) H Calcium Level 7.7 mg/dL (8.5-10.1) L Magnesium Level 1.7 mg/dL (1.8-2.4) L Total Bilirubin 0.3 mg/dL (0.2-1.0) Aspartate Amino Transferase (AST) 19 U/L (15-37) Alanine Aminotransferase (ALT) 27 U/L (14-59) Alkaline Phosphatase 109 U/L (46-116) Total Protein 5.3 g/dL (6.4-8.2) L Albumin 2.6 g/dL (3.4-5.0) L Albumin/Globulin Ratio 1.0 (1.0-1.7) Lipase 70 U/L (73-393) L Laboratory Tests 09/08/20 12:40 Laboratory Tests 09/08/20 12:40 Vital Signs: Vital Signs Date Time Temp Pulse Resp B/P (MAP) Pulse Ox O2 Delivery O2 Flow Rate FiO2 09/08/20 13:30 74 116/68 (84) 96 Room Air 09/08/20 10:22 99.0 20 99.0 EKG: EKG: [] Radiology/Procedures: Radiology/Procedures: PROCEDURE: CT ABDOMEN PELVIS WO CONTRAST PQRS Compliance Statement: One or more of the following individualized dose reduction techniques were utilized for this examination: 1. Automated exposure control 2. Adjustment of the mA and/or kV according to patient size 3. Use of iterative reconstruction technique CT ABDOMEN PELVIS WO CONTRAST Clinical Indication: Reason: left flank pain eval for ureteral calculi / Spl. Instructions: / History: Comparison: CT abdomen and pelvis with contrast, January 08, 2019. Technique: Helical CT imaging of the abdomen and pelvis is performed without IV or oral contrast. Findings: Evaluation of solid organs and bowel is limited without oral and IV contrast, decreasing sensitivity for detection of pathology. There are patchy central groundglass opacities in the bilateral lung bases, cephalad extent is not imaged. The groundglass opacities are similar to prior study. Coronary artery disease. Cardiac size is normal. There are postsurgical changes of the ventral abdominal wall that are stable. Cholecystectomy. Liver, spleen, pancreas, adrenal glands, abdominal aorta caliber are normal. No renal, ureteral, or bladder calculus is seen. There is no hydronephrosis. Minimal bilateral perinephric stranding. No obvious abnormality of the stomach. No dilated small bowel. There is no colon wall thickening. Appendectomy. No abdominal adenopathy or free fluid. Ovaries are symmetric. Anteverted uterus is situated right of midline. Urinary bladder is normal. No pelvic free fluid. No acute bone abnormality. IMPRESSION: 1. No obstructive uropathy. 2. There are patchy central groundglass opacities in the bilateral lung bases, similar to prior study. Considerations include recurrent atypical pneumonia or chronic pneumonitis. 3. Coronary artery disease. Electronically signed by: Janes Vang MD (09/08/2020 11:48 AM) [id number] Course & Med Decision Making: Course & Med Decision Making Pertinent Labs and Imaging studies reviewed. (See chart for details) [] Gracia Disclaimer: Gracia Disclaimer: This electronic medical record was generated, in whole or in part, using a voice recognition dictation system. Departure Departure Impression: Primary Impression: Flank pain Additional Impressions: Medication refill Yeast cystitis Disposition: 01 DC HOME SELF CARE/HOMELESS Condition: STABLE Referrals: ANAHY GUPTA (PCP) Patient Instructions: Flank Pain, [id number], Medication Refill, Emergency Department Scripts Ondansetron (ONDANSETRON ODT) 4 Mg Tab.rapdis 1 TAB PO PRN Q6-8HRS PRN for NAUSEA, #16 TAB Prov: ALEXIS GAMBLE DO 09/08/20 Fluconazole (DIFLUCAN) 200 Mg Tablet 1 TAB PO DAILY, #1 TAB Take in 1 week (09/15/2020) Prov: ALEXIS GAMBLE DO 09/08/20 Gabapentin (Neurontin) 300 Mg Capsule 300 MG PO TID, #30 CAP Take 1 tab on day 1, take BID on day 2, then take TID going forward Prov: ALEXIS GAMBLE DO 09/08/20 ALEXIS GAMBLE DO Sep 08, 2020 14:05
[2020-09-08] MEDS ORDERED: FLUC200T PO (14:08)
[2020-09-08] MEDS ORDERED: ONDA4TAB12 PO (14:09)
== END 2020-09-08 14:34 | disposition home or self-care (01) ==
LOC: ER 10:05
DX: B37.41 Candidal cystitis and urethritis (principal); Z76.0 Encounter for issue of repeat prescription; J44.9 Chronic obstructive pulmonary disease, unspecified; E11.9 Type 2 diabetes mellitus without complications; E78.00 Pure hypercholesterolemia, unspecified; G89.29 Other chronic pain; F17.200 Nicotine dependence, unspecified, uncomplicated; Z86.73 Personal history of transient ischemic attack (TIA), and cerebral infarction without residual deficits; Z90.49 Acquired absence of other specified parts of digestive tract; Z90.89 Acquired absence of other organs; Z98.51 Tubal ligation status; Z98.890 Other specified postprocedural states; Z88.0 Allergy status to penicillin; Z88.5 Allergy status to narcotic agent; Z88.6 Allergy status to analgesic agent; Z91.041 Radiographic dye allergy status; Z88.8 Allergy status to other drugs, medicaments and biological substances
CPT/HCPCS: 36415; 74176; 80053; 81001; 83690; 83735; 85025; 87086; 96361; 96374; 96375; 99284; J2765; J3010; J7030

== ENCOUNTER 2020-09-28 16:59 | Emergency (ER) | payer MEDICAID ==
[~2020-09-28] VITALS: Ht 152.4 cm; Wt 77.0 kg
[~2020-09-28 16:59] MED LIST changes: -CLIN300C8 PO; +CLIN300C9 PO; +FLUC200T PO; +GABA300C2 PO; +ONDA4TAB12 PO
[2020-09-28 17:27] LABS: BASO # 0.1 x10^3/uL (0.0-0.2); BASO % 1 % (0-3); EOS # 0.1 x10^3/uL (0.0-0.7); EOS % 1 % (0-3); HEMATOCRIT 47.8 % (36.0-47.0); HEMOGLOBIN 16.3 g/dL (12.0-15.5); LYMPH # 2.7 x10^3/uL (1.0-4.8); LYMPH % 26 % (24-48); MEAN CORPUSCULAR HEMOGLOBIN 31 pg (25-35); MEAN CORPUSCULAR HGB CONC 34 g/dL (31-37); MEAN CORPUSCULAR VOLUME 90 fL (79-100); MONO # 0.6 x10^3/uL (0.0-1.1); MONO % 5 % (0-9); NEUT # 7.2 x10^3/uL (1.8-7.7); NEUT % 67 % (31-73); PLATELET COUNT 407 x10^3/uL (140-400); RED CELL DISTRIBUTION WIDTH 12.9 % (11.5-14.5); WHITE BLOOD COUNT 10.6 x10^3/uL (4.0-11.0)
[2020-09-28 17:36] LABS: CALCIUM 8.6 mg/dL (8.5-10.1); CREATININE 0.8 mg/dL (0.6-1.0); GFR 77.6; POTASSIUM 3.7 mmol/L (3.5-5.1)
[2020-09-28 17:44] LABS: ALBUMIN 3.6 g/dL (3.4-5.0); MAGNESIUM 1.9 mg/dL (1.8-2.4); TOTAL BILIRUBIN 0.1 mg/dL (0.2-1.0); TOTAL PROTEIN 7.1 g/dL (6.4-8.2)
[2020-09-28 17:50] LABS: CREATINE KINASE 22 U/L (26-192)
--- NOTE | 2020-09-28 17:56 | ED.ADGEN ---
Past Medical History Past Medical History: Asthma, COPD, CVA, Depression, Diabetes-Type II, High Cholesterol, Seizure, Other Additional Past Medical Histor: degenerative joint disease, chronic pain, "stroke" x 2 Past Surgical History: Appendectomy, Cholecystectomy, Tonsillectomy, Tubal ligation, Other Additional Past Surgical Histo: hernia repair x 3 Smoking Status: Current Every Day Smoker Alcohol Use: None Drug Use: None General Adult EDM: Chief Complaint: CHEST PAIN HPI: HPI: Patient is a 45 year old female who presents to the emergency department via EMS with complaints of chest pain for the last hour accompanied by 1 episode of nausea and vomiting. Patient states that her entire chest hurts and is tender to touch for the last hour. She denies any shortness of breath, palpitations, cough, fever, body aches, diaphoresis, abdominal pain, diarrhea, or dizziness. She currently denies any nausea. Patient states the pain began she felt weak all over. Patient reports that at the onset of the pain she felt tingling in both sides of her face, she currently denies any numbness or tingling. Patient reports that she took 81 mg aspirin prior to arrival. She currently rates the pain a 8 out of 10 on the pain scale, she denies any alleviating factors. She reports that breathing and movement makes the pain worse. Review of Systems: Review of Systems: Complete ROS is negative unless otherwise noted in HPI. Current Medications: Current Medications Medications (Trade) Dose Ordered Sig/[facility] Start Time Stop Time Status Last Admin Dose Admin Aspirin (Aspirin Chewable) 243 mg 1X ONCE 09/28/20 18:00 09/28/20 18:01 DC 09/28/20 17:36 243 MG Allergies: Allergies: Allergies Coded Allergies Type Severity Reaction Last Updated Verified Penicillins Allergy Intermediate 04/02/19 Yes ibuprofen Allergy Intermediate 04/02/19 Yes ketorolac Allergy Intermediate 04/02/19 Yes oxycodone Allergy Intermediate Unknown 04/02/19 Yes prednisolone Allergy Intermediate 04/02/19 Yes red dye Allergy Intermediate 04/02/19 Yes Physical Exam: PE: See Above Constitutional: Well developed, well nourished, no acute distress, non-toxic [place]. [] HENT: Normocephalic, atraumatic, bilateral external ears normal, nose normal. [] Eyes: PERRLA, EOMI, conjunctiva normal, no discharge. [] Neck: Normal range of motion, no stridor. [] Cardiovascular:Heart rate regular rhythm Lungs & Thorax: Respirations even and unlabored, no retractions, no respiratory distress, bilateral anterior chest tenderness to palpation without subcutaneous emphysema or crepitus Abdomen: soft, no tenderness Skin: Warm, dry, no erythema, no rash. [] Extremities: No cyanosis, ROM intact, no edema. [] Neurologic: Alert and oriented X 3, no focal deficits noted. [] Psychologic: Affect normal, judgement normal, mood normal. [] Current Patient Data: Labs: Laboratory Tests Test 09/28/20 17:10 09/28/20 19:20 09/28/20 19:35 White Blood Count 10.6 x10^3/uL (4.0-11.0) Red Blood Count 5.30 x10^6/uL (3.50-5.40) Hemoglobin 16.3 g/dL (12.0-15.5) H Hematocrit 47.8 % (36.0-47.0) H Mean Corpuscular Volume 90 fL (79-100) Mean Corpuscular Hemoglobin 31 pg (25-35) Mean Corpuscular Hemoglobin Concent 34 g/dL (31-37) Red Cell Distribution Width 12.9 % (11.5-14.5) Platelet Count 407 x10^3/uL (140-400) H Neutrophils (%) (Auto) 67 % (31-73) Lymphocytes (%) (Auto) 26 % (24-48) Monocytes (%) (Auto) 5 % (0-9) Eosinophils (%) (Auto) 1 % (0-3) Basophils (%) (Auto) 1 % (0-3) Neutrophils # (Auto) 7.2 x10^3/uL (1.8-7.7) Lymphocytes # (Auto) 2.7 x10^3/uL (1.0-4.8) Monocytes # (Auto) 0.6 x10^3/uL (0.0-1.1) Eosinophils # (Auto) 0.1 x10^3/uL (0.0-0.7) Basophils # (Auto) 0.1 x10^3/uL (0.0-0.2) Sodium Level 135 mmol/L (136-145) L Potassium Level 3.7 mmol/L (3.5-5.1) Chloride Level 98 mmol/L (98-107) Carbon Dioxide Level 26 mmol/L (21-32) Anion Gap 11 (6-14) Blood Urea Nitrogen 12 mg/dL (7-20) Creatinine 0.8 mg/dL (0.6-1.0) Estimated GFR (Cockcroft-Gault) 77.6 BUN/Creatinine Ratio 15 (6-20) Glucose Level 337 mg/dL (70-99) H Calcium Level 8.6 mg/dL (8.5-10.1) Magnesium Level 1.9 mg/dL (1.8-2.4) Total Bilirubin 0.1 mg/dL (0.2-1.0) L Aspartate Amino Transferase (AST) 18 U/L (15-37) Alanine Aminotransferase (ALT) 36 U/L (14-59) Alkaline Phosphatase 115 U/L (46-116) Creatine Kinase 22 U/L (26-192) L Creatine Kinase MB (Mass) < 0.5 ng/mL (0.0-3.6) Creatine Kinase MB Relative Index % (0-4) Troponin I Quantitative < 0.017 ng/mL (0.000-0.055) < 0.017 ng/mL (0.000-0.055) Total Protein 7.1 g/dL (6.4-8.2) Albumin 3.6 g/dL (3.4-5.0) Albumin/Globulin Ratio 1.0 (1.0-1.7) Lipase 112 U/L (73-393) GU-Oxi-B-Type Natriuretic Peptide 10 pg/mL (0-124) Urine Collection Type Void Urine Color Yellow Urine Clarity Clear Urine pH 5.5 (<5.0-8.0) Urine Specific [place] >=1.030 (1.000-1.030) Urine Protein Negative mg/dL (NEG-TRACE) Urine Glucose (UA) >=1000 mg/dL (NEG) Urine Ketones (Stick) Negative mg/dL (NEG) Urine Blood Negative (NEG) Urine Nitrite Negative (NEG) Urine Bilirubin Negative (NEG) Urine Urobilinogen Dipstick 1.0 mg/dL (0.2 mg/dL) Urine Leukocyte Esterase Negative (NEG) Urine RBC 0 /HPF (0-2) Urine WBC Occ /HPF (0-4) Urine Squamous Epithelial Cells Many /LPF Urine Bacteria Moderate /HPF (0-FEW) Laboratory Tests 09/28/20 17:10 Laboratory Tests 09/28/20 17:10 Vital Signs: Vital Signs Date Time Temp Pulse Resp B/P (MAP) Pulse Ox O2 Delivery O2 Flow Rate FiO2 09/28/20 19:58 71 16 116/60 (78) 99 Room Air 09/28/20 17:00 98.1 98.1 EKG: EK- SR rate 84 no STEMI read by Dr. Palomino[] Heart Score: HEART Score for Chest Pain: HEART Score for Chest Pain Response (Comments) Value History Slighlty/Non-Suspicious 0 ECG Normal 0 Age >45 - < 65 1 Risk Factors 1 or 2 Risk Factors 1 Troponin < Normal Limit 0 Total 2 Risk Factors: Risk Factors: DM, Current or recent (<one month) smoker, HTN, HLP, family history of CAD, obesity. Risk Scores: Score 0 - 3: 2.5% MACE over next 6 weeks - Discharge Home Score 4 - 6: 20.3% MACE over next 6 weeks - Admit for Clinical Observation Score 7 - 10: 72.7% MACE over next 6 weeks - Early Invasive Strategies Radiology/Procedures: Radiology/Procedures: PROCEDURE: CHEST AP ONLY EXAM: CHEST 1 VIEW History: Chest pain COMPARISON: 12/05/2018 TECHNIQUE: Single portable radiograph of the chest FINDINGS: The cardiac silhouette is unremarkable. Mild prominent bilateral interstitial lung markings. The costophrenic sulci are clear and well demarcated. IMPRESSION: Mild prominent bilateral interstitial lung markings likely chronic interstitial changes similar to prior exam. [] Course & Med Decision Making: Course & Med Decision Making Pertinent Labs and Imaging studies reviewed. (See chart for details) 45-year-old female presents to the emergency department with complaints of chest pain that increases with palpation and deep breaths. Patient reports that she is also out of her gabapentin that she takes 3 times a day for seizures. EKG revealed no acute findings. Chest x-ray was unremarkable. CBC was unremarkable; CMP revealed blood glucose of 337 otherwise unremarkable; CK index and troponin were negative. 2-hour repeat troponin was also negative. Patient was given 243 milligrams of aspirin. Urinalysis revealed greater than thousand glucose but was negative for ketones. I discussed these results with the patient. Patient reported no chest pain at the time of discharge. I will prescribe the patient 40 mg of gabapentin 3 times a day for the next 10 days. I encouraged her to follow-up with her primary care doctor for additional refills of this medication. I advised her that this was a one-time refill of the medication only. Instructed to return any more symptoms worsened or fever develop. Patient verbalized an understanding of home care, medications, follow-up, and return to ED instructions and was in agreement with the plan of care. [] Dragon Disclaimer: Dragon Disclaimer: This electronic medical record was generated, in whole or in part, using a voice recognition dictation system. Departure Departure Impression: Primary Impression: Costochondritis, acute Additional Impression: Medication refill Disposition: 01 DC HOME SELF CARE/HOMELESS Condition: STABLE Referrals: ANAHY GUPTA (PCP) Patient Instructions: Costochondritis, [id number], Medication Refill, Emerg ency Department Additional Instructions: Fill the prescription and take as directed. Follow up with your primary care doctor as planned. Return to the ER if your symptoms worsen or fever develops. Scripts Gabapentin (GABAPENTIN ) 400 Mg Capsule 400 MG PO TID for seizure for 10 Days, #30 CAP 0 Refills Prov: BRIANNA BEAR APRN 09/28/20 Attending Signature Attending Signature I have reviewed the PA/INVENTORY ASSOCIATE's note and plan of care. I was available for consultation as needed during the patient's visit in the emergency department. I agree with the clinical impression, plan, and disposition. Problem Qualifiers BRIANNA BEAR APRN Sep 28, 2020 17:56 ALEXIS GAMBLE DO Sep 29, 2020 01:59
[2020-09-28] MEDS ORDERED: ASPIRIN CHEWABLE 81 MG TABLET. PO ONE (18:00)
--- NOTE | 2020-09-28 18:17 | RAD ---
EXAM: CHEST 1 VIEW History: Chest pain COMPARISON: 12/05/2018 TECHNIQUE: Single portable radiograph of the chest FINDINGS: The cardiac silhouette is unremarkable. Mild prominent bilateral interstitial lung markings. The costophrenic sulci are clear and well demarcated. IMPRESSION: Mild prominent bilateral interstitial lung markings likely chronic interstitial changes similar to prior exam. Electronically signed by: Kishan Olivera MD (09/28/2020 6:14 PM) [id number]
[2020-09-28] MEDS ORDERED: GABA-689 PO (19:15)
[2020-09-28 19:41] LABS: BILIRUBIN,URINE NEGATIVE (NEG); CLARITY,URINE CLEAR; COLOR,URINE YELLOW; NITRITE,URINE NEGATIVE (NEG); PH,URINE 5.5 (<5.0-8.0); PROTEIN,URINE NEGATIVE (NEG-TRACE)
[2020-09-28 19:47] LABS: BACTERIA,URINE MODERATE /HPF (0-FEW)
[2020-09-28 19:48] LABS: RBC,URINE 0 /HPF (0-2); WBC,URINE OCC /HPF (0-4)
[2020-09-28 19:58] VITALS: BP 116/60
--- NOTE | 2020-09-29 13:40 | EKG ---
[facility] [address] [place] [address] Test Date: 2020-09-28 Test Time: 17:04:06 Pat Name: COREEN MA Department: Room: Gender: F Resistance Welder: : 1975 Requested By: BRIANNA BEAR Order Number: [id number] Reading MD: Ruperto Morales Measurements Intervals [place] Rate: 84 P: 28 ME: 160 QRS: -24 QRSD: 72 T: 42 QT: 352 QTc: 419 Interpretive Statements SINUS RHYTHM LEFTWARD AXIS Electronically Signed On 09-30-2020 10:43:02 REPORTING LEAD by Ruperto Morales
== END 2020-09-28 20:20 | disposition home or self-care (01) ==
LOC: ER 16:59
DX: M94.0 Chondrocostal junction syndrome [Tietze] (principal); Z76.0 Encounter for issue of repeat prescription; J44.9 Chronic obstructive pulmonary disease, unspecified; E11.9 Type 2 diabetes mellitus without complications; E78.00 Pure hypercholesterolemia, unspecified; G89.29 Other chronic pain; Z86.73 Personal history of transient ischemic attack (TIA), and cerebral infarction without residual deficits; F17.200 Nicotine dependence, unspecified, uncomplicated; Z90.89 Acquired absence of other organs; Z90.49 Acquired absence of other specified parts of digestive tract; Z98.51 Tubal ligation status; Z88.0 Allergy status to penicillin; Z88.8 Allergy status to other drugs, medicaments and biological substances; Z88.5 Allergy status to narcotic agent; Z88.6 Allergy status to analgesic agent; Z91.041 Radiographic dye allergy status
CPT/HCPCS: 36415; 71045; 80053; 81001; 82553; 83690; 83735; 83880; 84484; 85025; 87086; 93005; 99285-25

== ENCOUNTER 2020-11-10 17:01 | Emergency (ER) | payer MEDICAID ==
[~2020-11-10] VITALS: Ht 152.4 cm; Wt 77.0 kg
[2020-11-10 17:40] LABS: BASO # 0.1 x10^3/uL (0.0-0.2); BASO % 1 % (0-3); EOS # 0.2 x10^3/uL (0.0-0.7); EOS % 2 % (0-3); HEMATOCRIT 42.6 % (36.0-47.0); HEMOGLOBIN 14.7 g/dL (12.0-15.5); LYMPH # 2.7 x10^3/uL (1.0-4.8); LYMPH % 28 % (24-48); MEAN CORPUSCULAR HEMOGLOBIN 31 pg (25-35); MEAN CORPUSCULAR HGB CONC 35 g/dL (31-37); MEAN CORPUSCULAR VOLUME 91 fL (79-100); MONO # 0.6 x10^3/uL (0.0-1.1); MONO % 6 % (0-9); NEUT # 6.1 x10^3/uL (1.8-7.7); NEUT % 64 % (31-73); PLATELET COUNT 359 x10^3/uL (140-400); RED BLOOD COUNT 4.68 x10^6/uL (3.50-5.40); RED CELL DISTRIBUTION WIDTH 12.6 % (11.5-14.5); WHITE BLOOD COUNT 9.6 x10^3/uL (4.0-11.0)
[2020-11-10 17:46] LABS: CALCIUM 8.4 mg/dL (8.5-10.1); CREATININE 0.7 mg/dL (0.6-1.0); GFR 90.5; POTASSIUM 3.3 mmol/L (3.5-5.1)
[2020-11-10 17:52] LABS: BILIRUBIN,URINE NEGATIVE (NEG); CLARITY,URINE CLEAR; COLOR,URINE YELLOW; NITRITE,URINE NEGATIVE (NEG); PROTEIN,URINE NEGATIVE (NEG-TRACE); UROBILINOGEN,URINE 0.2 mg/dL (0.2 mg/dL)
[2020-11-10 17:56] LABS: BARBITURATES NEG (NEG); BENZODIAZEPINES NEG (NEG); CANNABINOIDS NEG (NEG); COCAINE NEG (NEG); METHADONE NEG (NEG); OPIATES NEG (NEG); PHENCYCLIDINE NEG (NEG)
[2020-11-10 17:58] LABS: ALBUMIN 3.2 g/dL (3.4-5.0); MAGNESIUM 1.9 mg/dL (1.8-2.4); TOTAL BILIRUBIN 0.1 mg/dL (0.2-1.0); TOTAL PROTEIN 6.4 g/dL (6.4-8.2)
[2020-11-10 18:00] LABS: AMPHETAMINE/METHAMPHETAMINE NEG (NEG); BACTERIA,URINE FEW /HPF (0-FEW); RBC,URINE 0 /HPF (0-2)
[2020-11-10 18:02] LABS: CREATINE KINASE 28 U/L (26-192)
[2020-11-10 18:10] VITALS: BP 112/62
[2020-11-10] MEDS ORDERED: HYDROcodone/APAP 5/325MG 1 TAB TABLET PO ONE (18:15)
--- NOTE | 2020-11-10 18:56 | RAD ---
XR CHEST 2V History: Reason: CHEST PAIN. HX OF SMOKING, ASTHMA / Spl. Instructions: / History: Comparison: September 28, 2020 Findings: Reticular mid and bibasilar opacities, unchanged. No new consolidation. No pleural effusion. No pneum othorax. Normal heart size. Surgical clips right upper quadrant. Impression: 1. Bilateral reticular opacities, may relate to chronic interstitial changes. No new consolidation. Electronically signed by: Mak Dale DO (11/10/2020 6:54 PM) [facility] [place]
--- NOTE | 2020-11-10 19:28 | PHYS DOC ---
Past Medical History Past Medical History: Asthma, CHF, COPD, CVA, Depression, Diabetes-Type II, High Cholesterol, Pneumonia, Seizure, Other Additional Past Medical Histor: degenerative joint disease, chronic pain, "stroke" x 2 Past Surgical History: Appendectomy, Cholecystectomy, Tonsillectomy, Tubal ligation, Other Additional Past Surgical Histo: hernia repair x 3 Smoking Status: Current Every Day Smoker Alcohol Use: None Drug Use: None General Adult EDM: Chief Complaint: MULTIPLE COMPLAINTS HPI: HPI: Patient is a 45 year old female who presents to the emergency department stating that she has had chest pains for the past 2 days along with a cough stating that she thinks this is her smoker's cough as she has decreased her smoking from 3 packs of cigarettes per day down to 1 pack of cigarettes per day. Patient states that she took a baby aspirin and 1000 mg of Tylenol today for her pains which helped some. Patient rates her pain at a 3/10 on a 1-10 pain scale. Patient states her pain is in the left side of her chest and does not radiate. Patient states that moving her left arm and deep breathing makes her pain get worse. Patient denies any diaphoretic episodes, denies nausea, vomiting, diarrhea. Patient denies shortness of breath, patient denies chest congestion. Patient denies nasal congestion. Patient denies sore throat fever or chills. Patient denies any other physical complaints or physical ailments today. Review of Systems: Review of Systems: 14 body systems of review of systems have been reviewed. See HPI for pertinent positives and negative responses, otherwise all other systems are negative, nonpertinent or noncontributory. Heart Score: Risk Factors: Risk Factors: DM, Current or recent (<one month) smoker, HTN, HLP, family history of CAD, obesity. Risk Scores: Score 0 - 3: 2.5% MACE over next 6 weeks - Discharge Home Score 4 - 6: 20.3% MACE over next 6 weeks - Admit for Clinical Observation Score 7 - 10: 72.7% MACE over next 6 weeks - Early Invasive Strategies Current Medications: Current Medications Medications (Trade) Dose Ordered Sig/Bret Start Time Stop Time Status Last Admin Dose Admin Acetaminophen/ Hydrocodone Bitart (Lortab 5/325) 1 tab 1X ONCE 11/10/20 18:15 11/10/20 18:16 DC 11/10/20 18:26 1 TAB Allergies: Allergies: Allergies Coded Allergies Type Severity Reaction Last Updated Verified Penicillins Allergy Intermediate 04/02/19 Yes ibuprofen Allergy Intermediate 04/02/19 Yes ketorolac Allergy Intermediate 04/02/19 Yes oxycodone Allergy Intermediate Unknown 04/02/19 Yes prednisolone Allergy Intermediate 04/02/19 Yes red dye Allergy Intermediate 04/02/19 Yes Physical Exam: PE: Constitutional: Well developed, well nourished, no acute distress, non-toxic appearance. HENT: Normocephalic, atraumatic, bilateral external ears normal, oropharynx moist, no oral exudates, nose normal. Eyes: PERRLA, EOMI, conjunctiva normal, no discharge. Neck: Normal range of motion, no tenderness, supple, no stridor. Cardiovascular:Heart rate regular rhythm, no murmur. Lungs & Thorax: Bilateral breath sounds clear to auscultation all lung [place]. Pain to palpation left side of chest, increases with passive range of motion of the left upper extremity. Abdomen: Bowel sounds normal, soft, no tenderness, no masses, no pulsatile masses. Skin: Warm, dry, no erythema, no rash. Back: No tenderness, no CVA tenderness. Extremities: No tenderness, no cyanosis, no clubbing, ROM intact, no edema. Neurologic: Alert and oriented X 3, normal motor function, normal sensory function, no focal deficits noted. Psychologic: Affect normal, judgement normal, mood normal. Current Patient Data: Labs: Laboratory Tests Test 11/10/20 17:20 11/10/20 17:30 11/10/20 17:44 White Blood Count 9.6 x10^3/uL (4.0-11.0) Red Blood Count 4.68 x10^6/uL (3.50-5.40) Hemoglobin 14.7 g/dL (12.0-15.5) Hematocrit 42.6 % (36.0-47.0) Mean Corpuscular Volume 91 fL (79-100) Mean Corpuscular Hemoglobin 31 pg (25-35) Mean Corpuscular Hemoglobin Concent 35 g/dL (31-37) Red Cell Distribution Width 12.6 % (11.5-14.5) Platelet Count 359 x10^3/uL (140-400) Neutrophils (%) (Auto) 64 % (31-73) Lymphocytes (%) (Auto) 28 % (24-48) Monocytes (%) (Auto) 6 % (0-9) Eosinophils (%) (Auto) 2 % (0-3) Basophils (%) (Auto) 1 % (0-3) Neutrophils # (Auto) 6.1 x10^3/uL (1.8-7.7) Lymphocytes # (Auto) 2.7 x10^3/uL (1.0-4.8) Monocytes # (Auto) 0.6 x10^3/uL (0.0-1.1) Eosinophils # (Auto) 0.2 x10^3/uL (0.0-0.7) Basophils # (Auto) 0.1 x10^3/uL (0.0-0.2) Sodium Level 141 mmol/L (136-145) Potassium Level 3.3 mmol/L (3.5-5.1) L Chloride Level 105 mmol/L (98-107) Carbon Dioxide Level 26 mmol/L (21-32) Anion Gap 10 (6-14) Blood Urea Nitrogen 15 mg/dL (7-20) Creatinine 0.7 mg/dL (0.6-1.0) Estimated GFR (Cockcroft-Gault) 90.5 BUN/Creatinine Ratio 21 (6-20) H Glucose Level 150 mg/dL (70-99) H Calcium Level 8.4 mg/dL (8.5-10.1) L Magnesium Level 1.9 mg/dL (1.8-2.4) Total Bilirubin 0.1 mg/dL (0.2-1.0) L Aspartate Amino Transferase (AST) 13 U/L (15-37) L Alanine Aminotransferase (ALT) 22 U/L (14-59) Alkaline Phosphatase 86 U/L (46-116) Creatine Kinase 28 U/L (26-192) Creatine Kinase MB (Mass) 0.4 ng/mL (0.0-3.6) Creatine Kinase MB Relative Index % (0-4) Troponin I Quantitative < 0.017 ng/mL (0.000-0.055) Total Protein 6.4 g/dL (6.4-8.2) Albumin 3.2 g/dL (3.4-5.0) L Albumin/Globulin Ratio 1.0 (1.0-1.7) Urine Collection Type Unknown Urine Color Yellow Urine Clarity Clear Urine pH 6.0 (<5.0-8.0) Urine Specific [place] 1.025 (1.000-1.030) Urine Protein Negative mg/dL (NEG-TRACE) Urine Glucose (UA) 500 mg/dL (NEG) Urine Ketones (Stick) Negative mg/dL (NEG) Urine Blood Negative (NEG) Urine Nitrite Negative (NEG) Urine Bilirubin Negative (NEG) Urine Urobilinogen Dipstick 0.2 mg/dL (0.2 mg/dL) Urine Leukocyte Esterase Negative (NEG) Urine RBC 0 /HPF (0-2) Urine WBC 1-4 /HPF (0-4) Urine Squamous Epithelial Cells Mod /LPF Urine Bacteria Few /HPF (0-FEW) Urine Mucus Slight /LPF Urine Opiates Screen Neg (NEG) Urine Methadone Screen Neg (NEG) Urine Barbiturates Neg (NEG) Urine Phencyclidine Screen Neg (NEG) Urine Amphetamine/Methamphetamine Neg (NEG) Urine Benzodiazepines Screen Neg (NEG) Urine Cocaine Screen Neg (NEG) Urine Cannabinoids Screen Neg (NEG) Urine Ethyl Alcohol Neg (NEG) POC Urine HCG, Qualitative Hcg negative (Negative) Laboratory Tests 11/10/20 17:20 Laboratory Tests 11/10/20 17:20 Vital Signs: Vital Signs Date Time Temp Pulse Resp B/P (MAP) Pulse Ox O2 Delivery O2 Flow Rate FiO2 11/10/20 18:10 78 112/62 (79) 99 Room Air 11/10/20 17:13 98.1 16 98.1 EKG: EKG: EKG performed 1714 by ED nursing staff show normal sinus rhythm with a heart rate 87 bpm, your interval 0.152, QTc interval 0.418, no acute STEMI, no ACS, no acute ischemia appreciated, EKG interpreted by ED attending physician Dr. Sanabria. Radiology/Procedures: Radiology/Procedures: SEX: F EXAM STATUS: REG ER ORD. PHYSICIAN: ALEXIS SEGOVIA APRN REASON: CHEST PAIN. HX OF SMOKING, ASTHMA PROCEDURE: CHEST PA & LATERAL XR CHEST 2V History: Reason: CHEST PAIN. HX OF SMOKING, ASTHMA / Spl. Instructions: / History: Comparison: September 28, 2020 Findings: Reticular mid and bibasilar opacities, unchanged. No new consolidation. No pleural effusion. No pneumothorax. Normal heart size. Surgical clips right upper quadrant. Impression: 1. Bilateral reticular opacities, may relate to chronic interstitial changes. No new consolidation. Electronically signed by: Mak Dale DO (11/10/2020 6:54 PM) [facility] DICTATED and SIGNED BY: MAK DALE DO DATE: 11/10/20 [id number] 0 Course & Med Decision Making: Course & Med Decision Making 45-year-old female vital signs reviewed presents emergency department complaining of chest pain on the left side of her chest with movement. Patient's physical exam was consistent with left-sided chest wall pain cardiac work-up was initiated in the emergency department. Patient's chest x-ray was negative for acute process per house radiologist or rotation, patient's labs were unremarkable except for serum potassium equal 3.2, patient was treated with 20 mEq p.o potassium. The patient's urine was not infected. Discussed findings with patient, patient states she will keep her appointment with her doctor at [facility] [place] tomorrow, patient states that she is now pain- free and feels much better, patient gave verbal understanding of discharge home instructions, return to the emergency department concerns, had no further questions or concerns and was discharged without incident. Impression: #1 chest wall pain #2 low serum potassium Gracia Disclaimer: Gracia Disclaimer: This electronic medical record was generated, in whole or in part, using a voice recognition dictation system. Departure Departure Impression: Primary Impression: Chest wall pain Additional Impression: Low serum potassium Disposition: 01 DC HOME SELF CARE/HOMELESS Condition: GOOD Referrals: ANAHY GUPTA (PCP) Patient Instructions: Chest Wall Pain Additional Instructions: Please keep your doctor's appointments as well [place] tomorrow, return to the emergency department for worsening symptoms or other concerns. EMERGENCY DEPARTMENT GENERAL DISCHARGE INSTRUCTIONS Thank you for coming to [facility] Emergency Department (ED) today and trusting us with you care. We trust that you had a positive experience in our Emergency Department. If you wish to speak to the department management, you may call the Director at [phone]. YOUR FOLLOW UP INSTRUCTIONS ARE FOLLOWS: 1. Do you have a private Doctor? If you do not have a private doctor, please ask for a resource list of physicians or clinics that may be able to assist you with follow up care. 2. The Emergency Physicain has interpreted your x-rays. The X-Ray specialist will also review them. If there is a change in the findings, you will be notified in 48 hours when at all possible. 3. A lab test or culture has been done, your results will be reviewed and you will be notified if you need a change in treatment. ADDITIONAL INSTRUCTIONS AND INFORMATION: 1. Your care today has been supervised by a physician who is specially trained in emergency care. Many problems require more than one evaluation for a complete diagnosis and treatment. We recommend that you schedule your follow up appointment as recommended to ensure complete treatment of you illness or injury. If you are unable to obtain follow up care and continue to have a problem, or if your condition worsens, we recommend that you return to the ED. 2. We are not able to safely determine your condition over the phone nor are we able to give sound medical advice over the phone. For these safety reasons, if you call for medical advice we will ask you to come to the ED for further evaluation. 3. If you have any questions regarding these discharge instructions please call the ED at [phone]. SAFETY INFORMATION: In the interest of safety, wellness, and injury prevention; we encourage you to wear your sealbelt, if you smoke; quite smoking, and we encourage family to use a protective helmet for bicycling and other sporting events that present an increased risk for head injury. IF YOUR SYMPTOMS WORSEN OR NEW SYMPTOMS DEVELOP, OR YOU HAVE CONCERNS ABOUT YOUR CONDITION; OR IF YOUR CONDITION WORSENS WHILE YOU ARE WAITING FOR YOUR FOLLOW UP APPOINTMENT; EITHER CONTACT YOUR PRIMARY CARE DOCTOR, THE PHYSICIAN WHOSE NAME AND NUMBER YOU WERE GIVEN, OR RETURN TO THE ED IMMEDIATELY. ALEXIS SEGOVIA APRN Nov 10, 2020 19:27
[2020-11-10] MEDS ORDERED: POTASSIUM CHLORIDE 20 MEQ TABLET.ER. PO ONE (19:30)
--- NOTE | 2020-11-11 10:53 | EKG ---
[facility] [address] [place] [address] Test Date: 2020-11-10 Test Time: 17:14:28 Pat Name: COREEN MA Department: Room: Gender: F Mental Retardation Aide: : 1975 Requested By: ALEXIS SEGOVIA Order Number: [id number] Reading MD: Measurements Intervals [place] Rate: 78 P: 26 NE: 152 QRS: -23 QRSD: 74 T: 38 QT: 364 QTc: 418 Interpretive Statements SINUS RHYTHM LEFTWARD AXIS OTHERWISE NORMAL ECG RI6.02 No previous ECG available for comparison
== END 2020-11-10 19:32 | disposition home or self-care (01) ==
LOC: ER 17:01
DX: R07.89 Other chest pain (principal); R79.0 Abnormal level of blood mineral; R05 Cough; M79.602 Pain in left arm; J44.9 Chronic obstructive pulmonary disease, unspecified; E78.00 Pure hypercholesterolemia, unspecified; E11.9 Type 2 diabetes mellitus without complications; Z86.73 Personal history of transient ischemic attack (TIA), and cerebral infarction without residual deficits; Z86.79 Personal history of other diseases of the circulatory system; F17.200 Nicotine dependence, unspecified, uncomplicated; G89.29 Other chronic pain; Z88.0 Allergy status to penicillin; Z88.5 Allergy status to narcotic agent; Z88.6 Allergy status to analgesic agent; Z91.041 Radiographic dye allergy status; Z88.8 Allergy status to other drugs, medicaments and biological substances
CPT/HCPCS: 36415; 71046; 80053; 80307; 81001; 81025; 82553; 83735; 84484; 85025; 93005; 99285-25

== ENCOUNTER 2020-12-11 14:39 | Emergency (ER) | payer MEDICAID ==
[~2020-12-11] VITALS: Ht 152.4 cm; Wt 85.0 kg
[2020-12-11] MEDS ORDERED: diazePAM 5 MG TABLET PO ONE (15:15)
[2020-12-11] MEDS ORDERED: DEXAMETHASONE SOD PHOS 4 MG/ML VIAL IM ONE (15:15)
[2020-12-11] MEDS ORDERED: LIDOCAINE (700MG/PATCH) PATCH. TD ONE (15:15)
--- NOTE | 2020-12-11 15:19 | PHYS DOC ---
Past Medical History Past Medical History: Asthma, CHF, COPD, CVA, Depression, Diabetes-Type II, High Cholesterol, Pneumonia, Seizure, Other Additional Past Medical Histor: degenerative joint disease, chronic pain, "stroke" x 2 Past Surgical History: Appendectomy, Cholecystectomy, Tonsillectomy, Tubal lig ation, Other Additional Past Surgical Histo: hernia repair x 3 Smoking Status: Current Every Day Smoker Alcohol Use: None Drug Use: None General Adult EDM: Chief Complaint: BACK PAIN OR INJURY HPI: HPI: 45-year-old female with history of HL, DM2, COPD, who p/w 1 day Hx of LBP radiating down LLE. Reports Hx of sciatica, feels that it is worsened today. Was seen at [facility] 2 days ago, Dx with PNA (now on abx), but reportedly had a CTLS at that time. On gabapentin for seizures, though no other meds for sciatica. Denies bowel or bladder dysfunction or saddle anesthesia. Review of Systems: Review of Systems: Gen: No fever, chills. CV: No CP, palpitations. Resp. No SOB, cough. GI: No abd pain, N/V. Neuro: No MARIO, dizziness, weakness. MSK: Reports myalgia, arthralgia, back pain. Remainder of systems reviewed and negative unless otherwise specified. Heart Score: Risk Factors: Risk Factors: DM, Current or recent (<one month) smoker, HTN, HLP, family history of CAD, obesity. Risk Scores: Score 0 - 3: 2.5% MACE over next 6 weeks - Discharge Home Score 4 - 6: 20.3% MACE over next 6 weeks - Admit for Clinical Observation Score 7 - 10: 72.7% MACE over next 6 weeks - Early Invasive Strategies Current Medications: Current Medications Medications (Trade) Dose Ordered Sig/[facility] Start Time Stop Time Status Last Admin Dose Admin Dexamethasone Sodium Phosphate (Decadron) 8 mg 1X ONCE 12/11/20 15:15 12/11/20 15:16 UNV Diazepam (Valium) 5 mg 1X ONCE 12/11/20 15:15 12/11/20 15:16 UNV Lidocaine (Lidoderm) 1 patch 1X 12/11/20 15:15 UNV Allergies: Allergies: Allergies Coded Allergies Type Severity Reaction Last Updated Verified Penicillins Allergy Intermediate 04/02/19 Yes ibuprofen Allergy Intermediate 04/02/19 Yes ketorolac Allergy Intermediate 04/02/19 Yes oxycodone Allergy Intermediate Unknown 04/02/19 Yes prednisolone Allergy Intermediate 04/02/19 Yes red dye Allergy Intermediate 04/02/19 Yes Physical Exam: PE: Gen: NAD. Head: NC/AT. Eyes: No scleral icterus. No conjunctival injection. ENT: MMM. Neck: Supple. NT. CV: RRR. Peripheral pulses intact. Resp: CTAB. Abd: Soft. NT. ND. Obese. MSK: No peripheral cyanosis. No edema. Negative straight leg raise. Neuro: A&Ox3. Strength & sensation grossly intact throughout. Back: No midline tenderness or step-off. Skin. Warm. Dry. Psych: Appropriate mood & affect. EKG: EKG: [] Radiology/Procedures: Radiology/Procedures: [] Course & Med Decision Making: Course & Med Decision Making Pertinent Labs and Imaging studies reviewed. (See chart for details) In summary, 45-year-old female who presents for the evaluation of atraumatic recurrent left lower back pain with radiation down the left lower extremity. Previously held a diagnosis of sciatica. On gabapentin and Keppra for seizures. No focal neurological deficits. No clinical signs or symptoms concerning for acute compressive myelopathy. CT lumbar spine report reviewed from [facility] performed on 12/09. This was negative for fractures. There was "mild L3-L4 and L5-S1 degenerative disc disease". Patient given dex IM, valium PO, lidocaine patch. Remains well appearing and nontoxic. Will treat empirically for sciatica as outpatient. Return precautions given. Gracia Disclaimer: Gracia Disclaimer: This electronic medical record was generated, in whole or in part, using a voice recognition dictation system. Departure Departure Impression: Primary Impression: Left sided sciatica Disposition: 01 DC HOME SELF CARE/HOMELESS Condition: STABLE Referrals: ANAHY GUPTA (PCP) Patient Instructions: Sciatica, [id number] Scripts Methylprednisolone (MEDROL) 4 Mg Tab.ds.pk 1 PKG PO UD for inflammation, #1 PKG Prov: LE,RONA H DO 12/11/20 Cyclobenzaprine Hcl (CYCLOBENZAPRINE HCL) 10 Mg Tablet 1 TAB PO TID, #21 TAB Prov: LE,RONA H DO 12/11/20 Lidocaine (Lidocaine PATCH ) 1 Each Adh..patch 1 EACH TP DAILY for FOR LOCAL PAIN, #10 PATCH REMOVE AFTER 12 HOURS Prov: RONA KRUGER DO 12/11/20 RONA KRUGER DO Dec 11, 2020 15:19
[2020-12-11] MEDS ORDERED: LIDO700A21 TP (16:43)
[2020-12-11] MEDS ORDERED: METH4TAB2 PO (16:43)
[2020-12-11] MEDS ORDERED: CYCL10TA2 PO (16:43)
[2020-12-11 16:50] VITALS: BP 140/79
== END 2020-12-11 17:03 | disposition home or self-care (01) ==
LOC: ER 14:39
DX: M54.42 Lumbago with sciatica, left side (principal); J44.9 Chronic obstructive pulmonary disease, unspecified; I11.0 Hypertensive heart disease with heart failure; I50.9 Heart failure, unspecified; E78.00 Pure hypercholesterolemia, unspecified; E11.9 Type 2 diabetes mellitus without complications; F17.200 Nicotine dependence, unspecified, uncomplicated; Z86.73 Personal history of transient ischemic attack (TIA), and cerebral infarction without residual deficits; Z90.89 Acquired absence of other organs; Z90.49 Acquired absence of other specified parts of digestive tract; Z98.51 Tubal ligation status; Z88.0 Allergy status to penicillin; Z88.5 Allergy status to narcotic agent; Z88.6 Allergy status to analgesic agent; Z91.041 Radiographic dye allergy status; Z88.8 Allergy status to other drugs, medicaments and biological substances
CPT/HCPCS: 96372; 99283; J1100

== ENCOUNTER 2021-01-16 12:05 | Emergency (ER) | payer MEDICAID ==
[~2021-01-16] VITALS: Ht 152.4 cm; Wt 86.0 kg
[~2021-01-16 12:05] MED LIST changes: +CYCL10TA2 PO; +LIDO700A21 TP; +METH4TAB2 PO
[2021-01-16 12:09] VITALS: BP 125/82
--- NOTE | 2021-01-16 13:52 | PHYS DOC ---
Past Medical History Past Medical History: Asthma, CHF, COPD, CVA, Depression, Diabetes-Type II, High Cholesterol, Pneumonia, Seizure, Other Additional Past Medical Histor: degenerative joint disease, chronic pain, "stroke" x 2 Past Surgical History: Appendectomy, Cholecystectomy, Tonsillectomy, Tubal lig ation, Other Additional Past Surgical Histo: hernia repair x 3 Smoking Status: Current Every Day Smoker Alcohol Use: None Drug Use: None General Adult EDM: Chief Complaint: UPPER EXTREMITY PAIN HPI: HPI: 45-year-old female presenting the emergency department today with right shoulder pain. She describes it as 8 out of 10. She just took some Tylenol this morning. This has been present for at least 2 to 3 weeks. It has worsened over the past 4 to 5 days. She denies any traumatic injuries that she can think of. She denies any fevers chills or rashes. It is worse when she moves her shoulder. She denies any numbness weakness or tingling. Review of systems negative for chest pain shortness of breath vomiting fevers c [place]. All other review of systems negative. ED course: 45-year-old female presenting with shoulder pain. On examination the patient has pain with passive range of motion of the shoulder. She has normal motor and sensory function of the hand with a palpable pulse. 2-second cap refill. Able to give an A-OK, cross fingers and give a thumbs up. Otherwise the remainder of her physical exam is unremarkable. We will give her Tylenol here in the emergency department for her pain and obtain a shoulder x-ray. Heart Score: C/O Chest Pain: No Risk Factors: Risk Factors: DM, Current or recent (<one month) smoker, HTN, HLP, family history of CAD, obesity. Risk Scores: Score 0 - 3: 2.5% MACE over next 6 weeks - Discharge Home Score 4 - 6: 20.3% MACE over next 6 weeks - Admit for Clinical Observation Score 7 - 10: 72.7% MACE over next 6 weeks - Early Invasive Strategies Allergies: Allergies: Allergies Coded Allergies Type Severity Reaction Last Updated Verified Penicillins Allergy Intermediate 04/02/19 Yes ibuprofen Allergy Intermediate 04/02/19 Yes ketorolac Allergy Intermediate 04/02/19 Yes oxycodone Allergy Intermediate Unknown 04/02/19 Yes prednisolone Allergy Intermediate 04/02/19 Yes red dye Allergy Intermediate 04/02/19 Yes Physical Exam: PE: Constitutional: Well developed, well nourished, no acute distress, non-toxic appearance. [] HENT: Normocephalic, atraumatic, bilateral external ears normal, oropharynx moist, no oral exudates, nose normal. [] Eyes: PERRLA, EOMI, conjunctiva normal, no discharge. [] Neck: Normal range of motion, no tenderness, supple, no stridor. [] Cardiovascular:Heart rate regular rhythm, no murmur [] Lungs & Thorax: Bilateral breath sounds clear to auscultation [] Abdomen: Bowel sounds normal, soft, no tenderness, no masses, no pulsatile masses. [] Skin: Warm, dry, no erythema, no rash. [] Back: No tenderness, no CVA tenderness. [] Extremities: R ARM EXAM ABOVE. The remainder the extremities are nontender with normal range of motion. Palpable pulse and normal neurovascular status. Neurologic: Alert and oriented X 3, normal motor function, normal sensory function, no focal deficits noted. [] Psychologic: Affect normal, judgement normal, mood normal. [] Current Patient Data: Vital Signs: Vital Signs Date Time Temp Pulse Resp B/P (MAP) Pulse Ox O2 Delivery O2 Flow Rate FiO2 01/16/21 12:09 98.1 93 12 125/82 (96) 97 Room Air 98.1 EKG: EKG: [] Radiology/Procedures: Radiology/Procedures: [] Course & Med Decision Making: Course & Med Decision Making Pertinent Labs and Imaging studies reviewed. (See chart for details) [] Dragon Disclaimer: Gracia Disclaimer: This electronic medical record was generated, in whole or in part, using a voice recognition dictation system. Departure Departure Impression: Primary Impression: Shoulder pain, right Disposition: 01 DC HOME SELF CARE/HOMELESS Condition: STABLE Referrals: ANAHY GUPTA (PCP) Patient Instructions: Shoulder Pain, [id number] Additional Instructions: EMERGENCY DEPARTMENT GENERAL DISCHARGE INSTRUCTIONS Follow-up with your primary physician in 1 to 2 days. Return to the emergency department if you have any new or concerning findings. Thank you for coming to [facility] Emergency Department (ED) today and trusting us with you care. We trust that you had a positive experience in our Emergency Department. If you wish to speak to the department management, you may call the Director at [phone]. Follow up is important in emergency/acute care visits. This condition should be evaluated by your primary care physician and any necessary consulting services for continued management within a few days (1-2) after discharge. Return to the emergency department if you have any new or concerning symptoms including but not limited to fever, chills, nausea, vomiting, intractable pain, any new rashes, chest pain, shortness of breath, uncontrolled bleeding, difficulty breathing, and/or vision loss. 1. Do you have a private Doctor? If you do not have a private doctor, please ask for a resource list of physicians or clinics that may be able to assist you with follow up care. 2. If a lab test or culture has been done and does not come back immediately, your results will be reviewed and you will be notified if you need a change in treatment. 3. Your care today has been supervised by a physician who is specially trained in emergency care. Many problems require more than one evaluation for a complete diagnosis and treatment. We recommend that you schedule your follow up appointment as recommended to ensure complete treatment of you illness or injury. If you are unable to obtain follow up care and continue to have a pr oblem, or if your condition worsens, we recommend that you return to the ED. 4. We are not able to safely determine your condition over the phone nor are we able to give sound medical advice over the phone. For these safety reasons, if you call for medical advice we will ask you to come to the ED for further evaluation. IF YOUR SYMPTOMS WORSEN OR NEW SYMPTOMS DEVELOP, OR YOU HAVE CONCERNS ABOUT YOUR CONDITION; OR IF YOUR CONDITION WORSENS WHILE YOU ARE WAITING FOR YOUR FOLLOW UP APPOINTMENT; EITHER CONTACT YOUR PRIMARY CARE DOCTOR, THE PHYSICIAN WHOSE NAME AND NUMBER YOU WERE GIVEN, OR RETURN TO THE ED IMMEDIATELY. EVAN MORENO MD Jan 16, 2021 13:51
[2021-01-16] MEDS ORDERED: ACETAMINOPHEN 325 MG TABLET. PO ONE (14:15)
--- NOTE | 2021-01-16 14:32 | RAD ---
INDICATION: Reason: RIGHT SHOULDER PAIN. NO KNOWN INJURY / Spl. Instructions: / History: COMPARISON: None. IMPRESSION: Right shoulder: 3 views obtained. No acute fracture or dislocation. Electronically signed by: Parker White MD (01/16/2021 2:30 PM) [id number]
== END 2021-01-16 15:28 | disposition home or self-care (01) ==
LOC: ER 12:05
DX: M25.511 Pain in right shoulder (principal); J44.9 Chronic obstructive pulmonary disease, unspecified; E11.8 Type 2 diabetes mellitus with unspecified complications; I50.9 Heart failure, unspecified; F32.9 Major depressive disorder, single episode, unspecified; E78.00 Pure hypercholesterolemia, unspecified; F17.200 Nicotine dependence, unspecified, uncomplicated; G89.29 Other chronic pain; Z90.89 Acquired absence of other organs; Z90.49 Acquired absence of other specified parts of digestive tract; Z98.51 Tubal ligation status; Z98.890 Other specified postprocedural states; Z86.73 Personal history of transient ischemic attack (TIA), and cerebral infarction without residual deficits; Z88.0 Allergy status to penicillin; Z88.5 Allergy status to narcotic agent; Z88.8 Allergy status to other drugs, medicaments and biological substances; Z91.040 Latex allergy status; Z88.2 Allergy status to sulfonamides
CPT/HCPCS: 73030; 99283

== ENCOUNTER 2021-05-08 14:38 | Emergency (ER) | payer MEDICAID ==
[~2021-05-08] VITALS: Ht 152.4 cm; Wt 77.5 kg
[2021-05-08 14:46] VITALS: BP 162/75
[2021-05-08 16:23] LABS: BILIRUBIN,URINE NEGATIVE (NEG); CLARITY,URINE CLEAR; COLOR,URINE YELLOW; NITRITE,URINE NEGATIVE (NEG); PROTEIN,URINE NEGATIVE (NEG-TRACE); UROBILINOGEN,URINE 0.2 mg/dL (0.2 mg/dL)
[2021-05-08 16:37] LABS: YEAST,URINE PRESENT /HPF
[2021-05-08 16:39] LABS: BACTERIA,URINE 0 /HPF (0-FEW); RBC,URINE 0 /HPF (0-2); WBC,URINE 0 /HPF (0-4)
--- NOTE | 2021-05-08 17:00 | RAD ---
EXAM: ULTRASOUND PELVIS INDICATION: Reason: pelvic pain, cramping wtih menstration COMPARISON: None TECHNIQUE: Transabdominal sonography was performed. FINDINGS: Uterus measures 7.5 x 4.4 x 3.4 cm. Endometrium is 3 mm in thickness. Right ovary measures 2.5 x 2.0 x 1.3 cm. Left ovary measures 3.0 x 2.5 x 1.6 cm Vascular flow identified in the ovaries bilaterally. No free fluid identified in the pelvis. IMPRESSION: Normal sonographic appearance of the uterus and ovaries. No evidence for torsion. Electronically signed by: Yari Pablo MD (05/08/2021 4:58 PM) IAN
--- NOTE | 2021-05-08 17:18 | ED.ADGEN ---
Past Medical History Past Medical History: Asthma, CHF, COPD, CVA, Depression, Diabetes-Type II, High Cholesterol, Pneumonia, Seizure, Other Additional Past Medical Histor: degenerative joint disease, chronic pain, "stroke" x 2, NEUROPATHY Past Surgical History: Appendectomy, Cholecystectomy, Tonsillectomy, Tubal ligation, Other Additional Past Surgical Histo: hernia repair x 3 Smoking Status: Current Every Day Smoker Alcohol Use: None Drug Use: None General Adult EDM: Chief Complaint: VAGINAL BLEEDING HPI: HPI: Patient is a 45 year old female who presents to the emergency department with complaints of heavy to light vaginal bleeding for the last 5 days with increased pelvic cramps. Patient states that her menstrual cycles only last 3 days but have been lasting for up to 7 days for several months. She denies saturating more than a pad an hour. She reports that her primary care doctor who recently fired her had previously told her that if this happens more than 4 times she needed to seek medical care. Patient denies any irregular vaginal odor, or vaginal discharge prior to the onset of her menstrual cycle. She denies any pelvic pain, abdominal pain, nausea, vomiting, diarrhea, dysuria, hematuria, or increased urinary frequency. She denies any fever, cough, body a ches, or fatigue. She currently denies any pain. Review of Systems: Review of Systems: Complete ROS is negative unless otherwise noted in HPI. Allergies: Allergies: Allergies Coded Allergies Type Severity Reaction Last Updated Verified Penicillins Allergy Intermediate 04/02/19 Yes ibuprofen Allergy Intermediate 04/02/19 Yes ketorolac Allergy Intermediate 04/02/19 Yes oxycodone Allergy Intermediate Unknown 04/02/19 Yes prednisolone Allergy Intermediate 04/02/19 Yes red dye Allergy Intermediate 04/02/19 Yes Physical Exam: PE: See Above Constitutional: Well developed, well nourished, no acute distress, non-toxic appearance. [] HENT: Normocephalic, atraumatic, bilateral external ears normal, nose normal. [] Eyes: PERRLA, EOMI, conjunctiva normal, no discharge. [] Neck: Normal range of motion, no stridor. [] Cardiovascular:Heart rate regular rhythm Lungs & Thorax: Respirations even and unlabored, no retractions, no respiratory distress Abdomen: soft, no tenderness, no palpable mass, no pulsatile mass Skin: Warm, dry, no erythema, no rash. [] Extremities: No cyanosis, ROM intact, no edema. [] Neurologic: Alert and oriented X 3, no focal deficits noted. [] Psychologic: Affect normal, judgement normal, mood normal. [] Current Patient Data: Labs: Laboratory Tests Test 05/08/21 15:36 05/08/21 15:42 Urine Collection Type Unknown Urine Color Yellow Urine Clarity Clear Urine pH 6.0 (<5.0-8.0) Urine Specific [place] >=1.030 (1.000-1.030) Urine Protein Negative mg/dL (NEG-TRACE) Urine Glucose (UA) >=1000 mg/dL (NEG) Urine Ketones (Stick) Negative mg/dL (NEG) Urine Blood Small (NEG) Urine Nitrite Negative (NEG) Urine Bilirubin Negative (NEG) Urine Urobilinogen Dipstick 0.2 mg/dL (0.2 mg/dL) Urine Leukocyte Esterase Negative (NEG) Urine RBC 0 /HPF (0-2) Urine WBC 0 /HPF (0-4) Urine Squamous Epithelial Cells Few /LPF Urine Bacteria 0 /HPF (0-FEW) Urine Yeast Present /HPF POC Urine HCG, Qualitative Hcg negative (Negative) Vital Signs: Vital Signs Date Time Temp Pulse Resp B/P (MAP) Pulse Ox O2 Delivery O2 Flow Rate FiO2 05/08/21 14:46 97.5 93 15 162/75 (96) 97 Room Air 97.5 EKG: EKG: [] Heart Score: C/O Chest Pain: No Risk Scores: Score 0 - 3: 2.5% MACE over next 6 weeks - Discharge Home Score 4 - 6: 20.3% MACE over next 6 weeks - Admit for Clinical Observation Score 7 - 10: 72.7% MACE over next 6 weeks - Early Invasive Strategies Radiology/Procedures: Radiology/Procedures: PROCEDURE: PELVIS COMPLETE EXAM: ULTRASOUND PELVIS INDICATION: Reason: pelvic pain, cramping wtih menstration COMPARISON: None TECHNIQUE: Transabdominal sonography was performed. FINDINGS: Uterus measures 7.5 x 4.4 x 3.4 cm. Endometrium is 3 mm in thickness. Right ovary measures 2.5 x 2.0 x 1.3 cm. Left ovary measures 3.0 x 2.5 x 1.6 cm Vascular flow identified in the ovaries bilaterally. No free fluid identified in the pelvis. IMPRESSION: Normal sonographic appearance of the uterus and ovaries. No evidence for torsion. Electronically signed by: Yari Pablo MD (05/08/2021 4:58 PM) [facility] [] Course & Med Decision Making: Course & Med Decision Making Pertinent Labs and Imaging studies reviewed. (See chart for details) [] Dragon Disclaimer: Dragon Disclaimer: This electronic medical record was generated, in whole or in part, using a voice recognition dictation system. Departure Departure Impression: Primary Impression: Painful menstruation Additional Impression: Crampy pain associated with menses Disposition: 01 HOME / SELF CARE / HOMELESS Condition: STABLE Referrals: HIRAM BARRERA Jr, MD Patient Instructions: Menorrhagia, Onor-nw-Prii Additional Instructions: Take [id number]-[id number]-gfrdorr Midol or ibuprofen as discussed. Your ultrasound was normal and your urine was not concerning for urinary tract infection. Congratulations on your weight loss!!! Follow-up with your primary care doctor or Dr. Barrera for further evaluation of your menstrual problems. Problem Qualifiers BRIANNA BEAR APRN May 08, 2021 17:18
== END 2021-05-08 17:22 | disposition home or self-care (01) ==
LOC: ER 14:38
DX: N94.6 Dysmenorrhea, unspecified (principal); R25.2 Cramp and spasm; J44.9 Chronic obstructive pulmonary disease, unspecified; E78.00 Pure hypercholesterolemia, unspecified; E11.40 Type 2 diabetes mellitus with diabetic neuropathy, unspecified; Z86.73 Personal history of transient ischemic attack (TIA), and cerebral infarction without residual deficits; F17.200 Nicotine dependence, unspecified, uncomplicated; Z90.89 Acquired absence of other organs; Z90.49 Acquired absence of other specified parts of digestive tract; Z98.51 Tubal ligation status; Z88.0 Allergy status to penicillin; Z88.5 Allergy status to narcotic agent; Z88.6 Allergy status to analgesic agent; Z91.041 Radiographic dye allergy status; Z88.8 Allergy status to other drugs, medicaments and biological substances
CPT/HCPCS: 76856; 81001; 81025; 99284-25

== ENCOUNTER 2021-06-11 16:17 | Emergency (ER) | payer MEDICAID ==
[~2021-06-11] VITALS: Ht 152.4 cm; Wt 77.1 kg
[2021-06-11 17:39] VITALS: BP 127/78
[2021-06-11] MEDS ORDERED: GABA800T5 PO (18:31)
[2021-06-11] MEDS ORDERED: LEVE750T41 PO (18:31)
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
== END 2021-06-11 19:09 | disposition home or self-care (01) ==
LOC: ER 16:17
DX: R56.9 Unspecified convulsions (principal); Z76.0 Encounter for issue of repeat prescription; J44.9 Chronic obstructive pulmonary disease, unspecified; I50.9 Heart failure, unspecified; E11.40 Type 2 diabetes mellitus with diabetic neuropathy, unspecified; E78.00 Pure hypercholesterolemia, unspecified; G89.29 Other chronic pain; F17.200 Nicotine dependence, unspecified, uncomplicated; Z86.73 Personal history of transient ischemic attack (TIA), and cerebral infarction without residual deficits; Z88.0 Allergy status to penicillin; Z88.5 Allergy status to narcotic agent; Z91.041 Radiographic dye allergy status; Z88.8 Allergy status to other drugs, medicaments and biological substances
CPT/HCPCS: 99283